=== PATIENT | female | born 1945 ===

== ENCOUNTER 2017-07-12 09:09 | Inpatient (IN) | payer SELFPAY ==
[2017-06-30 09:16] VITALS: BMI 40.2
[2017-07-12] MEDS ORDERED: Rocuronium 10 mg/ml (5 ml) ONE ×2 (09:35→12:04)
[2017-07-12] MEDS ORDERED: Lidocaine 4% (Laryng-O-Jet) Kit MM ONE ×2 (09:35→09:43)
[2017-07-12] MEDS ORDERED: Succinylcholine 200 mg/10 ml Inj IV ONE (09:35)
[2017-07-12] MEDS ORDERED: Propofol 10 mg/ml Inj (20 ML) ONE (09:35)
[2017-07-12] MEDS ORDERED: Midazolam 2 MG/2 ML VIAL ONE (09:35)
[2017-07-12] MEDS ORDERED: ceFAZolin IV 1 gm in Dextrose 2 GM/100 ML BAG IVPB ONE (10:07)
[2017-07-12] MEDS ORDERED: Bupivacaine 0.5% Inj(30mL) ONE (10:07)
--- NOTE | 2017-07-12 10:08 | CP.PCM.HP ---
History of Present Illness - History of Present Illness History of Present Illness: General surgery H & P for Dr. Indiana Quintana, PGY-1 Pt S & E at bedside. 72F w/PMH sig for recurrent ventral hernia s/p laparoscopic hernia repair (2016 ) admitted s/p open ventral hernia repair. Pt seen/evaluated in clinic with recommendations for elective ventral hernia repair and subsequent admission afterwards. Pt reports symptoms of pain upon standing due to hernia. Denies other complaints. PMH: HTN, DM, recurrent ventral hernia, morbid obesity PSH: Laparoscopic ventral hernia repair (2016) All: NKDA Present on Admission - Present on Admission Any Indicators Present on Admission: No History of DVT/PE: No History of Uncontrolled Diabetes: No Urinary Catheter: No Decubitus Ulcer Present: No Review of Systems - Review of Systems All systems: reviewed and no additional remarkable complaints except - Constitutional Constitutional: absent: Chills, Fever - EENT Eyes: absent: Change in Vision - Cardiovascular Cardiovascular: absent: Chest Pain - Respiratory Respiratory: absent: Cough - Gastrointestinal Gastrointestinal: Abdominal Pain (upon standing). absent: Change in Bowel Habits, Nausea, Vomiting - Genitourinary Genitourinary: absent: Change in Urinary Stream - Neurological Neurological: absent: Weakness - Psychiatric Psychiatric: absent: Change in Appetite Past Patient History - Infectious Disease Hx of Infectious Diseases: None - Tetanus Immunizations Tetanus Immunization: Unknown - Past Medical History & Family History Past Medical History?: Yes - Past Social History Smoking Status: Former Smoker - CARDIAC Hx Cardiac Disorders: Yes Hx Hypercholesterolemia: Yes Hx Hypertension: Yes - PULMONARY Hx Respiratory Disorders: No - NEUROLOGICAL Hx Neurological Disorder: No - HEENT Hx HEENT Problems: No - RENAL Hx Chronic Kidney Disease: No - ENDOCRINE/METABOLIC Hx Endocrine Disorders: Yes Hx Diabetes Mellitus Type 2: Yes Hx Hyperthyroidism: Yes Hx Hypothyroidism: Yes - HEMATOLOGICAL/ONCOLOGICAL Hx Blood Disorders: No Hx AIDS: No Hx Human Immunodeficiency Virus (HIV): No - INTEGUMENTARY Hx Dermatological Problems: No - MUSCULOSKELETAL/RHEUMATOLOGICAL Hx Musculoskeletal Disorders: No Hx Arthritis: Yes Hx Falls: No - GASTROINTESTINAL Hx Gastrointestinal Disorders: No - GENITOURINARY/GYNECOLOGICAL Hx Genitourinary Disorders: No - PSYCHIATRIC Hx Psychophysiologic Disorder: Yes Hx Depression: Yes Hx Substance Use: No - SURGICAL HISTORY Hx Surgeries: Yes (colon surgery 12/25/2014) Hx Herniorrhaphy: Yes (INCISONAL HERNIA) Other/Comment: Exploratory laparotomy with sigmoid colon resection on 12/25/14 - ANESTHESIA Hx Anesthesia: Yes Hx Anesthesia Reactions: No Hx Malignant Hyperthermia: No Has any member of the family had a problem w/ anesthesia?: No Meds Allergies/Adverse Reactions: Allergies Allergy/AdvReac Type Severity Reaction Status Date / Time No Known Allergies Allergy Verified 07/12/17 11:45 Physical Exam - Constitutional Appears: Non-toxic, No Acute Distress - Head Exam Head Exam: ATRAUMATIC, NORMAL INSPECTION, NORMOCEPHALIC - Eye Exam Eye Exam: EOMI, Normal appearance - ENT Exam ENT Exam: Mucous Membranes Moist, Normal Exam - Neck Exam Neck exam: Positive for: Full Rom, Normal Inspection - Respiratory Exam Respiratory Exam: Clear to Auscultation Bilateral, NORMAL BREATHING PATTERN - Cardiovascular Exam Cardiovascular Exam: REGULAR RHYTHM, +S1, +S2 - GI/Abdominal Exam GI & Abdominal Exam: Hernia (ventral, lower abdomen), Soft. absent: Distended ( obese), Firm, Guarding, Rebound, Rigid, Tenderness - Extremities Exam Extremities exam: Positive for: normal inspection - Neurological Exam Neurological exam: Alert, CN II-XII Intact, Oriented x3 - Psychiatric Exam Psychiatric exam: Normal Affect, Normal Mood - Skin Skin Exam: Dry, Intact, Normal Color, Warm Results - Vital Signs Recent Vital Signs: Last Vital Signs Temp 97.6 F 07/01/17 07:35 Pulse 76 07/01/17 07:35 Resp 18 07/01/17 07:35 BP 118/74 07/01/17 07:35 Pulse Ox - Labs Labs: Laboratory Results - last 24 hr 07/12/17 09:49 POC Glucose (mg/dL) 149 H Assessment & Plan - Assessment and Plan (Free Text) Assessment: 72F w/PMH sig for DM, HTN, recurrent ventral hernia admitted s/p open ventral hernia repair Plan: Admit to med-surg Pain control IVF Anti-emetic SCDs/TEDs Encourage IS use PT/ambulate VS Q8H Insulin sliding scale Accuchecks resume home meds Diabetic/HHD DW attending Lilian, PGY-1 - Date & Time Date: 07/12/17 Time: 10:50 Decision To Admit - Pt Status Changed To: Hospital Disposition Of: Inpatient - Admit Certification Admit to Inpatient:: After my assessment, the patient will require hospitalization for at least two midnights. This is because of the severity of symptoms shown, intensity of services needed, and/or the medical risk in this patient being treated as an outpatient. - . Bed Request Type: Med/Surg Admitting Physician: Herman Horvath
[2017-07-12] MEDS ORDERED: Lactated Ringer's 1,000 ML IV ONE ×4 (10:15→14:35)
[2017-07-12] MEDS: HYDROmorphone 0.5 mg/0.5 ml ISec IVP PRN ×5 (12:55→17:08)
--- NOTE | 2017-07-12 15:24 | PCM.SURG1 ---
Surgeon's Initial Post Op Note - Surgeon's Notes Surgeon: Herman Horvath MD [employer] Specialist: Jamal Camara PGY-3; Sobeida Quintana PGY-1 Pre-Operative Diagnosis: Recurrent ventral hernia Operative Findings: see op report Post-Operative Diagnosis: ventral hernia Operation Performed: open ventral hernia repair with mesh, enterolysis Specimen/Specimens Removed: None Estimated Blood Loss: EBL {In ML}: 10 Blood Products Given: N/A Drains Used: Stew Post-Op Condition: Good Date of Surgery/Procedure: 07/12/17 Time of Surgery/Procedure: 12:05
[2017-07-12] MEDS: Insulin Lispro (humaLOG) 100 Units/ml Inj SC SCH ×2 (17:14→21:37)
[2017-07-12] MEDS ORDERED: DiphenhydrAMINE 50 mg/ml Inj IVP PRN (22:54)
[2017-07-13] MEDS: HYDROmorphone 0.5 mg/0.5 ml ISec IVP PRN (05:09)
[2017-07-13] MEDS: Levothyroxine 125 MCG TAB PO SCH (06:29)
--- NOTE | 2017-07-13 07:14 | CP.PCM.PN ---
Subjective - Date & Time of Evaluation Date of Evaluation: 07/13/17 Time of Evaluation: 07:11 - Subjective Subjective: General Surgery: Dr Horvath Pt S&E. POD#1 s/p ventral hernia repair. Pt states pain well controlled. Tolerating CLD. denies any flatus yet. Using incentive spirometer. Has not yet been OOB to ambulate. Denies N/V, F/C drain 80cc serosanguinous Objective - Vital Signs/Intake and Output Vital Signs (last 24 hours): Temp Pulse Resp BP Pulse Ox 98.6 F 100 H 20 112/74 95 07/12/17 23:44 07/12/17 23:44 07/12/17 23:44 07/12/17 23:44 07/12/17 23:44 Intake and Output: 07/13/17 07/13/17 06:59 18:59 Intake Total 200 Balance 200 - Medications Medications: Current Medications Aspirin (Aspirin Chewable) 81 mg PO DAILY [facility] Last Admin: 07/12/17 17:14 Dose: 81 mg Diphenhydramine HCl (Benadryl) 25 mg IVP HS PRN PRN Reason: Insomnia Last Admin: 07/12/17 23:16 Dose: 25 mg Hydromorphone HCl (Dilaudid) 0.5 mg IVP Q3 PRN PRN Reason: Pain, moderate (4-7) Last Admin: 07/13/17 05:09 Dose: 0.5 mg Insulin Human Lispro (Humalog) 0 units SC ACHS [facility] PRN Reason: Protocol Last Admin: 07/12/17 21:37 Dose: Not Given Levothyroxine Sodium (Synthroid) 125 mcg PO DAILY@0630 [facility] Last Admin: 07/13/17 06:29 Dose: 125 mcg Losartan Potassium (Cozaar) 25 mg PO DAILY [facility] Last Admin: 07/12/17 17:08 Dose: 25 mg Ondansetron HCl (Zofran Inj) 4 mg IVP Q4 PRN PRN Reason: Nausea/Vomiting Last Admin: 07/12/17 15:19 Dose: 4 mg - Constitutional Appears: Non-toxic, No Acute Distress - Head Exam Head Exam: NORMAL INSPECTION - Eye Exam Eye Exam: Normal appearance - ENT Exam ENT Exam: Mucous Membranes Moist - Respiratory Exam Respiratory Exam: absent: Accessory Muscle Use, Respiratory Distress - Cardiovascular Exam Cardiovascular Exam: REGULAR RHYTHM. absent: Tachycardia - GI/Abdominal Exam GI & Abdominal Exam: Soft, Tenderness (post-op and appropriate). absent: Distended, Firm, Guarding, Rigid Additional comments: midline dressing with minimal saturation - Neurological Exam Neurological Exam: Alert, Awake, Oriented x3 - Psychiatric Exam Psychiatric exam: Normal Affect, Normal Mood - Skin Skin Exam: Normal Color Assessment and Plan - Assessment and Plan (Free Text) Assessment: 72F POD#1 s/p ventral hernia repair Plan: cont CLD, monitor for flatus OOB and ambulate cont pain control PRN continue incentive spirometer possible d/c today vs tomorrow pending pt progress will d/w Dr Alexandru Camara, PGY3
[2017-07-13] MEDS ORDERED: HYDROmorphone 0.5 mg/0.5 ml ISec IVP PRN (07:16)
[2017-07-13] MEDS: Insulin Lispro (humaLOG) 100 Units/ml Inj SC SCH ×4 (09:23→22:06)
[2017-07-13] MEDS: Oxycodone/Acetaminophen 5/325 mg Tab PO PRN ×2 (15:05→20:04)
--- NOTE | 2017-07-13 22:35 | OP ---
PROCEDURE DATE: 07/12/2017 SURGEON: Herman Horvath M.D. ASSISTANTS: Dr. Camara and Dr. Quintana. ANESTHESIA: General. PREOPERATIVE DIAGNOSIS: Recurrent incisional hernia. POSTOPERATIVE DIAGNOSIS: Recurrent incisional hernia. PROCEDURE: Incisional hernia repair with mesh and enterolysis. DESCRIPTION OF OPERATION: With the patient in the supine position under adequate general anesthesia, the abdomen was prepped and draped in the usual sterile manner. The patient is status post a previous Pfannenstiel incision, which had herniated and she is also status post a laparoscopic incisional hernia repair. A longitudinal midline incision was made in the lower abdomen from the pubis to the umbilicus and the peritoneum was opened in the midline. The previously placed laparoscopic mesh was palpable, fixed to both sides of the midline; however, it appeared to be prolapsed into herniation into the abdominal anterior pannus and extending when the patient is standing over the pubic tubercle. The small bowel was completely freed from any adhesions to the mesh and displaced into the upper abdomen. Omental adhesions were noted primarily to the left side of the abdominal wall and the mesh and these were lysed as well and a portion of the mesh, which was flaccid was excised along with a portion of the adherent omentum. The mesh which was well incorporated into the peritoneal surface of the abdominal wall was not removed. In addition, transfascial sutures in the lower portion of the wound were also noted to be loose and they were removed. The defect was primarily in the area just above the pubic tubercle and there was suspicion of a bladder diverticulum entering this hernia as well on the CAT scan. The patient had a Aguilar catheter placed prior to surgery and careful dissection was made with the atrophic uterus being identified and the Aguilar catheter palpated. A peritoneal flap was raised anterior to the uterus to assure that no bladder was incorporated within the abdominal cavity. When all adhesions had been lysed, there was noted to be fascial thinning just above the pubic tubercle and the midline was partially closed from the inferior border of the incision approximately a third [address] way up using running suture of double-stranded #1 PDS to ensure that the mesh could be properly placed all the way down to the pubic tubercle. So, once the midline had been partially closed, a 15 x 20 cm skirted Parietex mesh was positioned with the coated surface facing the bowel and the skirt against the anterior abdominal wall. The skirted portion of the mesh was then widely fixed to the anterior abdominal wall using the appropriate stapler and the mesh was noted to lay fairly taut against the abdominal wall with no area of sagging. Once the mesh had been completely implanted, the remainder of the midline was sutured closed with minimal tension using running suture of double-stranded #1 PDS. In addition, a horizontal area of weakness along the lower edge of the Pfannenstiel incision was reinforced with an additional transverse layer of 0 Vicryl. A drain was placed in the subcutaneous layer and brought out through a stab incision and the incision was closed with interrupted subcutaneous tissues of 3-0 Vicryl and skin ruslan. A dry sterile dressing was applied. The patient tolerated the procedure well and transferred to the recovery room in stable condition. Estimated blood loss for the procedure was 50 mL. Herman Horvath MD
[2017-07-14] MEDS: Oxycodone/Acetaminophen 5/325 mg Tab PO PRN ×2 (02:41→08:26)
[2017-07-14] MEDS: Levothyroxine 125 MCG TAB PO SCH (05:58)
--- NOTE | 2017-07-14 07:34 | CP.PCM.PN ---
Subjective - Date & Time of Evaluation Date of Evaluation: 07/14/17 Time of Evaluation: 07:32 - Subjective Subjective: General Surgery: Dr Horvath Pt S&E. POD#2 s/p ventral hernia. Pt states pain is improved. Still with throat discomfort. Denies any further nausea. Has not yet passed flatus. OOB and ambulating. Objective - Vital Signs/Intake and Output Vital Signs (last 24 hours): Temp Pulse Resp BP Pulse Ox 99.3 F 101 H 18 101/66 96 07/13/17 23:25 07/13/17 23:25 07/13/17 23:25 07/13/17 23:25 07/13/17 23:25 Intake and Output: 07/14/17 07/14/17 06:59 18:59 Intake Total 100 Output Total 200 Balance -100 - Medications Medications: Current Medications Aspirin (Aspirin Chewable) 81 mg PO DAILY [facility] Last Admin: 07/13/17 08:26 Dose: 81 mg Diphenhydramine HCl (Benadryl) 25 mg IVP HS PRN PRN Reason: Insomnia Last Admin: 07/12/17 23:16 Dose: 25 mg Hydromorphone HCl (Dilaudid) 0.5 mg IVP Q3 PRN PRN Reason: Pain, moderate (4-7) Last Admin: 07/13/17 11:27 Dose: 0.5 mg Insulin Human Lispro (Humalog) 0 units SC [facility] PRN Reason: Protocol Last Admin: 07/13/17 22:06 Dose: Not Given Levothyroxine Sodium (Synthroid) 125 mcg PO DAILY@0630 [facility] Last Admin: 07/14/17 05:58 Dose: 125 mcg Losartan Potassium (Cozaar) 25 mg PO DAILY [facility] Last Admin: 07/13/17 08:26 Dose: 25 mg Ondansetron HCl (Zofran Inj) 4 mg IVP Q4 PRN PRN Reason: Nausea/Vomiting Last Admin: 07/12/17 15:19 Dose: 4 mg Oxycodone/Acetaminophen (Percocet 5/325 Mg Tab) 1 tab PO Q4 PRN PRN Reason: Pain, Mild (1-3) Stop: 07/16/17 07:16 Last Admin: 07/14/17 02:41 Dose: 1 tab - Constitutional Appears: Non-toxic, No Acute Distress - Head Exam Head Exam: NORMAL INSPECTION - ENT Exam ENT Exam: Mucous Membranes Moist - Respiratory Exam Respiratory Exam: absent: Accessory Muscle Use, Respiratory Distress - Cardiovascular Exam Cardiovascular Exam: REGULAR RHYTHM. absent: Tachycardia - GI/Abdominal Exam GI & Abdominal Exam: Soft, Tenderness (post-op and appropriate). absent: Distended, Firm, Guarding Additional comments: midline dressing w/ minimal saturation - Neurological Exam Neurological Exam: Alert, Awake, Oriented x3 - Psychiatric Exam Psychiatric exam: Normal Affect, Normal Mood - Skin Skin Exam: Normal Color, Warm Assessment and Plan - Assessment and Plan (Free Text) Assessment: 72F POD#2 s/p ventral hernia repair Plan: cont IS will get PT eval monitor for flatus will d/w Dr Alexandru Camara, PGY3
[2017-07-14] MEDS: Insulin Lispro (humaLOG) 100 Units/ml Inj SC SCH ×4 (08:23→21:34)
[2017-07-14] MEDS: Simethicone 80 mg Chewtab PO PRN ×2 (14:53→16:29)
[2017-07-15] MEDS: Levothyroxine 125 MCG TAB PO SCH (06:29)
--- NOTE | 2017-07-15 07:19 | CP.PCM.PN ---
Subjective - Date & Time of Evaluation Date of Evaluation: 07/15/17 Time of Evaluation: 07:18 - Subjective Subjective: General Surgery Progress Note for Dr. Horvath Patient was seen and examined this AM at bedside. No acute events overnight aside from an isolated fever of 101.1. Patient complaining of abdominal pain on her right side. Tolerating CLD. Denies nausea vomiting fevers chills chest pain. Denies BM or flatus. Objective - Vital Signs/Intake and Output Vital Signs (last 24 hours): Temp Pulse Resp BP Pulse Ox 99.3 F 108 H 18 116/72 95 07/15/17 00:27 07/14/17 23:49 07/14/17 23:49 07/14/17 23:49 07/14/17 23:49 Intake and Output: 07/15/17 07/15/17 06:59 18:59 Output Total 10 Balance -10 - Medications Medications: Current Medications Acetaminophen (Tylenol 325mg Tab) 650 mg PO Q6 PRN PRN Reason: Temperature Last Admin: 07/14/17 23:27 Dose: 650 mg Aspirin (Aspirin Chewable) 81 mg PO DAILY [facility] Last Admin: 07/14/17 08:23 Dose: 81 mg Diphenhydramine HCl (Benadryl) 25 mg IVP HS PRN PRN Reason: Insomnia Last Admin: 07/12/17 23:16 Dose: 25 mg Insulin Human Lispro (Humalog) 0 units SC ACHS [facility] PRN Reason: Protocol Last Admin: 07/14/17 21:34 Dose: Not Given Levothyroxine Sodium (Synthroid) 125 mcg PO DAILY@0630 [facility] Last Admin: 07/15/17 06:29 Dose: 125 mcg Losartan Potassium (Cozaar) 25 mg PO DAILY [facility] Last Admin: 07/14/17 08:22 Dose: 25 mg Ondansetron HCl (Zofran Inj) 4 mg IVP Q4 PRN PRN Reason: Nausea/Vomiting Last Admin: 07/12/17 15:19 Dose: 4 mg Oxycodone/Acetaminophen (Percocet 5/325 Mg Tab) 1 tab PO Q4 PRN PRN Reason: Pain, Mild (1-3) Stop: 07/16/17 07:16 Last Admin: 07/14/17 08:26 Dose: 1 tab Simethicone (Mylicon Chew Tab) 80 mg PO TID PRN PRN Reason: Flatulence Last Admin: 07/14/17 16:29 Dose: 80 mg - Labs Labs: - Constitutional Appears: Non-toxic, No Acute Distress - Head Exam Head Exam: NORMAL INSPECTION - ENT Exam ENT Exam: Mucous Membranes Moist - Respiratory Exam Respiratory Exam: absent: Accessory Muscle Use, Respiratory Distress - Cardiovascular Exam Cardiovascular Exam: REGULAR RHYTHM. absent: Tachycardia - GI/Abdominal Exam GI & Abdominal Exam: Soft, Tenderness (post-op and appropriate). absent: Distended, Firm, Guarding Additional comments: midline dressing w/ minimal saturation - Neurological Exam Neurological Exam: Alert, Awake, Oriented x3 - Psychiatric Exam Psychiatric exam: Normal Affect, Normal Mood - Skin Skin Exam: Normal Color, Warm Assessment and Plan - Assessment and Plan (Free Text) Assessment: 72F POD#3 s/p ventral hernia repair Plan: cont IS OOB to chair monitor for flatus Monitor drain output FLD Will discuss with Dr. Alexandru Welch PGY2
[2017-07-15] MEDS: Oxycodone/Acetaminophen 5/325 mg Tab PO PRN ×2 (09:42→20:49)
[2017-07-15] MEDS: Insulin Lispro (humaLOG) 100 Units/ml Inj SC SCH ×4 (09:43→22:05)
[2017-07-16] MEDS: Levothyroxine 125 MCG TAB PO SCH (06:18)
[2017-07-16 08:18] VITALS: BP 116/71; PULSE 91; RESP 20; TEMP 98.7; O2SAT 94
[2017-07-16] MEDS: Insulin Lispro (humaLOG) 100 Units/ml Inj SC SCH ×2 (08:34→12:54)
--- NOTE | 2017-07-16 09:22 | CP.PCM.DIS ---
Provider - Provider Date of Admission: 07/12/17 12:44 Attending physician: Herman Horvath MD Time Spent in preparation of Discharge (in minutes): 15 Diagnosis - Discharge Diagnosis (1) Incisional hernia of anterior abdominal wall without obstruction or gangrene Status: Resolved Priority: High Comment: Recurrent, s/p laparoscopic repair one year ago. (2) Diabetes mellitus Status: Chronic Priority: Medium (3) Hypertension Status: Chronic Priority: Low Hospital Course - Lab Results Lab Results: Most Recent Lab Values POC Glucose (mg/dL) 160 mg/dL (65-110) H 07/16/17 06:09 - Hospital Course Hospital Course: Patient admitted for open repair of recurrent incisional hernia. Tolerated repair well. Gradual resumption of bowel function, diet advanced as tolerated. pain controlled with oral medication, drain removed. - Date & Time of H&P Date of H&P: 07/12/17 Time of H&P: 09:00 Discharge Exam - Head Exam Head Exam: NORMAL INSPECTION - Eye Exam Eye Exam: EOMI, Normal appearance, PERRL Pupil Exam: NORMAL ACCOMODATION - ENT Exam ENT Exam: Mucous Membranes Moist, Normal Exam - Neck Exam Neck exam: Full Rom - Respiratory Exam Respiratory Exam: NORMAL BREATHING PATTERN, UNREMARKABLE - Cardiovascular Exam Cardiovascular Exam: REGULAR RHYTHM - GI/Abdominal Exam GI & Abdominal Exam: Normal Bowel Sounds. absent: Distended Additional comments: Incision clean, dry with ruslan intact. Mild incisional tenderness. - Extremities Exam Extremities exam: full ROM, normal inspection Discharge Plan - Discharge Medications Prescriptions: oxyCODONE/Acetaminophen [Percocet 5/325 mg Tab] 1 ea PO Q4 PRN 3 Days #12 tab PRN Reason: Pain, Moderate (4-7) oxyCODONE/Acetaminophen [Percocet 5/325 mg Tab] 1 tab PO Q4 PRN 3 Days #12 tab PRN Reason: Pain, Moderate (4-7) - Follow Up Plan Condition: GOOD Disposition: HOME/ ROUTINE Additional Instructions: f/u Surgical Clinic one week Clinical Quality Measures - Date & Time of Discharge Summary Date of Discharge Summary: 07/16/17 Time of Discharge Summary: 09:34
[2017-07-16] MEDS ORDERED: Oxycodone/Acetaminophen 5/325 mg Tab PO PRN (09:28)
== END 2017-07-16 13:53 | disposition home or self-care (01) | DRG 160 ==
LOC: H.OPSURG 09:09 → H.MEDSURG1 12:44
PROVIDERS: ADMIT Specialist; ATTEND Specialist
PROC: 0WUF0JZ Supplement Abdominal Wall with Synthetic Substitute, Open Approach (ICD-10-PCS; principal; 2017-07-12 11:30)
DX: K43.2 Incisional hernia without obstruction or gangrene (principal); E11.9 Type 2 diabetes mellitus without complications; E66.01 Morbid (severe) obesity due to excess calories; I10 Essential (primary) hypertension; E78.00 Pure hypercholesterolemia, unspecified; E03.9 Hypothyroidism, unspecified; Z87.891 Personal history of nicotine dependence

== ENCOUNTER 2017-07-21 13:44 | Inpatient (IN) | payer SELFPAY ==
[2017-07-21 13:44] VITALS: BMI 40.2
[2017-07-21] MEDS ORDERED: Sodium Chloride 0.9% 1,000 ML IV STA (14:57)
[2017-07-21] MEDS ORDERED: Morphine 4 MG/ML VIAL IV STA (14:57)
--- NOTE | 2017-07-21 15:26 | ED PDOC ---
HPI: General Adult Time Seen by Provider: 07/21/17 14:33 Chief Complaint (Nursing): Fever Chief Complaint (Provider): Fever History Per: Patient History/Exam Limitations: no limitations Onset/Duration Of Symptoms: Days (3) Have you had recent travel within the past 21 days to any of the following countries: [place], [place], [place] or [place]?: No Current Symptoms Are (Timing): Still Present Additional Complaint(s): 72yo female, presents to ED for evaluation of a persistent fever for the past 3 days with Tmax of 100.7 degrees. On July 12, the patient had an open ventral hernia repair; she informed Dr. Horvath about her fever and was informed to come to the ER for evaluation. She also reports diffuse abdominal pain, and drainage from the incision site. Patient denies taking any antibiotics. Past Medical History Reviewed: Historical Data, Nursing Documentation, Vital Signs Vital Signs: Last Vital Signs Temp 97.7 F 07/21/17 13:48 Pulse 87 07/21/17 13:48 Resp 18 07/21/17 13:48 BP 146/62 07/21/17 13:48 Pulse Ox 99 07/21/17 15:29 - Medical History PMH: Arthritis, Depression, Diabetes, HTN, Hypercholesterolemia, Hyperthyroidism , Hypothyroidism Denies: HIV, Chronic Kidney Disease - Surgical History Surgical History: Hernia Repair - Family History Family History: States: No Known Family Hx - Home Medications Home Medications: Ambulatory Orders Medication Instructions Recorded Losartan [Cozaar] 25 mg PO DAILY 12/24/14 Aspirin [Adult Low Dose Aspirin EC] 81 mg PO DAILY 07/21/17 Ibuprofen [Motrin Tab] 400 mg PO Q6H PRN 07/21/17 Levothyroxine [Synthroid] 100 mcg PO DAILY 07/21/17 metFORMIN [glucOPHAGE] 500 mg PO BID 07/21/17 oxyCODONE/Acetaminophen [Percocet 1 tab PO Q4 PRN 07/21/17 5/325 mg Tab] - Allergies Allergies/Adverse Reactions: Allergies Allergy/AdvReac Type Severity Reaction Status Date / Time No Known Allergies Allergy Verified 07/21/17 13:47 Review of Systems ROS Statement: Except As Marked, All Systems Reviewed And Found Negative Constitutional: Positive for: Fever Gastrointestinal: Positive for: Abdominal Pain (diffuse), Other (discharge from hernia repair site) Physical Exam - Reviewed Nursing Documentation Reviewed: Yes Vital Signs Reviewed: Yes - Physical Exam Appears: Positive for: Uncomfortable (moderate painful distress) Head Exam: Positive for: ATRAUMATIC, NORMAL INSPECTION, NORMOCEPHALIC Skin: Positive for: Normal Color, Warm, Dry Eye Exam: Positive for: Normal appearance Neck: Positive for: Supple Cardiovascular/Chest: Positive for: Regular Rate, Rhythm Respiratory: Positive for: Normal Breath Sounds Gastrointestinal/Abdominal: Positive for: Soft, Tenderness (diffuse), Other ( vertical incision with ruslan in place midline, inferior to the umbilicus. Lower portion of the incision with yellow discharge.) Back: Positive for: Normal Inspection Extremity: Positive for: Normal ROM. Negative for: Deformity, Swelling Neurologic/Psych: Positive for: Alert, Oriented - Laboratory Results Result Diagrams: 07/21/17 15:15 07/21/17 15:15 - ECG O2 Sat by Pulse Oximetry: 99 (RA) Pulse Ox Interpretation: Normal - Physician Consult Information Time Consulting Physican Contacted: 18:20 Physician Contacted: Herman Horvath Outcome Of Conversation: Findings discussed, notify business services vice president, admit to FP. Medical Decision Making Medical Decision Making: Impression: Post-op fever Plan: -- Labs -- CT AP w/ IV Contrast -- IV Fluids -- Morphine 2mg IV Accession No. : [id number] Patient Name / ID : MAYANK GUSTAFSON / [id number] Exam Date : 07/21/2017 16:24:36 ( Approved ) Study Comment : Sex / Age : F / 72Y Creator : Jared Skaggs MD Dictator : Jared Skaggs MD Solid Propellant Processor : Marine Gear Keeper : Jared Skaggs MD Approver2 : Report Date : 07/21/2017 18:05:20 My Comment : This report is currently processing and HAS NOT BEEN OFFICIALLY SIGNED BY THE PHYSICIAN - ESTIMATED TIME OF APPROVAL IS 07/21/2017 18:12. PROCEDURE: CT Abdomen and Pelvis with contrast HISTORY: Fever, abd pain, s/p hernia surgery COMPARISON: Abdomen pelvis CT with contrast 05/03/2017 TECHNIQUE: Following the intravenous administration of iodinated contrast material, a CT examination of the abdomen and pelvis performed from the domes of the diaphragms to the symphysis pubis with reformatted datasets provided not only axial but also sagittal and coronal planes. Oral contrast was not administered as per referring physician request. Contrast dose: Omnipaque 300, 95 cc Radiation dose: Total exam DLP = 1287.84 mGy-cm. This CT exam was performed using one or more of the following dose reduction techniques: Automated exposure control, adjustment of the mA and/or kV according to patient size, and/or use of iterative reconstruction technique. FINDINGS: LOWER THORAX: Cardiomegaly is again evident. Limited bilateral basilar dependent atelectasis is noted however there is no pleural or pericardial effusion identified or significant infiltrate. Definable again noted right base posteriorly. LIVER: Hepatic steatosis again appreciated. Borderline nodular surface of the liver may indicate cirrhosis. No hepatic mass or definite intrahepatic biliary dilatation identified. GALLBLADDER AND BILE DUCTS: The gallbladder is distended but otherwise appears unremarkable. No radiodense cholelithiasis. PANCREAS: Stable unremarkable appearing pancreas. No dilatation of the pancreatic duct. SPLEEN: Unremarkable. ADRENALS: Unremarkable. No mass. KIDNEYS AND URETERS: No definite obstructive uropathy bilaterally. Left parapelvic cysts again evident. No renal parenchymal mass grossly evident. VASCULATURE: Atherosclerotic but non aneurysmal abdominal aorta again evident. BOWEL: Jonnathan mariano is undergone prior bowel surgery in the past (2016) with mild-to- moderate fecal loading seen in the right hemicolon. The bowel is not appear obstructed including small bowel loops. There is marked free intrarenal gas identified however with a fluid collection identified at the anterior inferior abdomen intraperitoneal space measuring 14.1 x 5.2 x 14.1 cm (transverse by anteroposterior by superoinferior dimensions). Peripheral enhances related as well as trace internal gas in a pattern suggestive of an abscess. Emphysematous changes are also seen affecting the left side of the abdominal wall relatively diffusely including both dependent and lateral portions, potentially related to the abscess. The patient reportedly recently underwent abdominal hernia repair. Limited postoperative changes seen related to the anterior abdominal wall inferior to the incision site. The amount of free intraperitoneal gas. Shotty context with surgery performed reportedly at least 9 days previously 2017. This gas may be a function of the abscess. Surgical consultation is advised. APPENDIX: Not clearly identified. Further clinical correlation advised. PERITONEUM: Please see bowel section above. LYMPH NODES: Unremarkable. No enlarged lymph nodes. BLADDER: Unremarkable. REPRODUCTIVE: Unremarkable. BONES: No acute fracture. OTHER FINDINGS: None. IMPRESSION: A likely postoperative abscess identified in the inferior nondependent intraperitoneal space in the lower abdomen measuring 14.1 cm greatest dimension with prominent intraperitoneal gas likely related. Emphysematous changes seen involving the left cathy abdominal wall as described above, also likely related. Surgical consultation advised. Hepatic steatosis and questionable nodular surface the liver. Consider possible cirrhotic pattern. Postoperative changes are noted along the inferior anterior abdominal wall. Scribe Attestation: Documented by Rosa Price, acting as a scribe for Albina Calvillo MD Provider Scribe Attestation: All medical record entries made by the Scribe were at my direction and personally dictated by me. I have reviewed the chart and agree that the record accurately reflects my personal performance of the history, physical exam, medical decision making, and the department course for this patient. I have also personally directed, reviewed, and agree with the discharge instructions and disposition. Disposition - Clinical Impression Clinical Impression: Intraperitoneal abscess - Patient ED Disposition Is Patient to be Admitted: Yes - Disposition Disposition Time: 18:24 Condition: GUARDED Forms: [employer] ([place]) - Pt Status Changed To: Hospital Disposition Of: Inpatient - Admit Certification Admit to Inpatient:: After my assessment, the patient will require hospitalization for at least two midnights. This is because of the severity of symptoms shown, intensity of services needed, and/or the medical risk in this patient being treated as an outpatient. - POA Present On Arrival: Surgical Site Infection
[2017-07-21] MEDS ORDERED: Morphine 4 MG/ML VIAL ONE (15:31)
[2017-07-21 15:52] LABS: VENOUS BLOOD GAS BASE EXCESS 0.3 mmol/L (0.0-2.0); VENOUS BLOOD GAS PCO2 48 mmHg (40-60); VENOUS BLOOD GAS PO2 35 mm/Hg (30-55); VENOUS BLOOD PH 7.35 (7.32-7.43)
[2017-07-21 16:05] LABS: BASO # 0.1 K/uL (0.0-0.2); BASO % 0.5 % (0.0-2.0); EOS # 0.3 K/uL (0.0-0.7); EOS % 1.7 % (0.0-4.0); HEMOGLOBIN 13.6 g/dL (12.0-16.0); LYMPH # 3.2 K/uL (1.0-4.3); LYMPH % 19.1 % (20.0-40.0); MEAN CELL VOLUME 89.3 fl (81.0-99.0); MEAN CORPUSCULAR HEMOGLOBIN 29.3 pg (27.0-31.0); MEAN CORPUSCULAR HGB CONC 32.9 g/dL (33.0-37.0); MONO # 1.3 K/uL (0.0-0.8); MONO % 8.1 % (0.0-10.0); NEUT # 11.7 K/uL (1.8-7.0); NEUT % 70.6 % (50.0-75.0); NRBC % 0.1 % (0.0-0.0); RBC 4.62 Mil/uL (3.80-5.20); RED CELL DISTRIBUTION WIDTH 14.6 % (11.5-14.5); WHITE BLOOD COUNT 16.6 K/uL (4.8-10.8)
[2017-07-21] MEDS ORDERED: Sodium Chloride 0.9% 50 ML IV ONE (16:23)
[2017-07-21] MEDS ORDERED: Iohexol 300 100 ML IJ ONE (16:23)
[2017-07-21 16:27] LABS: INR 1.1 (0.9-1.2); PARTIAL THROMBOPLASTIN TIME 29.7 Seconds (25.6-37.1)
[2017-07-21 16:49] LABS: ALB/GLOB RATIO 0.8 (1.0-2.1); ALBUMIN 3.7 g/dL (3.5-5.0); ALT/SGPT 86 U/L (9-52); AST/SGOT 102 U/L (14-36); BLOOD UREA NITROGEN 18 mg/dl (7-17); CALCIUM 8.9 mg/dL (8.4-10.2); GFR AFRICAN-AMERICAN > 60; GFR NON-AFRICAN AMERICAN > 60
[2017-07-21] MEDS ORDERED: Potassium Chloride 20 mEq ER Tab PO STA (16:51)
[2017-07-21 17:03] LABS: SQUAMOUS EPITHIAL 6 /hpf (0-5); URINE BACTERIA OCC (<OCC); URINE BILIRUBIN NEGATIVE (NEGATIVE); URINE BLOOD NEGATIVE (NEGATIVE); URINE CLARITY SLIGHTY-CLOUDY (Clear); URINE COLOR YELLOW (YELLOW); URINE GLUCOSE (UA) NEG (Normal); URINE LEUKOCYTE ESTERASE NEG Leu/uL (Negative); URINE NITRATE NEGATIVE (NEGATIVE); URINE PROTEIN NEGATIVE (NEGATIVE); URINE UROBILINOGEN 0.2-1.0 mg/dL (0.2-1.0)
[2017-07-21] MEDS ORDERED: Piperacillin/Tazobact 3.375 GM in Sodium Chloride 0.9% 100 ML IVPB STA (18:03)
--- NOTE | 2017-07-21 18:08 | CT ---
PROCEDURE: CT Abdomen and Pelvis with contrast HISTORY: Fever, abd pain, s/p hernia surgery COMPARISON: Abdomen pelvis CT with contrast 05/03/2017 TECHNIQUE: Following the intravenous administration of iodinated contrast material, a CT examination of the abdomen and pelvis performed from the domes of the diaphragms to the symphysis pubis with reformatted datasets provided not only axial but also sagittal and coronal planes. Oral contrast was not administered as per referring physician request. Contrast dose: Omnipaque 300, 95 cc Radiation dose: Total exam DLP = 1287.84 mGy-cm. This CT exam was performed using one or more of the following dose reduction techniques: Automated exposure control, adjustment of the mA and/or kV according to patient size, and/or use of iterative reconstruction technique. FINDINGS: LOWER THORAX: Cardiomegaly is again evident. Limited bilateral basilar dependent atelectasis is noted however there is no pleural or pericardial effusion identified or significant infiltrate. Definable again noted right base posteriorly. LIVER: Hepatic steatosis again appreciated. Borderline nodular surface of the liver may indicate cirrhosis. No hepatic mass or definite intrahepatic biliary dilatation identified. GALLBLADDER AND BILE DUCTS: The gallbladder is distended but otherwise appears unremarkable. No radiodense cholelithiasis. PANCREAS: Stable unremarkable appearing pancreas. No dilatation of the pancreatic duct. SPLEEN: Unremarkable. ADRENALS: Unremarkable. No mass. KIDNEYS AND URETERS: No definite obstructive uropathy bilaterally. Left parapelvic cysts again evident. No renal parenchymal mass grossly evident. VASCULATURE: Atherosclerotic but non aneurysmal abdominal aorta again evident. BOWEL: Jonnathan mariano is undergone prior bowel surgery in the past (2016) with [id number] fecal loading seen in the right hemicolon. The bowel is not appear obstructed including small bowel loops. There is marked free intrarenal gas identified however with a fluid collection identified at the anterior inferior abdomen intraperitoneal space measuring 14.1 x 5.2 x 14.1 cm (transverse by anteroposterior by superoinferior dimensions). Peripheral enhances related as well as trace internal gas in a pattern suggestive of an abscess. Emphysematous changes are also seen affecting the left side of the abdominal wall relatively diffusely including both dependent and lateral portions, potentially related to the abscess. The patient reportedly recently underwent abdominal hernia repair. Limited postoperative changes seen related to the anterior abdominal wall inferior to the incision site. The amount of free intraperitoneal gas. Shotty context with surgery performed reportedly at least 9 days previously 07/12/2017. This gas may be a function of the abscess. Surgical consultation is advised. APPENDIX: Not clearly identified. Further clinical correlation advised. PERITONEUM: Please see bowel section above. LYMPH NODES: Unremarkable. No enlarged lymph nodes. BLADDER: Unremarkable. REPRODUCTIVE: Unremarkable. BONES: No acute fracture. OTHER FINDINGS: None. IMPRESSION: A likely postoperative abscess identified in the inferior nondependent intraperitoneal space in the lower abdomen measuring 14.1 cm greatest dimension with prominent intraperitoneal gas likely related. Emphysematous changes seen involving the left cathy abdominal wall as described above, also likely related. Surgical consultation advised. Hepatic steatosis and questionable nodular surface the liver. Consider possible cirrhotic pattern. Postoperative changes are noted along the inferior anterior abdominal wall. Findings discussed with Dr. Calvillo 07/21/2017 5:50 p.m. with written down and read back verification.
[2017-07-21] MEDS ORDERED: Potassium Chloride 20 mEq ER Tab PO ONE (18:35)
[2017-07-21] MEDS ORDERED: Vancomycin 1 g Inj ONE (18:35)
[2017-07-21] MEDS ORDERED: Sodium Chloride 0.9% 1,000 ML IV SCH ×2 (19:45→20:08)
[2017-07-21] MEDS ORDERED: Glucagon Recombinant 1 mg Inj IM PRN (19:59)
[2017-07-21] MEDS ORDERED: Dextrose 50% SYRINGE Inj (50 ml) IVP PRN (19:59)
--- NOTE | 2017-07-21 19:59 | CP.PCM.HP ---
History of Present Illness - History of Present Illness History of Present Illness: PMD: NHC Hx taken from patient, family and previous records Full code. Healthcare proxy: Son(Mohinder Leger, ) 72 y/o F with PMHx of NIDDM, HTN, NAFLD, presented to ED c/o abd pain and fever for the past 3-4 days. Patient had abd sx for hernia repair on 07/12/17. DC from hosp 07/16/16. Was doing well until 3-4 days ago when symptoms started. Max temp around 101.5, abd pain diffuse but more to RUQ, nausea occasionally, denies vomiting or diarrhea. Admits constipation since Sx but finally today she had a loose BM this morning NBNM. Patient also reports intermittent chills and sweating episodes. Denies dysuria, urinary incontinence or retention, CP, palpitations, dizziness, headache, cough or SOB. States pain improved after IV Morphine and denies nausea, chills, vision changes, dizziness at this time. ED course: VS: All WNL CBC, CMP, VBG, Ucx, BCx, EKG, CXR, CT abd and pelvis, UA Significant results: WBC 16.6, Lacte 3.7, ALT and AST elevation, K=3.[address] shows intrabdominal fluid collection and free air, poss abscess.(Please see full report) 1 L IV NS Bolus Zosyn 3.375g and Vanco 1g IV once Morphine 2mg IV once Potassium 20 meq once General Sx consult Present on Admission - Present on Admission Any Indicators Present on Admission: No Review of Systems - Review of Systems All systems: reviewed and no additional remarkable complaints except - Constitutional Constitutional: Anorexia, Chills, Fever - EENT Nose/Mouth/Throat: Dry Mouth - Gastrointestinal Gastrointestinal: Abdominal Pain, Constipation, Nausea - Integumentary Integumentary: Wounds (abd sx) Past Patient History - Infectious Disease Hx of Infectious Diseases: None - Tetanus Immunizations Tetanus Immunization: Unknown - Past Medical History & Family History Past Medical History?: Yes - Past Social History Smoking Status: Former Smoker - CARDIAC Hx Hypercholesterolemia: Yes Hx Hypertension: Yes - PULMONARY Hx Respiratory Disorders: No - NEUROLOGICAL Hx Neurological Disorder: No - HEENT Hx HEENT Problems: No - RENAL Hx Chronic Kidney Disease: No - ENDOCRINE/METABOLIC Hx Hypothyroidism: Yes - HEMATOLOGICAL/ONCOLOGICAL Hx Human Immunodeficiency Virus (HIV): No - INTEGUMENTARY Hx Dermatological Problems: No - MUSCULOSKELETAL/RHEUMATOLOGICAL Hx Arthritis: Yes - GASTROINTESTINAL Hx Gastrointestinal Disorders: Yes Hx Bowel Surgery: Yes Hx Fatty Liver Disease: Yes - GENITOURINARY/GYNECOLOGICAL Hx Genitourinary Disorders: No - PSYCHIATRIC Hx Depression: Yes - SURGICAL HISTORY Hx Surgeries: Yes (colon surgery 12/25/2014) Hx Herniorrhaphy: Yes (INCISONAL HERNIA) Other/Comment: Exploratory laparotomy with sigmoid colon resection on 12/25/14 - ANESTHESIA Hx Anesthesia: Yes Hx Anesthesia Reactions: No Hx Malignant Hyperthermia: No Meds Allergies/Adverse Reactions: Allergies Allergy/AdvReac Type Severity Reaction Status Date / Time No Known Allergies Allergy Verified 07/21/17 13:47 Physical Exam - Constitutional Appears: Non-toxic, In Acute Distress (mild) - Head Exam Head Exam: ATRAUMATIC, NORMAL INSPECTION - Eye Exam Eye Exam: EOMI Pupil Exam: PERRL - ENT Exam ENT Exam: Mucous Membranes Dry (mild) - Neck Exam Neck exam: Positive for: Full Rom - Respiratory Exam Respiratory Exam: Clear to Auscultation Bilateral, NORMAL BREATHING PATTERN. absent: Rales, Rhonchi, Wheezes - Cardiovascular Exam Cardiovascular Exam: REGULAR RHYTHM, +S1, +S2. absent: Systolic Murmur - GI/Abdominal Exam GI & Abdominal Exam: Distended, Guarding (mild), Normal Bowel Sounds, Tenderness (diffuse lower abd). absent: Rebound - Extremities Exam Extremities exam: Positive for: normal inspection. Negative for: calf tenderness, joint swelling - Back Exam Back exam: absent: CVA tenderness (L), CVA tenderness (R) - Neurological Exam Neurological exam: Alert, CN II-XII Intact, Oriented x3 - Psychiatric Exam Psychiatric exam: Normal Affect, Normal Mood - Skin Skin Exam: Erythema ( Mild. Sx wound edges), Warm Results - Vital Signs Recent Vital Signs: Last Vital Signs Temp 99.1 F 07/21/17 19:19 Pulse 87 07/21/17 13:48 Resp 18 07/21/17 13:48 BP 146/62 07/21/17 13:48 Pulse Ox 99 07/21/17 18:25 - Labs Result Diagrams: 07/21/17 15:15 07/21/17 15:15 Labs: Laboratory Results - last 24 hr 07/21/17 07/21/17 07/21/17 15:15 15:15 15:15 WBC 16.6 H D RBC 4.62 Hgb 13.6 Hct 41.3 MCV 89.3 MCH 29.3 MCHC 32.9 L RDW 14.6 H Plt Count 467 H D MPV 9.0 Neut % (Auto) 70.6 Lymph % (Auto) 19.1 L Ralls % (Auto) 8.1 Eos % (Auto) 1.7 Baso % (Auto) 0.5 Neut # 11.7 H Lymph # 3.2 Ralls # 1.3 H Eos # 0.3 Baso # 0.1 PT 12.0 INR 1.1 APTT 29.7 pO2 VBG pH VBG pCO2 VBG HCO3 VBG Total CO2 VBG O2 Sat (Calc) VBG Base Excess VBG Potassium Glucose Lactate FiO2 Crit Value Called To Crit Value Called By Crit Value Read Back Blood Gas Notified Time Sodium 139 Potassium 3.5 L Chloride 98 Carbon Dioxide 28 Anion Gap 17 BUN 18 H Creatinine 0.9 Est GFR ( Amer) > 60 Est GFR (Non-Af Amer) > 60 Random Glucose 116 H Calcium 8.9 Total Bilirubin 0.7 AST 102 H D ALT 86 H D Alkaline Phosphatase 246 H D Total Protein 8.1 Albumin 3.7 Globulin 4.4 H Albumin/Globulin Ratio 0.8 L Venous Blood Potassium Urine Color Urine Clarity Urine pH Ur Specific [place] Urine Protein Urine Glucose (UA) Urine Ketones Urine Blood Urine Nitrate Urine Bilirubin Urine Urobilinogen Ur Leukocyte Esterase Urine RBC (Auto) Urine Microscopic WBC Ur Squamous Epith Cells Urine Bacteria 07/21/17 07/21/17 15:15 15:45 WBC RBC Hgb Hct MCV MCH MCHC RDW Plt Count MPV Neut % (Auto) Lymph % (Auto) Ralls % (Auto) Eos % (Auto) Baso % (Auto) Neut # Lymph # Ralls # Eos # Baso # PT INR APTT pO2 35 VBG pH 7.35 VBG pCO2 48 VBG HCO3 24.2 VBG Total CO2 28.0 VBG O2 Sat (Calc) 70.7 H VBG Base Excess 0.3 VBG Potassium 3.6 Glucose 112 H Lactate 3.7 H FiO2 21.0 Crit Value Called To Andrew ponce Crit Value Called By 23 Crit Value Read Back Y Blood Gas Notified Time 1550 Sodium 135.0 Potassium Chloride 98.0 Carbon Dioxide Anion Gap BUN Creatinine Est GFR ( Amer) Est GFR (Non-Af Amer) Random Glucose Calcium Total Bilirubin AST ALT Alkaline Phosphatase Total Protein Albumin Globulin Albumin/Globulin Ratio Venous Blood Potassium 3.6 Urine Color Yellow Urine Clarity Slighty-cloudy Urine pH 6.0 Ur Specific [place] 1.016 Urine Protein Negative Urine Glucose (UA) Neg Urine Ketones Negative Urine Blood Negative Urine Nitrate Negative Urine Bilirubin Negative Urine Urobilinogen 0.2-1.0 Ur Leukocyte Esterase Neg Urine RBC (Auto) 3 Urine Microscopic WBC 1 Ur Squamous Epith Cells 6 H Urine Bacteria Occ H Assessment & Plan - Assessment and Plan (Free Text) Assessment: 72 y/o F with PMhx of NIDDM, HTN and NAFLD presents for eval of intrabdominal fluid collection s/p abd hernia repair Intrabdominal Abscess vs Seroma -No criteria for Sepsis or SIRS on admission -s/p abd hernia repair on 07/12/17 -CT abd pelvis: Intrabdominal fluid collection and free air(Suspected abscess). Please see full report. -Fever, chills and abd pain for 3-4 days -WBC 16,6, Initial lactate at ED 3.7 -VS WNL, No AMS. -Sx consulted with F/U recs -S/p Zosyn and Vanco IV once at ED -C/W Zosyn 3.375 g IV q6h -Repeat Lactate WNL -F/U Procalcitonin, CBC and CMP AM -Pain control -IR consult for drainage -NPO for now -IV NS at 100 mls/hr(S/P 1L bolus at ED) NIDDM -Chronic, Controlled -Last HgbA1c 7.5(05/19/17) -C/W Metformin 500 mg BID starting AM -Low dose SSI/ACHS -Hypoglicemia protocol HTN -Chronic, controlled, C/w home meds NAFLD -Chronic -ALT/AST elevation, Hx of Hepatic steatosis on previous imaging studies -NAFLD fib score: -1.84(F0-F2)No fibrosis vs mild/mod fibrosis -Obs for now -Revaluate after CMP AM and consider GI consult as needed Prophylactic measures -Heparin 5000 units SQ q8h/SCDs -Florastor BID PO.
[2017-07-21 20:26] LABS: VENOUS BLOOD GAS BASE EXCESS 2.8 mmol/L (0.0-2.0); VENOUS BLOOD GAS PCO2 40 mmHg (40-60); VENOUS BLOOD GAS PO2 15 mm/Hg (30-55); VENOUS BLOOD PH 7.44 (7.32-7.43)
[2017-07-21] MEDS: Sodium Chloride 0.9% 1,000 ML IV SCH (20:45)
[2017-07-21] MEDS ORDERED: Piperacillin/Tazobact 3.375 GM in Sodium Chloride 0.9% 100 ML IVPB SCH (21:00)
--- NOTE | 2017-07-21 21:27 | CP.PCM.CON ---
History of Present Illness - History of Present Illness History of Present Illness: General Surgery Consult For Dr. Horvath This is a 72F who was discharged 07/16/16 after having a reccurent ventral hernia repair. She reports that since discharge she is experiening RLQ pain. SHe is moving her bowels and passing gas. She reports fever of 100.7 at home and a feeling of fullness in her abdomen. PMH: HTN, DM, recurrent ventral hernia, morbid obesity PSH: Laparoscopic ventral hernia repair (2016) All: NKDA Review of Systems - Review of Systems All systems: reviewed and no additional remarkable complaints except - Constitutional Constitutional: Chills, Fever - Gastrointestinal Gastrointestinal: Abdominal Pain. absent: Loose Stools, Melena, Nausea, Vomiting Past Patient History - Infectious Disease Hx of Infectious Diseases: None - Tetanus Immunizations Tetanus Immunization: Unknown - Past Medical History & Family History Past Medical History?: Yes - Past Social History Smoking Status: Former Smoker - CARDIAC Hx Hypercholesterolemia: Yes Hx Hypertension: Yes - PULMONARY Hx Respiratory Disorders: No - NEUROLOGICAL Hx Neurological Disorder: No - HEENT Hx HEENT Problems: No - RENAL Hx Chronic Kidney Disease: No - ENDOCRINE/METABOLIC Hx Hyperthyroidism: Yes Hx Hypothyroidism: Yes - HEMATOLOGICAL/ONCOLOGICAL Hx Human Immunodeficiency Virus (HIV): No - INTEGUMENTARY Hx Dermatological Problems: No - MUSCULOSKELETAL/RHEUMATOLOGICAL Hx Arthritis: Yes - GASTROINTESTINAL Hx Gastrointestinal Disorders: No - GENITOURINARY/GYNECOLOGICAL Hx Genitourinary Disorders: No - PSYCHIATRIC Hx Depression: Yes - SURGICAL HISTORY Hx Surgeries: Yes (colon surgery 12/25/2014) Hx Herniorrhaphy: Yes (INCISONAL HERNIA) Other/Comment: Exploratory laparotomy with sigmoid colon resection on 12/25/14 - ANESTHESIA Hx Anesthesia: Yes Hx Anesthesia Reactions: No Hx Malignant Hyperthermia: No Meds Allergies/Adverse Reactions: Allergies Allergy/AdvReac Type Severity Reaction Status Date / Time No Known Allergies Allergy Verified 07/21/17 13:47 - Medications Medications: Current Medications Acetaminophen (Tylenol 325mg Tab) 650 mg PO Q6 PRN PRN Reason: Fever >100.4 F Aspirin (Ecotrin) 81 mg PO DAILY [facility] Dextrose (Dextrose 50% Inj) 0 ml IVP STAT PRN; Protocol PRN Reason: Hypoglycemia Protocol Docusate Sodium (Colace) 100 mg PO BID PRN PRN Reason: Constipation Glucagon (Glucagen Diagnostic Kit) 0 mg IM STAT PRN; Protocol PRN Reason: Hypoglycemia Protocol Heparin Sodium (Porcine) (Heparin) 5,000 units SC Q8 [facility] PRN Reason: Protocol Sodium Chloride (Sodium Chloride 0.9%) 1,000 mls @ 100 mls/hr IV .Q10H [facility] Stop: 07/22/17 00:56 Last Admin: 07/21/17 15:34 Dose: 100 mls/hr Sodium Chloride (Sodium Chloride 0.9%) 1,000 mls @ 100 mls/hr IV .Q10H [facility] Last Admin: 07/21/17 20:45 Dose: 100 mls/hr Piperacillin Sod/Tazobactam (Sod 3.375 gm/ Sodium Chloride) 100 mls @ 100 mls/ hr IVPB Q6H [facility] PRN Reason: Protocol Ibuprofen (Motrin Tab) 600 mg PO Q6 PRN PRN Reason: Pain, moderate (4-7) Insulin Human Regular (Humulin R) 0 units SC ACHS [facility] PRN Reason: Protocol Levothyroxine Sodium (Synthroid) 100 mcg PO DAILY [facility] Losartan Potassium (Cozaar) 25 mg PO DAILY [facility] Metformin HCl (Glucophage) 500 mg PO BID [facility] Ondansetron HCl (Zofran Inj) 4 mg IVP Q6 PRN PRN Reason: Nausea/Vomiting Oxycodone/Acetaminophen (Percocet 5/325 Mg Tab) 1 tab PO Q4 PRN PRN Reason: Pain, severe (8-10) Stop: 07/24/17 19:32 Physical Exam - Constitutional Appears: Non-toxic, No Acute Distress - Head Exam Head Exam: ATRAUMATIC, NORMOCEPHALIC - Eye Exam Eye Exam: Normal appearance - ENT Exam ENT Exam: Mucous Membranes Moist - Respiratory Exam Respiratory Exam: NORMAL BREATHING PATTERN - Cardiovascular Exam Cardiovascular Exam: +S1, +S2 - GI/Abdominal Exam GI & Abdominal Exam: Distended, Soft. absent: Firm, Guarding, Rigid Additional comments: [place] in pl;baljinder wall aproximated inscision mildly erytematous non draining. - Neurological Exam Neurological exam: Alert - Psychiatric Exam Psychiatric exam: Normal Affect, Normal Mood - Skin Skin Exam: Dry, Intact Results - Vital Signs Recent Vital Signs: Last Vital Signs Temp 99.1 F 07/21/17 19:19 Pulse 98 H 07/21/17 20:20 Resp 18 07/21/17 20:20 BP 137/77 07/21/17 20:20 Pulse Ox 96 07/21/17 20:20 - Labs Result Diagrams: 07/21/17 15:15 07/21/17 15:15 Labs: Laboratory Results - last 24 hr 07/21/17 07/21/17 07/21/17 15:15 15:15 15:15 WBC 16.6 H D RBC 4.62 Hgb 13.6 Hct 41.3 MCV 89.3 MCH 29.3 MCHC 32.9 L RDW 14.6 H Plt Count 467 H D MPV 9.0 Neut % (Auto) 70.6 Lymph % (Auto) 19.1 L [place] % (Auto) 8.1 Eos % (Auto) 1.7 Baso % (Auto) 0.5 Neut # 11.7 H Lymph # 3.2 [place] # 1.3 H Eos # 0.3 Baso # 0.1 PT 12.0 INR 1.1 APTT 29.7 pO2 VBG pH VBG pCO2 VBG HCO3 VBG Total CO2 VBG O2 Sat (Calc) VBG Base Excess VBG Potassium Glucose Lactate FiO2 Crit Value Called To Crit Value Called By Crit Value Read Back Blood Gas Notified Time Sodium 139 Potassium 3.5 L Chloride 98 Carbon Dioxide 28 Anion Gap 17 BUN 18 H Creatinine 0.9 Est GFR ( Amer) > 60 Est GFR (Non-Af Amer) > 60 Random Glucose 116 H Calcium 8.9 Total Bilirubin 0.7 AST 102 H D ALT 86 H D Alkaline Phosphatase 246 H D Total Protein 8.1 Albumin 3.7 Globulin 4.4 H Albumin/Globulin Ratio 0.8 L Venous Blood Potassium Urine Color Urine Clarity Urine pH Ur Specific [place] Urine Protein Urine Glucose (UA) Urine Ketones Urine Blood Urine Nitrate Urine Bilirubin Urine Urobilinogen Ur Leukocyte Esterase Urine RBC (Auto) Urine Microscopic WBC Ur Squamous Epith Cells Urine Bacteria 07/21/17 07/21/17 07/21/17 15:15 15:45 20:23 WBC RBC Hgb Hct MCV MCH MCHC RDW Plt Count MPV Neut % (Auto) Lymph % (Auto) [place] % (Auto) Eos % (Auto) Baso % (Auto) Neut # Lymph # [place] # Eos # Baso # PT INR APTT pO2 35 15 L VBG pH 7.35 7.44 H VBG pCO2 48 40 VBG HCO3 24.2 25.0 VBG Total CO2 28.0 28.4 H VBG O2 Sat (Calc) 70.7 H 27.1 L VBG Base Excess 0.3 2.8 H VBG Potassium 3.6 4.1 Glucose 112 H 127 H Lactate 3.7 H 1.7 FiO2 21.0 21.0 Crit Value Called To Andrew ponce Crit Value Called By 23 Crit Value Read Back Y Blood Gas Notified Time 1550 Sodium 135.0 135.0 Potassium Chloride 98.0 101.0 Carbon Dioxide Anion Gap BUN Creatinine Est GFR ( Amer) Est GFR (Non-Af Amer) Random Glucose Calcium Total Bilirubin AST ALT Alkaline Phosphatase Total Protein Albumin Globulin Albumin/Globulin Ratio Venous Blood Potassium 3.6 4.1 Urine Color Yellow Urine Clarity Slighty-cloudy Urine pH 6.0 Ur Specific [place] 1.016 Urine Protein Negative Urine Glucose (UA) Neg Urine Ketones Negative Urine Blood Negative Urine Nitrate Negative Urine Bilirubin Negative Urine Urobilinogen 0.2-1.0 Ur Leukocyte Esterase Neg Urine RBC (Auto) 3 Urine Microscopic WBC 1 Ur Squamous Epith Cells 6 H Urine Bacteria Occ H - Imaging and Cardiology CT scan - abdomen Status: Image reviewed by me, Report reviewed by me Assessment & Plan - Assessment and Plan (Free Text) Assessment: This is a 72F POD 9 s/p ventral hernia repair with mesh with a kaelyn mesh fluid collection, likely seroma vs abscess IR drainage tomorrow Monitor abdominal exam Continue medical care per primary team D/W Dr. Alexandru Welch PGY2
[2017-07-21] MEDS: Insulin Regular 100 units/ml SC SCH (22:00)
[2017-07-22] MEDS: Oxycodone/Acetaminophen 5/325 mg Tab PO PRN ×2 (00:45→21:15)
[2017-07-22] MEDS: Piperacillin/Tazobact 3.375 GM in Sodium Chloride 0.9% 100 ML IVPB SCH ×4 (02:34→21:17)
[2017-07-22 06:27] LABS: BASO # 0.1 K/uL (0.0-0.2); BASO % 0.8 % (0.0-2.0); EOS # 0.5 K/uL (0.0-0.7); EOS % 3.9 % (0.0-4.0); HEMOGLOBIN 11.8 g/dL (12.0-16.0); LYMPH # 2.5 K/uL (1.0-4.3); LYMPH % 19.6 % (20.0-40.0); MEAN CELL VOLUME 90.5 fl (81.0-99.0); MEAN CORPUSCULAR HEMOGLOBIN 29.9 pg (27.0-31.0); NEUT # 8.4 K/uL (1.8-7.0); NEUT % 67.7 % (50.0-75.0); NRBC % 0.1 % (0.0-0.0); RBC 3.95 Mil/uL (3.80-5.20); RED CELL DISTRIBUTION WIDTH 14.5 % (11.5-14.5); WHITE BLOOD COUNT 12.5 K/uL (4.8-10.8)
[2017-07-22] MEDS: Insulin Regular 100 units/ml SC SCH ×4 (06:47→22:47)
[2017-07-22 06:59] LABS: ALB/GLOB RATIO 0.7 (1.0-2.1); ALBUMIN 2.8 g/dL (3.5-5.0); ALT/SGPT 72 U/L (9-52); AST/SGOT 79 U/L (14-36); BLOOD UREA NITROGEN 15 mg/dl (7-17); CALCIUM 7.9 mg/dL (8.4-10.2); GFR AFRICAN-AMERICAN > 60; GFR NON-AFRICAN AMERICAN 54
--- NOTE | 2017-07-22 07:20 | CP.PCM.PN ---
Subjective - Date & Time of Evaluation Date of Evaluation: 07/22/17 Time of Evaluation: 06:45 - Subjective Subjective: General surgery progress note for Dr. Indiana Quintana, PGY-1 Pt S & E at bedside. Pt stable overnight, continues with ab pain. Objective - Vital Signs/Intake and Output Vital Signs (last 24 hours): Temp Pulse Resp BP Pulse Ox 98.4 F 74 17 99/62 L 98 07/22/17 04:55 07/22/17 04:55 07/22/17 04:55 07/22/17 04:55 07/22/17 04:55 - Medications Medications: Current Medications Acetaminophen (Tylenol 325mg Tab) 650 mg PO Q6 PRN PRN Reason: Fever >100.4 F Aspirin (Ecotrin) 81 mg PO DAILY [facility] Dextrose (Dextrose 50% Inj) 0 ml IVP STAT PRN; Protocol PRN Reason: Hypoglycemia Protocol Docusate Sodium (Colace) 100 mg PO BID PRN PRN Reason: Constipation Glucagon (Glucagen Diagnostic Kit) 0 mg IM STAT PRN; Protocol PRN Reason: Hypoglycemia Protocol Heparin Sodium (Porcine) (Heparin) 5,000 units SC Q8 [facility] PRN Reason: Protocol Last Admin: 07/22/17 00:41 Dose: 5,000 units Sodium Chloride (Sodium Chloride 0.9%) 1,000 mls @ 100 mls/hr IV .Q10H [facility] Last Admin: 07/21/17 20:45 Dose: 100 mls/hr Piperacillin Sod/Tazobactam (Sod 3.375 gm/ Sodium Chloride) 100 mls @ 100 mls/ hr IVPB Q6H [facility] PRN Reason: Protocol Last Admin: 07/22/17 02:34 Dose: 100 mls/hr Ibuprofen (Motrin Tab) 600 mg PO Q6 PRN PRN Reason: Pain, moderate (4-7) Insulin Human Regular (Humulin R) 0 units SC ACHS [facility] PRN Reason: Protocol Last Admin: 07/22/17 06:47 Dose: Not Given Levothyroxine Sodium (Synthroid) 100 mcg PO DAILY [facility] Losartan Potassium (Cozaar) 25 mg PO DAILY [facility] Metformin HCl (Glucophage) 500 mg PO BID [facility] Ondansetron HCl (Zofran Inj) 4 mg IVP Q6 PRN PRN Reason: Nausea/Vomiting Oxycodone/Acetaminophen (Percocet 5/325 Mg Tab) 1 tab PO Q4 PRN PRN Reason: Pain, severe (8-10) Stop: 07/24/17 19:32 Last Admin: 07/22/17 00:45 Dose: 1 tab Saccharomyces Boulardii (Florastor) 250 mg PO BID [facility] - Labs Labs: 07/22/17 04:32 07/22/17 04:32 PT 12.0 Seconds (9.8-13.1) 07/21/17 15:15 INR 1.1 (0.9-1.2) 07/21/17 15:15 APTT 29.7 Seconds (25.6-37.1) 07/21/17 15:15 - Constitutional Appears: Non-toxic, No Acute Distress - Head Exam Head Exam: ATRAUMATIC, NORMAL INSPECTION, NORMOCEPHALIC - Eye Exam Eye Exam: EOMI, Normal appearance - ENT Exam ENT Exam: Mucous Membranes Moist, Normal Exam - Neck Exam Neck Exam: Full ROM, Normal Inspection - Respiratory Exam Respiratory Exam: NORMAL BREATHING PATTERN - Cardiovascular Exam Cardiovascular Exam: REGULAR RHYTHM - GI/Abdominal Exam GI & Abdominal Exam: Soft. absent: Distended (obese), Firm, Guarding, Rigid Additional comments: Midline surgical site with every other staple removed, no drainage, erythema, no noted fluctuance - Extremities Exam Extremities Exam: Normal Inspection - Neurological Exam Neurological Exam: Alert, Awake, Oriented x3 - Psychiatric Exam Psychiatric exam: Normal Affect, Normal Mood - Skin Skin Exam: Dry, Intact, Normal Color, Warm Assessment and Plan - Assessment and Plan (Free Text) Assessment: 72F POD#10 s/p open ventral hernia repair w/a kaelyn-mesh fluid collection Plan: FU IR drainage today Serial ab exams Further mgmt as per primary team Will ANA attending Lilian, PGY-1
[2017-07-22] MEDS: Levothyroxine 100 MCG TAB PO SCH (08:38)
[2017-07-22] MEDS: Sodium Chloride 0.9% 1,000 ML IV SCH ×3 (08:41→23:00)
--- NOTE | 2017-07-22 10:26 | CP.PCM.PN ---
Subjective - Date & Time of Evaluation Date of Evaluation: 07/22/17 Time of Evaluation: 08:00 - Subjective Subjective: Family Medicine 72 year old female PMHx NIDDM, HTN, NAFLD seen and evaluated at bedside this AM. Denies any acute events overnight. Patient reports continued diffuse lower abdominal pain, RLQ > LLQ. Patient states the pain in her RLQ feels like "gelatin that moves around her stomach" depending on the position of her body. Last BM was yesterday. Admits to mild nausea currently, denies any vomiting. Patient denies any fever currently. Patient aware she is to have a procedure today; NPO confirmed. No problems with urination. Denies headache, dizziness, vision changes, chest pain, palpitations, SOB, diarrhea. Objective - Vital Signs/Intake and Output Vital Signs (last 24 hours): Temp Pulse Resp BP Pulse Ox 98.1 F 76 20 104/68 93 L 07/22/17 08:29 07/22/17 08:29 07/22/17 08:29 07/22/17 08:29 07/22/17 08:29 - Medications Medications: Current Medications Acetaminophen (Tylenol 325mg Tab) 650 mg PO Q6 PRN PRN Reason: Fever >100.4 F Aspirin (Ecotrin) 81 mg PO DAILY [facility] Dextrose (Dextrose 50% Inj) 0 ml IVP STAT PRN; Protocol PRN Reason: Hypoglycemia Protocol Docusate Sodium (Colace) 100 mg PO BID PRN PRN Reason: Constipation Glucagon (Glucagen Diagnostic Kit) 0 mg IM STAT PRN; Protocol PRN Reason: Hypoglycemia Protocol Heparin Sodium (Porcine) (Heparin) 5,000 units SC Q8 [facility] PRN Reason: Protocol Last Admin: 07/22/17 08:38 Dose: Not Given Sodium Chloride (Sodium Chloride 0.9%) 1,000 mls @ 100 mls/hr IV .Q10H [facility] Last Admin: 07/22/17 08:41 Dose: 100 mls/hr Piperacillin Sod/Tazobactam (Sod 3.375 gm/ Sodium Chloride) 100 mls @ 100 mls/ hr IVPB Q6H [facility] PRN Reason: Protocol Last Admin: 07/22/17 02:34 Dose: 100 mls/hr Ibuprofen (Motrin Tab) 600 mg PO Q6 PRN PRN Reason: Pain, moderate (4-7) Insulin Human Regular (Humulin R) 0 units SC ACHS [facility] PRN Reason: Protocol Last Admin: 07/22/17 06:47 Dose: Not Given Levothyroxine Sodium (Synthroid) 100 mcg PO DAILY [facility] Last Admin: 07/22/17 08:38 Dose: Not Given Losartan Potassium (Cozaar) 25 mg PO DAILY [facility] Last Admin: 07/22/17 08:39 Dose: Not Given Metformin HCl (Glucophage) 500 mg PO BID [facility] Last Admin: 07/22/17 08:39 Dose: Not Given Ondansetron HCl (Zofran Inj) 4 mg IVP Q6 PRN PRN Reason: Nausea/Vomiting Oxycodone/Acetaminophen (Percocet 5/325 Mg Tab) 1 tab PO Q4 PRN PRN Reason: Pain, severe (8-10) Stop: 07/24/17 19:32 Last Admin: 07/22/17 00:45 Dose: 1 tab Saccharomyces Boulardii (Florastor) 250 mg PO BID [facility] - Labs Labs: 07/22/17 04:32 07/22/17 04:32 PT 12.0 Seconds (9.8-13.1) 07/21/17 15:15 INR 1.1 (0.9-1.2) 07/21/17 15:15 APTT 29.7 Seconds (25.6-37.1) 07/21/17 15:15 - Constitutional Appears: Well, No Acute Distress - Head Exam Head Exam: ATRAUMATIC, NORMAL INSPECTION, NORMOCEPHALIC - Eye Exam Eye Exam: EOMI, Normal appearance Pupil Exam: NORMAL ACCOMODATION, PERRL - ENT Exam ENT Exam: Mucous Membranes Dry - Neck Exam Neck Exam: Full ROM, Normal Inspection. absent: Tenderness - Respiratory Exam Respiratory Exam: Clear to Ausculation Bilateral, NORMAL BREATHING PATTERN. absent: Rales, Rhonchi, Wheezes - Cardiovascular Exam Cardiovascular Exam: REGULAR RHYTHM, +S1, +S2. absent: Gallop, Rubs, Murmur - GI/Abdominal Exam GI & Abdominal Exam: Distended, Guarding, Tenderness (lower abdomen, RLQ > LLQ) , Normal Bowel Sounds Additional comments: Surgical incision noted to left abdomen with ruslan intact and no wound dehiscence noted. No drainage noted. - Extremities Exam Extremities Exam: Normal Inspection. absent: Calf Tenderness, Joint Swelling - Neurological Exam Neurological Exam: Alert, Awake, Oriented x3 - Psychiatric Exam Psychiatric exam: Normal Affect, Normal Mood - Skin Skin Exam: Dry, Intact, Normal Color, Warm Assessment and Plan (1) Intra-abdominal abscess Status: Acute (2) Nonalcoholic fatty liver disease Status: Acute (3) Diabetes mellitus Status: Chronic (4) Hypertension Status: Chronic - Assessment and Plan (Free Text) Assessment: 72 year old female PMHx NIDDM, HTN, NAFLD admitted for intraabdominal abscess vs. seroma 10 days s/p recurrent ventral hernia repair (1) Intrabdominal Abscess vs Seroma -POD#10 hernia repair (07/12/17) -CT abd pelvis (07/21/17): Likely postoperative abscess in inferior nondependent intraperitoneal space in the lower abdomen measuring 14.1 cm greatest dimension with prominent intraperitoneal gas likely related. Emphysematous changes seen involving the left cathy-abdominal wall. -Afebrile currently -WBC 12.5 (trending downwards, yesterday 07/21/17 @ 16.6) -Repeat Lactate wnl 1.7 (yesterday 07/21/17 elevated @ 3.7) -F/U procalcitonin -Continue IVF NS 100 mls/hr -Continue IV abx: Vancomycin 1g q12h, Zosyn 3.375g q6h -ID consulted, f/u recs -Pain control: Ibuprofen 600mg PO q6h, Percocet 1 tab PO q4h -Zofran PRN -Surgery consulted, plan for IR drainage tomorrow; NPO for intervention today (2) NIDDM -Chronic, Controlled -Last HgbA1c 7.5(05/19/17) -C/W Metformin 500 mg BID s/p IR procedure -Low dose SSI/ACHS -Hypoglicemia protocol -Accuchecks ACHS (3) HTN -Chronic, controlled -Continue home med: Losartan 25mg PO QD (4) Hypothyroidism -stable, controlled -Continue home med: Synthroid 100mcg PO QD (5) NAFLD -Chronic -CT abd pelvis (07/21/17): Hepatic steatosis and questionble nodular surface; consider possible cirrhotic pattern -NAFLD fib score: -1.84(F0-F2)No fibrosis vs mild/mod fibrosis -ALT/AST elevation -Will continue to monitor (6) Prophylactic measures -Heparin 5000 units SQ q8h, held for IR procedure -SCDs -Florastor BID PO
--- NOTE | 2017-07-22 11:16 | RAD ---
HISTORY: Admission COMPARISON: CT scan of the abdomen pelvis performed earlier the same day. Chest radiograph dated 06/30/2017. FINDINGS: LUNGS: No active pulmonary disease. PLEURA: No significant pleural effusion identified, no pneumothorax apparent. CARDIOVASCULAR: Atherosclerotic aortic calcifications. Cardiomediastinal silhouette within normal limits. OSSEOUS STRUCTURES: No significant abnormalities. VISUALIZED UPPER ABDOMEN: Large volume intraperitoneal free air. OTHER FINDINGS: None. IMPRESSION: No active disease. Large volume intraperitoneal free air, seen earlier the same day on CT scan of the abdomen and pelvis.
--- NOTE | 2017-07-22 12:25 | CP.PCM.CON ---
History of Present Illness - History of Present Illness History of Present Illness: Infectious Disease Consultation Note- asked to see this patient for abdominal abscess post-surgery HPI- Patient is a 72 year old female with pmh of DM II, HTN, who recently had laporoscopic abdominal surgery for ventral hernia 9 days ago with mesh in place and was d/c home on 07/16/2017 and is now admitted with fever and abdominal pain and was found to have fluid collection around the mesh and is s/p IR drainage of the abscess today with drain in place. radha denies any discharge from around her ruslan but states she had fever and abdominal pain at home and that is why she returned to hospital. she denies any dysurea, denies any cough or sob. Review of Systems - Review of Systems Review of Systems: ROS- subjective fever at home, denies any SIMMS, denies any cough or sob, denies any chest pain, denies any nausea, c/o lower abdominal pain on admission, denie any diarrhea or dysurea Past Patient History - Infectious Disease Hx of Infectious Diseases: None - Tetanus Immunizations Tetanus Immunization: Unknown - Past Medical History & Family History Past Medical History?: Yes - Past Social History Smoking Status: Former Smoker Drugs: Denies Home Situation {Lives}: With Family - CARDIAC Hx Hypercholesterolemia: Yes Hx Hypertension: Yes - PULMONARY Hx Respiratory Disorders: No - NEUROLOGICAL Hx Neurological Disorder: No - HEENT Hx HEENT Problems: No - RENAL Hx Chronic Kidney Disease: No - ENDOCRINE/METABOLIC Hx Hypothyroidism: Yes - HEMATOLOGICAL/ONCOLOGICAL Hx Blood Disorders: No - INTEGUMENTARY Hx Dermatological Problems: No - MUSCULOSKELETAL/RHEUMATOLOGICAL Hx Arthritis: Yes - GASTROINTESTINAL Hx Gastrointestinal Disorders: Yes Hx Bowel Surgery: Yes Hx Fatty Liver Disease: Yes - GENITOURINARY/GYNECOLOGICAL Hx Genitourinary Disorders: No - PSYCHIATRIC Hx Depression: Yes - SURGICAL HISTORY Hx Surgeries: Yes (colon surgery 12/25/2014) Hx Herniorrhaphy: Yes (INCISONAL HERNIA) Other/Comment: Exploratory laparotomy with sigmoid colon resection on 12/25/14 - ANESTHESIA Hx Anesthesia: Yes Hx Anesthesia Reactions: No Hx Malignant Hyperthermia: No Meds Allergies/Adverse Reactions: Allergies Allergy/AdvReac Type Severity Reaction Status Date / Time No Known Allergies Allergy Verified 07/21/17 13:47 - Medications Medications: Current Medications Acetaminophen (Tylenol 325mg Tab) 650 mg PO Q6 PRN PRN Reason: Fever >100.4 F Aspirin (Ecotrin) 81 mg PO DAILY [facility] Dextrose (Dextrose 50% Inj) 0 ml IVP STAT PRN; Protocol PRN Reason: Hypoglycemia Protocol Docusate Sodium (Colace) 100 mg PO BID PRN PRN Reason: Constipation Glucagon (Glucagen Diagnostic Kit) 0 mg IM STAT PRN; Protocol PRN Reason: Hypoglycemia Protocol Heparin Sodium (Porcine) (Heparin) 5,000 units SC Q8 RADHA PRN Reason: Protocol Last Admin: 07/22/17 08:38 Dose: Not Given Sodium Chloride (Sodium Chloride 0.9%) 1,000 mls @ 100 mls/hr IV .Q10H [facility] Last Admin: 07/22/17 08:41 Dose: 100 mls/hr Piperacillin Sod/Tazobactam (Sod 3.375 gm/ Sodium Chloride) 100 mls @ 100 mls/ hr IVPB Q6H [facility] PRN Reason: Protocol Last Admin: 07/22/17 02:34 Dose: 100 mls/hr Vancomycin HCl 1 gm/ Sodium (Chloride) 250 mls @ 166.667 mls/hr IVPB Q12 [facility] PRN Reason: Protocol Ibuprofen (Motrin Tab) 600 mg PO Q6 PRN PRN Reason: Pain, moderate (4-7) Insulin Human Regular (Humulin R) 0 units SC ACHS [facility] PRN Reason: Protocol Last Admin: 07/22/17 06:47 Dose: Not Given Levothyroxine Sodium (Synthroid) 100 mcg PO DAILY [facility] Last Admin: 07/22/17 08:38 Dose: Not Given Losartan Potassium (Cozaar) 25 mg PO DAILY [facility] Last Admin: 07/22/17 08:39 Dose: Not Given Metformin HCl (Glucophage) 500 mg PO BID [facility] Last Admin: 07/22/17 08:39 Dose: Not Given Ondansetron HCl (Zofran Inj) 4 mg IVP Q6 PRN PRN Reason: Nausea/Vomiting Oxycodone/Acetaminophen (Percocet 5/325 Mg Tab) 1 tab PO Q4 PRN PRN Reason: Pain, severe (8-10) Stop: 07/24/17 19:32 Last Admin: 07/22/17 00:45 Dose: 1 tab Saccharomyces Boulardii (Florastor) 250 mg PO BID [facility] Physical Exam - Constitutional Appears: No Acute Distress - Head Exam Head Exam: ATRAUMATIC - Eye Exam Eye Exam: EOMI, PERRL - ENT Exam ENT Exam: Normal Oropharynx - Neck Exam Neck exam: Positive for: Full Rom - Respiratory Exam Respiratory Exam: Clear to Auscultation Bilateral, NORMAL BREATHING PATTERN - Cardiovascular Exam Cardiovascular Exam: RRR, +S1, +S2 - GI/Abdominal Exam GI & Abdominal Exam: Soft Additional comments: mid abdominal vertical surgical site with ruslan in place, no discharge seen but there is erythema around the ruslan. right pigtail catheter in place draining sanguinous fluid positive bowel sounds minimal tenderness only around surgical site no rebound, no guarding - Extremities Exam Extremities exam: Positive for: normal inspection - Neurological Exam Neurological exam: Alert, Oriented x3 Results - Vital Signs Recent Vital Signs: Last Vital Signs Temp 98.1 F 07/22/17 08:29 Pulse 76 07/22/17 08:29 Resp 20 07/22/17 08:29 BP 104/68 07/22/17 08:29 Pulse Ox 93 L 07/22/17 08:29 - Labs Result Diagrams: 07/22/17 04:32 07/22/17 04:32 Labs: Laboratory Results - last 24 hr 07/21/17 07/21/17 07/21/17 15:15 15:15 15:15 WBC 16.6 H D RBC 4.62 Hgb 13.6 Hct 41.3 MCV 89.3 MCH 29.3 MCHC 32.9 L RDW 14.6 H Plt Count 467 H D MPV 9.0 Neut % (Auto) 70.6 Lymph % (Auto) 19.1 L [place] % (Auto) 8.1 Eos % (Auto) 1.7 Baso % (Auto) 0.5 Neut # 11.7 H Lymph # 3.2 [place] # 1.3 H Eos # 0.3 Baso # 0.1 PT 12.0 INR 1.1 APTT 29.7 pO2 VBG pH VBG pCO2 VBG HCO3 VBG Total CO2 VBG O2 Sat (Calc) VBG Base Excess VBG Potassium Glucose Lactate FiO2 Crit Value Called To Crit Value Called By Crit Value Read Back Blood Gas Notified Time Sodium 139 Potassium 3.5 L Chloride 98 Carbon Dioxide 28 Anion Gap 17 BUN 18 H Creatinine 0.9 Est GFR ( Amer) > 60 Est GFR (Non-Af Amer) > 60 POC Glucose (mg/dL) Random Glucose 116 H Calcium 8.9 Total Bilirubin 0.7 AST 102 H D ALT 86 H D Alkaline Phosphatase 246 H D Total Protein 8.1 Albumin 3.7 Globulin 4.4 H Albumin/Globulin Ratio 0.8 L Venous Blood Potassium Urine Color Urine Clarity Urine pH Ur Specific [place] Urine Protein Urine Glucose (UA) Urine Ketones Urine Blood Urine Nitrate Urine Bilirubin Urine Urobilinogen Ur Leukocyte Esterase Urine RBC (Auto) Urine Microscopic WBC Ur Squamous Epith Cells Urine Bacteria 07/21/17 07/21/17 07/21/17 15:15 15:45 20:23 WBC RBC Hgb Hct MCV MCH MCHC RDW Plt Count MPV Neut % (Auto) Lymph % (Auto) [place] % (Auto) Eos % (Auto) Baso % (Auto) Neut # Lymph # [place] # Eos # Baso # PT INR APTT pO2 35 15 L VBG pH 7.35 7.44 H VBG pCO2 48 40 VBG HCO3 24.2 25.0 VBG Total CO2 28.0 28.4 H VBG O2 Sat (Calc) 70.7 H 27.1 L VBG Base Excess 0.3 2.8 H VBG Potassium 3.6 4.1 Glucose 112 H 127 H Lactate 3.7 H 1.7 FiO2 21.0 21.0 Crit Value Called To Andrew ponce Crit Value Called By 23 Crit Value Read Back Y Blood Gas Notified Time 1550 Sodium 135.0 135.0 Potassium Chloride 98.0 101.0 Carbon Dioxide Anion Gap BUN Creatinine Est GFR ( Amer) Est GFR (Non-Af Amer) POC Glucose (mg/dL) Random Glucose Calcium Total Bilirubin AST ALT Alkaline Phosphatase Total Protein Albumin Globulin Albumin/Globulin Ratio Venous Blood Potassium 3.6 4.1 Urine Color Yellow Urine Clarity Slighty-cloudy Urine pH 6.0 Ur Specific [place] 1.016 Urine Protein Negative Urine Glucose (UA) Neg Urine Ketones Negative Urine Blood Negative Urine Nitrate Negative Urine Bilirubin Negative Urine Urobilinogen 0.2-1.0 Ur Leukocyte Esterase Neg Urine RBC (Auto) 3 Urine Microscopic WBC 1 Ur Squamous Epith Cells 6 H Urine Bacteria Occ H 07/21/17 07/22/17 07/22/17 21:58 04:32 04:32 WBC 12.5 H RBC 3.95 Hgb 11.8 L Hct 35.8 MCV 90.5 MCH 29.9 MCHC 33.0 RDW 14.5 Plt Count 380 MPV 9.0 Neut % (Auto) 67.7 Lymph % (Auto) 19.6 L [place] % (Auto) 8.0 Eos % (Auto) 3.9 Baso % (Auto) 0.8 Neut # 8.4 H Lymph # 2.5 [place] # 1.0 H Eos # 0.5 Baso # 0.1 PT INR APTT pO2 VBG pH VBG pCO2 VBG HCO3 VBG Total CO2 VBG O2 Sat (Calc) VBG Base Excess VBG Potassium Glucose Lactate FiO2 Crit Value Called To Crit Value Called By Crit Value Read Back Blood Gas Notified Time Sodium 141 Potassium 4.3 Chloride 106 Carbon Dioxide 29 Anion Gap 10 BUN 15 Creatinine 1.0 Est GFR ( Amer) > 60 Est GFR (Non-Af Amer) 54 POC Glucose (mg/dL) 112 H Random Glucose 121 H Calcium 7.9 L Total Bilirubin 0.5 AST 79 H D ALT 72 H Alkaline Phosphatase 162 H D Total Protein 6.5 Albumin 2.8 L D Globulin 3.7 Albumin/Globulin Ratio 0.7 L Venous Blood Potassium Urine Color Urine Clarity Urine pH Ur Specific [place] Urine Protein Urine Glucose (UA) Urine Ketones Urine Blood Urine Nitrate Urine Bilirubin Urine Urobilinogen Ur Leukocyte Esterase Urine RBC (Auto) Urine Microscopic WBC Ur Squamous Epith Cells Urine Bacteria 07/22/17 07/22/17 05:42 11:14 WBC RBC Hgb Hct MCV MCH MCHC RDW Plt Count MPV Neut % (Auto) Lymph % (Auto) [place] % (Auto) Eos % (Auto) Baso % (Auto) Neut # Lymph # [place] # Eos # Baso # PT INR APTT pO2 VBG pH VBG pCO2 VBG HCO3 VBG Total CO2 VBG O2 Sat (Calc) VBG Base Excess VBG Potassium Glucose Lactate FiO2 Crit Value Called To Crit Value Called By Crit Value Read Back Blood Gas Notified Time Sodium Potassium Chloride Carbon Dioxide Anion Gap BUN Creatinine Est GFR ( Amer) Est GFR (Non-Af Amer) POC Glucose (mg/dL) 102 143 H Random Glucose Calcium Total Bilirubin AST ALT Alkaline Phosphatase Total Protein Albumin Globulin Albumin/Globulin Ratio Venous Blood Potassium Urine Color Urine Clarity Urine pH Ur Specific [place] Urine Protein Urine Glucose (UA) Urine Ketones Urine Blood Urine Nitrate Urine Bilirubin Urine Urobilinogen Ur Leukocyte Esterase Urine RBC (Auto) Urine Microscopic WBC Ur Squamous Epith Cells Urine Bacteria Laboratory Results - last 72 hr 07/21/17 07/21/17 07/21/17 15:15 15:15 15:15 WBC 16.6 H D RBC 4.62 Hgb 13.6 Hct 41.3 MCV 89.3 MCH 29.3 MCHC 32.9 L RDW 14.6 H Plt Count 467 H D MPV 9.0 Neut % (Auto) 70.6 Lymph % (Auto) 19.1 L [place] % (Auto) 8.1 Eos % (Auto) 1.7 Baso % (Auto) 0.5 Neut # 11.7 H Lymph # 3.2 [place] # 1.3 H Eos # 0.3 Baso # 0.1 PT 12.0 INR 1.1 APTT 29.7 pO2 VBG pH VBG pCO2 VBG HCO3 VBG Total CO2 VBG O2 Sat (Calc) VBG Base Excess VBG Potassium Glucose Lactate FiO2 Crit Value Called To Crit Value Called By Crit Value Read Back Blood Gas Notified Time Sodium 139 Potassium 3.5 L Chloride 98 Carbon Dioxide 28 Anion Gap 17 BUN 18 H Creatinine 0.9 Est GFR ( Amer) > 60 Est GFR (Non-Af Amer) > 60 POC Glucose (mg/dL) Random Glucose 116 H Calcium 8.9 Total Bilirubin 0.7 AST 102 H D ALT 86 H D Alkaline Phosphatase 246 H D Total Protein 8.1 Albumin 3.7 Globulin 4.4 H Albumin/Globulin Ratio 0.8 L Venous Blood Potassium Urine Color Urine Clarity Urine pH Ur Specific [place] Urine Protein Urine Glucose (UA) Urine Ketones Urine Blood Urine Nitrate Urine Bilirubin Urine Urobilinogen Ur Leukocyte Esterase Urine RBC (Auto) Urine Microscopic WBC Ur Squamous Epith Cells Urine Bacteria 07/21/17 07/21/17 07/21/17 15:15 15:45 20:23 WBC RBC Hgb Hct MCV MCH MCHC RDW Plt Count MPV Neut % (Auto) Lymph % (Auto) [place] % (Auto) Eos % (Auto) Baso % (Auto) Neut # Lymph # [place] # Eos # Baso # PT INR APTT pO2 35 15 L VBG pH 7.35 7.44 H VBG pCO2 48 40 VBG HCO3 24.2 25.0 VBG Total CO2 28.0 28.4 H VBG O2 Sat (Calc) 70.7 H 27.1 L VBG Base Excess 0.3 2.8 H VBG Potassium 3.6 4.1 Glucose 112 H 127 H Lactate 3.7 H 1.7 FiO2 21.0 21.0 Crit Value Called To Andrew ponce Crit Value Called By 23 Crit Value Read Back Y Blood Gas Notified Time 1550 Sodium 135.0 135.0 Potassium Chloride 98.0 101.0 Carbon Dioxide Anion Gap BUN Creatinine Est GFR ( Amer) Est GFR (Non-Af Amer) POC Glucose (mg/dL) Random Glucose Calcium Total Bilirubin AST ALT Alkaline Phosphatase Total Protein Albumin Globulin Albumin/Globulin Ratio Venous Blood Potassium 3.6 4.1 Urine Color Yellow Urine Clarity Slighty-cloudy Urine pH 6.0 Ur Specific [place] 1.016 Urine Protein Negative Urine Glucose (UA) Neg Urine Ketones Negative Urine Blood Negative Urine Nitrate Negative Urine Bilirubin Negative Urine Urobilinogen 0.2-1.0 Ur Leukocyte Esterase Neg Urine RBC (Auto) 3 Urine Microscopic WBC 1 Ur Squamous Epith Cells 6 H Urine Bacteria Occ H 07/21/17 07/22/17 07/22/17 21:58 04:32 04:32 WBC 12.5 H RBC 3.95 Hgb 11.8 L Hct 35.8 MCV 90.5 MCH 29.9 MCHC 33.0 RDW 14.5 Plt Count 380 MPV 9.0 Neut % (Auto) 67.7 Lymph % (Auto) 19.6 L [place] % (Auto) 8.0 Eos % (Auto) 3.9 Baso % (Auto) 0.8 Neut # 8.4 H Lymph # 2.5 [place] # 1.0 H Eos # 0.5 Baso # 0.1 PT INR APTT pO2 VBG pH VBG pCO2 VBG HCO3 VBG Total CO2 VBG O2 Sat (Calc) VBG Base Excess VBG Potassium Glucose Lactate FiO2 Crit Value Called To Crit Value Called By Crit Value Read Back Blood Gas Notified Time Sodium 141 Potassium 4.3 Chloride 106 Carbon Dioxide 29 Anion Gap 10 BUN 15 Creatinine 1.0 Est GFR ( Amer) > 60 Est GFR (Non-Af Amer) 54 POC Glucose (mg/dL) 112 H Random Glucose 121 H Calcium 7.9 L Total Bilirubin 0.5 AST 79 H D ALT 72 H Alkaline Phosphatase 162 H D Total Protein 6.5 Albumin 2.8 L D Globulin 3.7 Albumin/Globulin Ratio 0.7 L Venous Blood Potassium Urine Color Urine Clarity Urine pH Ur Specific [place] Urine Protein Urine Glucose (UA) Urine Ketones Urine Blood Urine Nitrate Urine Bilirubin Urine Urobilinogen Ur Leukocyte Esterase Urine RBC (Auto) Urine Microscopic WBC Ur Squamous Epith Cells Urine Bacteria 07/22/17 07/22/17 07/22/17 05:42 11:14 13:50 WBC RBC Hgb Hct MCV MCH MCHC RDW Plt Count MPV Neut % (Auto) Lymph % (Auto) [place] % (Auto) Eos % (Auto) Baso % (Auto) Neut # Lymph # [place] # Eos # Baso # PT INR APTT pO2 VBG pH VBG pCO2 VBG HCO3 VBG Total CO2 VBG O2 Sat (Calc) VBG Base Excess VBG Potassium Glucose Lactate FiO2 Crit Value Called To Crit Value Called By Crit Value Read Back Blood Gas Notified Time Sodium Potassium Chloride Carbon Dioxide Anion Gap BUN Creatinine Est GFR ( Amer) Est GFR (Non-Af Amer) POC Glucose (mg/dL) 102 143 H 121 H Random Glucose Calcium Total Bilirubin AST ALT Alkaline Phosphatase Total Protein Albumin Globulin Albumin/Globulin Ratio Venous Blood Potassium Urine Color Urine Clarity Urine pH Ur Specific [place] Urine Protein Urine Glucose (UA) Urine Ketones Urine Blood Urine Nitrate Urine Bilirubin Urine Urobilinogen Ur Leukocyte Esterase Urine RBC (Auto) Urine Microscopic WBC Ur Squamous Epith Cells Urine Bacteria 07/22/17 15:49 WBC RBC Hgb Hct MCV MCH MCHC RDW Plt Count MPV Neut % (Auto) Lymph % (Auto) [place] % (Auto) Eos % (Auto) Baso % (Auto) Neut # Lymph # [place] # Eos # Baso # PT INR APTT pO2 VBG pH VBG pCO2 VBG HCO3 VBG Total CO2 VBG O2 Sat (Calc) VBG Base Excess VBG Potassium Glucose Lactate FiO2 Crit Value Called To Crit Value Called By Crit Value Read Back Blood Gas Notified Time Sodium Potassium Chloride Carbon Dioxide Anion Gap BUN Creatinine Est GFR ( Amer) Est GFR (Non-Af Amer) POC Glucose (mg/dL) 110 Random Glucose Calcium Total Bilirubin AST ALT Alkaline Phosphatase Total Protein Albumin Globulin Albumin/Globulin Ratio Venous Blood Potassium Urine Color Urine Clarity Urine pH Ur Specific [place] Urine Protein Urine Glucose (UA) Urine Ketones Urine Blood Urine Nitrate Urine Bilirubin Urine Urobilinogen Ur Leukocyte Esterase Urine RBC (Auto) Urine Microscopic WBC Ur Squamous Epith Cells Urine Bacteria Microbiology 07/21/17 15:40 Abdomen Gram Stain - Final 07/21/17 15:40 Abdomen Wound Culture - Preliminary Gram Negative Vinay Microbiology 02/05/15 14:00 Abdomen Wound Culture - Final 02/05/15 14:00 Abdomen Gram Stain - Final Staphylococcus Epidermidis 01/20/15 22:30 Abdomen Wound Culture - Final 01/20/15 22:30 Abdomen Gram Stain - Final Staphylococcus Sp Coag Neg Accession No. : [id number] Patient Name / ID : MAYANK GUSTAFSON / [id number] Exam Date : 07/21/2017 16:24:36 ( Approved ) Study Comment : Sex / Age : F / [id number] Creator : Jared Skaggs MD Dictator : Jared Skaggs MD Insulation Cupola Operator : Radiotelegraphist : Jared Skaggs MD Approver2 : Report Date : 07/21/2017 18:05:20 My Comment : PROCEDURE: CT Abdomen and Pelvis with contrast HISTORY: Fever, abd pain, s/p hernia surgery COMPARISON: Abdomen pelvis CT with contrast 05/03/2017 TECHNIQUE: Following the intravenous administration of iodinated contrast material, a CT examination of the abdomen and pelvis performed from the domes of the diaphragms to the symphysis pubis with reformatted datasets provided not only axial but also sagittal and coronal planes. Oral contrast was not administered as per referring physician request. Contrast dose: Omnipaque 300, 95 cc Radiation dose: Total exam DLP = 1287.84 mGy-cm. This CT exam was performed using one or more of the following dose reduction techniques: Automated exposure control, adjustment of the mA and/or kV according to patient size, and/or use of iterative reconstruction technique. FINDINGS: LOWER THORAX: Cardiomegaly is again evident. Limited bilateral basilar dependent atelectasis is noted however there is no pleural or pericardial effusion identified or significant infiltrate. Definable again noted right base posteriorly. LIVER: Hepatic steatosis again appreciated. Borderline nodular surface of the liver may indicate cirrhosis. No hepatic mass or definite intrahepatic biliary dilatation identified. GALLBLADDER AND BILE DUCTS: The gallbladder is distended but otherwise appears unremarkable. No radiodense cholelithiasis. PANCREAS: Stable unremarkable appearing pancreas. No dilatation of the pancreatic duct. SPLEEN: Unremarkable. ADRENALS: Unremarkable. No mass. KIDNEYS AND URETERS: No definite obstructive uropathy bilaterally. Left parapelvic cysts again evident. No renal parenchymal mass grossly evident. VASCULATURE: Atherosclerotic but non aneurysmal abdominal aorta again evident. BOWEL: Jonnathan mariano is undergone prior bowel surgery in the past (2016) with mild-to- moderate fecal loading seen in the right hemicolon. The bowel is not appear obstructed including small bowel loops. There is marked free intrarenal gas identified however with a fluid collection identified at the anterior inferior abdomen intraperitoneal space measuring 14.1 x 5.2 x 14.1 cm (transverse by anteroposterior by superoinferior dimensions). Peripheral enhances related as well as trace internal gas in a pattern suggestive of an abscess. Emphysematous changes are also seen affecting the left side of the abdominal wall relatively diffusely including both dependent and lateral portions, potentially related to the abscess. The patient reportedly recently underwent abdominal hernia repair. Limited postoperative changes seen related to the anterior abdominal wall inferior to the incision site. The amount of free intraperitoneal gas. Shotty context with surgery performed reportedly at least 9 days previously 2017. This gas may be a function of the abscess. Surgical consultation is advised. APPENDIX: Not clearly identified. Further clinical correlation advised. PERITONEUM: Please see bowel section above. LYMPH NODES: Unremarkable. No enlarged lymph nodes. BLADDER: Unremarkable. REPRODUCTIVE: Unremarkable. BONES: No acute fracture. OTHER FINDINGS: None. IMPRESSION: A likely postoperative abscess identified in the inferior nondependent intraperitoneal space in the lower abdomen measuring 14.1 cm greatest dimension with prominent intraperitoneal gas likely related. Emphysematous changes seen involving the left cathy abdominal wall as described above, also likely related. Surgical consultation advised. Hepatic steatosis and questionable nodular surface the liver. Consider possible cirrhotic pattern. Postoperative changes are noted along the inferior anterior abdominal wall. Findings discussed with Dr. Calvillo 07/21/2017 5:50 p.m. with written down and read back verification. Assessment & Plan (1) Intraperitoneal abscess Status: Acute (2) Post op infection Status: Acute (3) Diabetes mellitus Status: Chronic Priority: Medium (4) Leukocytosis Status: Acute - Assessment and Plan (Free Text) Assessment: A/P- 72 year old female with DM Ii, HTN, s/p ventral hernia repair admitted with intraperitoneal abscess . s/p IR drainage of the abscess and drain in place today. afebrile now. leukocytosis trending down wound cx- prelim GNR plan- check 2 blood cx as well. await ID and sensitivity of the wound cx. for now agree with IV zosyn and vanco pending further results and ID of the GNR in wound cx. keep vanco trough <15. monitor wbc and temps. drain management as per surgical team. Thank you for allowing me to take part in the care of this patient. will f/u while inpatient.
[2017-07-22] MEDS: Saccharomyces Boulardi 250 mg Cap PO SCH ×2 (12:35→16:57)
[2017-07-22] MEDS ORDERED: Midazolam 2 MG/2 ML VIAL ONE (12:51)
[2017-07-22] MEDS ORDERED: Lidocaine 1% Inj (20ml) ONE (13:02)
--- NOTE | 2017-07-22 13:14 | PCM.SURG1 ---
Surgeon's Initial Post Op Note - Surgeon's Notes Surgeon: Trever Lee MD Ham Passer: NONE Type of Anesthesia: IV Sedation Pre-Operative Diagnosis: Abdominal abscess Operative Findings: US showed mid abdominal collection deep to the surgical ruslan. Post-Operative Diagnosis: Abdominal abscess Operation Performed: US guided placement of a 10 fr pigtail drainage catheter within the abscess Specimen/Specimens Removed: 20 cc of slight bloody drainage. Estimated Blood Loss: EBL {In ML}: 2 Blood Products Given: N/A Drains Used: Manuel Avelar Post-Op Condition: Fair Date of Surgery/Procedure: 07/22/17 Time of Surgery/Procedure: 13:10
--- NOTE | 2017-07-22 18:07 | CARD ---
APPROVED REPORT EKG Measurement Heart [id number] CT [id number] <Conclusion> Normal sinus rhythm Normal ECG
[2017-07-23] MEDS: Piperacillin/Tazobact 3.375 GM in Sodium Chloride 0.9% 100 ML IVPB SCH ×4 (02:44→21:52)
[2017-07-23] MEDS: Insulin Regular 100 units/ml SC SCH ×4 (06:34→21:33)
--- NOTE | 2017-07-23 07:33 | CP.PCM.PN ---
Subjective - Date & Time of Evaluation Date of Evaluation: 07/23/17 Time of Evaluation: 06:20 - Subjective Subjective: General surgery progress note for Dr. Indiana Quintana, PGY-1 Pt S & E at bedside. Pt stable overnight, states ab pain is much improved. Reports some nausea, fevers/chills, but is tolerating diet. Had Ab drain placed by IR yesterday. Objective - Vital Signs/Intake and Output Vital Signs (last 24 hours): Temp Pulse Resp BP Pulse Ox 98.7 F 76 18 106/68 96 07/23/17 05:36 07/23/17 05:36 07/23/17 05:36 07/23/17 05:36 07/23/17 05:36 Intake and Output: 07/23/17 07/23/17 06:59 18:59 Intake Total 2830 Output Total 790 Balance 2040 - Medications Medications: Current Medications Acetaminophen (Tylenol 325mg Tab) 650 mg PO Q6 PRN PRN Reason: Fever >100.4 F Aspirin (Ecotrin) 81 mg PO DAILY [facility] Dextrose (Dextrose 50% Inj) 0 ml IVP STAT PRN; Protocol PRN Reason: Hypoglycemia Protocol Docusate Sodium (Colace) 100 mg PO BID PRN PRN Reason: Constipation Glucagon (Glucagen Diagnostic Kit) 0 mg IM STAT PRN; Protocol PRN Reason: Hypoglycemia Protocol Heparin Sodium (Porcine) (Heparin) 5,000 units SC Q8 [facility] PRN Reason: Protocol Last Admin: 07/23/17 00:03 Dose: Not Given Sodium Chloride (Sodium Chloride 0.9%) 1,000 mls @ 100 mls/hr IV .Q10H [facility] Last Admin: 07/22/17 23:00 Dose: 100 mls/hr Piperacillin Sod/Tazobactam (Sod 3.375 gm/ Sodium Chloride) 100 mls @ 100 mls/ hr IVPB Q6H [facility] PRN Reason: Protocol Last Admin: 07/23/17 02:44 Dose: 100 mls/hr Vancomycin HCl 1 gm/ Sodium (Chloride) 250 mls @ 166.667 mls/hr IVPB Q12@0500, 1700 [facility] PRN Reason: Protocol Last Admin: 07/23/17 04:07 Dose: 166.667 mls/hr Ibuprofen (Motrin Tab) 600 mg PO Q6 PRN PRN Reason: Pain, moderate (4-7) Insulin Human Regular (Humulin R) 0 units SC ACHS [facility] PRN Reason: Protocol Last Admin: 07/23/17 06:34 Dose: Not Given Levothyroxine Sodium (Synthroid) 100 mcg PO DAILY [facility] Last Admin: 07/22/17 08:38 Dose: Not Given Losartan Potassium (Cozaar) 25 mg PO DAILY [facility] Last Admin: 07/22/17 08:39 Dose: Not Given Metformin HCl (Glucophage) 500 mg PO BID [facility] Last Admin: 07/22/17 16:58 Dose: 500 mg Ondansetron HCl (Zofran Inj) 4 mg IVP Q6 PRN PRN Reason: Nausea/Vomiting Oxycodone/Acetaminophen (Percocet 5/325 Mg Tab) 1 tab PO Q4 PRN PRN Reason: Pain, severe (8-10) Stop: 07/24/17 19:32 Last Admin: 07/22/17 21:15 Dose: 1 tab Saccharomyces Boulardii (Florastor) 250 mg PO BID [facility] Last Admin: 07/22/17 16:57 Dose: 250 mg - Labs Labs: 07/22/17 04:32 07/22/17 04:32 PT 12.0 Seconds (9.8-13.1) 07/21/17 15:15 INR 1.1 (0.9-1.2) 07/21/17 15:15 APTT 29.7 Seconds (25.6-37.1) 07/21/17 15:15 - Constitutional Appears: Non-toxic, No Acute Distress - Head Exam Head Exam: ATRAUMATIC, NORMAL INSPECTION, NORMOCEPHALIC - Eye Exam Eye Exam: EOMI, Normal appearance - ENT Exam ENT Exam: Mucous Membranes Moist, Normal Exam - Neck Exam Neck Exam: Full ROM, Normal Inspection - Respiratory Exam Respiratory Exam: NORMAL BREATHING PATTERN - Cardiovascular Exam Cardiovascular Exam: REGULAR RHYTHM, +S1, +S2 - GI/Abdominal Exam GI & Abdominal Exam: Soft, Tenderness. absent: Distended (morbidly obese), Firm , Guarding, Rigid Additional comments: RLQ with IR drain in place with scant serous output Midline incision site with ruslan in place, well approximated, no drainage or erythema - Extremities Exam Extremities Exam: Normal Inspection - Neurological Exam Neurological Exam: Alert, Awake, CN II-XII Intact, Oriented x3 - Psychiatric Exam Psychiatric exam: Normal Affect, Normal Mood - Skin Skin Exam: Dry, Intact, Normal Color, Warm Assessment and Plan - Assessment and Plan (Free Text) Assessment: 72F POD#11 s/p open ventral hernia repair w/a kaelyn-mesh fluid collection s/p IR drain placement POD#1 Plan: FU wound cx pain mgmt Abx Further mgmt as per primary team ANA attending Lilian, PGY-1
[2017-07-23 07:41] LABS: HEMOGLOBIN 11.9 g/dL (12.0-16.0); MEAN CORPUSCULAR HEMOGLOBIN 29.8 pg (27.0-31.0); MEAN CORPUSCULAR HGB CONC 33.5 g/dL (33.0-37.0); RBC 3.99 Mil/uL (3.80-5.20); RED CELL DISTRIBUTION WIDTH 14.4 % (11.5-14.5); WHITE BLOOD COUNT 12.6 K/uL (4.8-10.8)
--- NOTE | 2017-07-23 08:40 | CP.PCM.PN ---
Subjective - Date & Time of Evaluation Date of Evaluation: 07/23/17 Time of Evaluation: 07:45 - Subjective Subjective: 72F s/p IR drainage for post-op intra-abdominal fluid collection. Patient tolerating diet, voiding, abd pain improved, and denies fever/chills/SOB /chest pain. Last BM Tuesday but passing flatus. Objective - Vital Signs/Intake and Output Vital Signs (last 24 hours): Temp Pulse Resp BP Pulse Ox 36.7 C 74 20 106/68 96 07/23/17 08:00 07/23/17 08:00 07/23/17 08:00 07/23/17 08:00 07/23/17 08:00 Intake and Output: 07/23/17 07/23/17 06:59 18:59 Intake Total 2830 Output Total 790 Balance 2040 - Medications Medications: Current Medications Acetaminophen (Tylenol 325mg Tab) 650 mg PO Q6 PRN PRN Reason: Fever >100.4 F Aspirin (Ecotrin) 81 mg PO DAILY [facility] Dextrose (Dextrose 50% Inj) 0 ml IVP STAT PRN; Protocol PRN Reason: Hypoglycemia Protocol Docusate Sodium (Colace) 100 mg PO BID PRN PRN Reason: Constipation Glucagon (Glucagen Diagnostic Kit) 0 mg IM STAT PRN; Protocol PRN Reason: Hypoglycemia Protocol Heparin Sodium (Porcine) (Heparin) 5,000 units SC Q8 [facility] PRN Reason: Protocol Last Admin: 07/23/17 00:03 Dose: Not Given Sodium Chloride (Sodium Chloride 0.9%) 1,000 mls @ 100 mls/hr IV .Q10H [facility] Last Admin: 07/22/17 23:00 Dose: 100 mls/hr Piperacillin Sod/Tazobactam (Sod 3.375 gm/ Sodium Chloride) 100 mls @ 100 mls/ hr IVPB Q6H [facility] PRN Reason: Protocol Last Admin: 07/23/17 02:44 Dose: 100 mls/hr Vancomycin HCl 1 gm/ Sodium (Chloride) 250 mls @ 166.667 mls/hr IVPB Q12@0500, 1700 [facility] PRN Reason: Protocol Last Admin: 07/23/17 04:07 Dose: 166.667 mls/hr Ibuprofen (Motrin Tab) 600 mg PO Q6 PRN PRN Reason: Pain, moderate (4-7) Insulin Human Regular (Humulin R) 0 units SC ACHS [facility] PRN Reason: Protocol Last Admin: 07/23/17 06:34 Dose: Not Given Levothyroxine Sodium (Synthroid) 100 mcg PO DAILY [facility] Last Admin: 07/22/17 08:38 Dose: Not Given Losartan Potassium (Cozaar) 25 mg PO DAILY [facility] Last Admin: 07/22/17 08:39 Dose: Not Given Metformin HCl (Glucophage) 500 mg PO BID [facility] Last Admin: 07/22/17 16:58 Dose: 500 mg Ondansetron HCl (Zofran Inj) 4 mg IVP Q6 PRN PRN Reason: Nausea/Vomiting Oxycodone/Acetaminophen (Percocet 5/325 Mg Tab) 1 tab PO Q4 PRN PRN Reason: Pain, severe (8-10) Stop: 07/24/17 19:32 Last Admin: 07/22/17 21:15 Dose: 1 tab Saccharomyces Boulardii (Florastor) 250 mg PO BID [facility] Last Admin: 07/22/17 16:57 Dose: 250 mg - Labs Labs: 07/23/17 06:11 07/22/17 04:32 PT 12.0 Seconds (9.8-13.1) 07/21/17 15:15 INR 1.1 (0.9-1.2) 07/21/17 15:15 APTT 29.7 Seconds (25.6-37.1) 07/21/17 15:15 - Constitutional Appears: Well, Non-toxic, No Acute Distress - Head Exam Head Exam: ATRAUMATIC, NORMAL INSPECTION - Eye Exam Eye Exam: EOMI, Normal appearance - ENT Exam ENT Exam: Mucous Membranes Moist, Normal Exam - Neck Exam Neck Exam: Full ROM. absent: Lymphadenopathy - Respiratory Exam Respiratory Exam: Clear to Ausculation Bilateral, NORMAL BREATHING PATTERN. absent: Rales, Rhonchi, Wheezes - Cardiovascular Exam Cardiovascular Exam: REGULAR RHYTHM, +S1, +S2 - GI/Abdominal Exam GI & Abdominal Exam: Soft, Normal Bowel Sounds (surgical site well-approximated , ruslan in place, mild erythema/warmth, drain(s) patent with scant serosanguinous. Documented 120ml total.). absent: Tenderness - Extremities Exam Extremities Exam: Full ROM, Normal Capillary Refill. absent: Pedal Edema - Neurological Exam Neurological Exam: Alert, Awake, Oriented x3 - Psychiatric Exam Psychiatric exam: Normal Affect, Normal Mood - Skin Skin Exam: Normal Color, Warm Assessment and Plan - Assessment and Plan (Free Text) Assessment: 72F POD #11 s/p repeat hernia repair and found to have intra-abdominal collection drained by IR for likely seroma with drain left in place. Wound culture is growing pseudomonas and fluid is negative for organisms. Pt is AVSS, tolerating diet, and ambulating. No need for Telemetry will transfer to Med/Surg , floor notified. - Wound/drainage management as per Surgical Team (Please provide follow up instructions for discharge) - Bowel Regimen in place - ID Consult Dr Whatley appreciated (f/u all cultures) - Wound Cx: Pseudomonas sensitive to Zosyn, Vancomycin discontinued - Collection Fluid: Negative for organisms - BCx x2: no growth thus far - UCx: Lactobacillus- awaiting ID recommendations as normal renetta, however ?? atypical dense growth - NIDDM, HTN, NAFLD: c/w on current medication regimen - LFT elevation: likely NAFLD and bystander effect - d/w Dr Elliott
[2017-07-23 08:43] LABS: ALB/GLOB RATIO 0.7 (1.0-2.1); ALBUMIN 2.8 g/dL (3.5-5.0); ALT/SGPT 68 U/L (9-52); AST/SGOT 61 U/L (14-36); BLOOD UREA NITROGEN 17 mg/dl (7-17); CALCIUM 7.8 mg/dL (8.4-10.2); GFR AFRICAN-AMERICAN > 60; GFR NON-AFRICAN AMERICAN 54
[2017-07-23] MEDS: Saccharomyces Boulardi 250 mg Cap PO SCH ×2 (08:46→16:20)
[2017-07-23] MEDS: Levothyroxine 100 MCG TAB PO SCH (08:47)
--- NOTE | 2017-07-23 12:55 | CP.PCM.PN ---
Subjective - Date & Time of Evaluation Date of Evaluation: 07/23/17 Time of Evaluation: 12:55 - Subjective Subjective: ID Note- Pt. seen and examined today. Pt. denies any fever or chills. she is eating her lunch. no new events overnight. Objective - Vital Signs/Intake and Output Vital Signs (last 24 hours): Temp Pulse Resp BP Pulse Ox 98.2 F 68 20 116/72 97 07/23/17 12:24 07/23/17 12:24 07/23/17 12:24 07/23/17 12:24 07/23/17 12:24 Intake and Output: 07/23/17 07/23/17 06:59 18:59 Intake Total 2830 Output Total 790 Balance 0 - Medications Medications: Current Medications Acetaminophen (Tylenol 325mg Tab) 650 mg PO Q6 PRN PRN Reason: Fever >100.4 F Aspirin (Ecotrin) 81 mg PO DAILY [facility] Dextrose (Dextrose 50% Inj) 0 ml IVP STAT PRN; Protocol PRN Reason: Hypoglycemia Protocol Docusate Sodium (Colace) 100 mg PO BID [facility] Glucagon (Glucagen Diagnostic Kit) 0 mg IM STAT PRN; Protocol PRN Reason: Hypoglycemia Protocol Heparin Sodium (Porcine) (Heparin) 5,000 units SC Q8 [facility] PRN Reason: Protocol Last Admin: 07/23/17 08:53 Dose: Not Given Piperacillin Sod/Tazobactam (Sod 3.375 gm/ Sodium Chloride) 100 mls @ 100 mls/ hr IVPB Q6H [facility] PRN Reason: Protocol Last Admin: 07/23/17 10:10 Dose: 100 mls/hr Ibuprofen (Motrin Tab) 600 mg PO Q6 PRN PRN Reason: Pain, moderate (4-7) Insulin Human Regular (Humulin R) 0 units SC ACHS [facility] PRN Reason: Protocol Last Admin: 07/23/17 12:32 Dose: Not Given Levothyroxine Sodium (Synthroid) 100 mcg PO DAILY [facility] Last Admin: 07/23/17 08:47 Dose: 100 mcg Losartan Potassium (Cozaar) 25 mg PO DAILY [facility] Last Admin: 07/23/17 08:46 Dose: 25 mg Metformin HCl (Glucophage) 500 mg PO BID [facility] Last Admin: 07/23/17 08:46 Dose: 500 mg Ondansetron HCl (Zofran Inj) 4 mg IVP Q6 PRN PRN Reason: Nausea/Vomiting Oxycodone/Acetaminophen (Percocet 5/325 Mg Tab) 1 tab PO Q4 PRN PRN Reason: Pain, severe (8-10) Stop: 07/24/17 19:32 Last Admin: 07/22/17 21:15 Dose: 1 tab Saccharomyces Boulardii (Florastor) 250 mg PO BID [facility] Last Admin: 07/23/17 08:46 Dose: 250 mg - Labs Labs: - Additional Findings Additional findings: - Constitutional Appears: No Acute Distress - Head Exam Head Exam: ATRAUMATIC - Eye Exam Eye Exam: EOMI, PERRL - ENT Exam ENT Exam: Normal Oropharynx - Neck Exam Neck exam: Positive for: Full Rom - Respiratory Exam Respiratory Exam: Clear to Auscultation Bilateral, NORMAL BREATHING PATTERN - Cardiovascular Exam Cardiovascular Exam: RRR, +S1, +S2 - GI/Abdominal Exam GI & Abdominal Exam: Soft Additional comments: mid abdominal vertical surgical site with ruslan in place, no discharge seen but there is erythema around the ruslan,howver, less than yesterday right pigtail catheter in place draining sanguinous fluid positive bowel sounds minimal tenderness only around surgical site no rebound, no guarding - Extremities Exam Extremities exam: left hadn IVL site edematous and tender ( infiltarted IVL) - Neurological Exam Neurological exam: Alert, Oriented x 3 Laboratory Results - last 72 hr 07/21/17 07/21/17 07/21/17 15:15 15:15 15:15 WBC 16.6 H D RBC 4.62 Hgb 13.6 Hct 41.3 MCV 89.3 MCH 29.3 MCHC 32.9 L RDW 14.6 H Plt Count 467 H D MPV 9.0 Neut % (Auto) 70.6 Lymph % (Auto) 19.1 L [place] % (Auto) 8.1 Eos % (Auto) 1.7 Baso % (Auto) 0.5 Neut # 11.7 H Lymph # 3.2 [place] # 1.3 H Eos # 0.3 Baso # 0.1 PT 12.0 INR 1.1 APTT 29.7 pO2 VBG pH VBG pCO2 VBG HCO3 VBG Total CO2 VBG O2 Sat (Calc) VBG Base Excess VBG Potassium Glucose Lactate FiO2 Crit Value Called To Crit Value Called By Crit Value Read Back Blood Gas Notified Time Sodium 139 Potassium 3.5 L Chloride 98 Carbon Dioxide 28 Anion Gap 17 BUN 18 H Creatinine 0.9 Est GFR ( Amer) > 60 Est GFR (Non-Af Amer) > 60 POC Glucose (mg/dL) Random Glucose 116 H Calcium 8.9 Total Bilirubin 0.7 AST 102 H D ALT 86 H D Alkaline Phosphatase 246 H D Total Protein 8.1 Albumin 3.7 Globulin 4.4 H Albumin/Globulin Ratio 0.8 L Procalcitonin Venous Blood Potassium Urine Color Urine Clarity Urine pH Ur Specific [place] Urine Protein Urine Glucose (UA) Urine Ketones Urine Blood Urine Nitrate Urine Bilirubin Urine Urobilinogen Ur Leukocyte Esterase Urine RBC (Auto) Urine Microscopic WBC Ur Squamous Epith Cells Urine Bacteria 07/21/17 07/21/17 07/21/17 15:15 15:45 20:23 WBC RBC Hgb Hct MCV MCH MCHC RDW Plt Count MPV Neut % (Auto) Lymph % (Auto) [place] % (Auto) Eos % (Auto) Baso % (Auto) Neut # Lymph # [place] # Eos # Baso # PT INR APTT pO2 35 15 L VBG pH 7.35 7.44 H VBG pCO2 48 40 VBG HCO3 24.2 25.0 VBG Total CO2 28.0 28.4 H VBG O2 Sat (Calc) 70.7 H 27.1 L VBG Base Excess 0.3 2.8 H VBG Potassium 3.6 4.1 Glucose 112 H 127 H Lactate 3.7 H 1.7 FiO2 21.0 21.0 Crit Value Called To Andrew ponce Crit Value Called By 23 Crit Value Read Back Y Blood Gas Notified Time 1550 Sodium 135.0 135.0 Potassium Chloride 98.0 101.0 Carbon Dioxide Anion Gap BUN Creatinine Est GFR ( Amer) Est GFR (Non-Af Amer) POC Glucose (mg/dL) Random Glucose Calcium Total Bilirubin AST ALT Alkaline Phosphatase Total Protein Albumin Globulin Albumin/Globulin Ratio Procalcitonin Venous Blood Potassium 3.6 4.1 Urine Color Yellow Urine Clarity Slighty-cloudy Urine pH 6.0 Ur Specific [place] 1.016 Urine Protein Negative Urine Glucose (UA) Neg Urine Ketones Negative Urine Blood Negative Urine Nitrate Negative Urine Bilirubin Negative Urine Urobilinogen 0.2-1.0 Ur Leukocyte Esterase Neg Urine RBC (Auto) 3 Urine Microscopic WBC 1 Ur Squamous Epith Cells 6 H Urine Bacteria Occ H 07/21/17 07/22/17 07/22/17 21:58 04:32 04:32 WBC 12.5 H RBC 3.95 Hgb 11.8 L Hct 35.8 MCV 90.5 MCH 29.9 MCHC 33.0 RDW 14.5 Plt Count 380 MPV 9.0 Neut % (Auto) 67.7 Lymph % (Auto) 19.6 L [place] % (Auto) 8.0 Eos % (Auto) 3.9 Baso % (Auto) 0.8 Neut # 8.4 H Lymph # 2.5 [place] # 1.0 H Eos # 0.5 Baso # 0.1 PT INR APTT pO2 VBG pH VBG pCO2 VBG HCO3 VBG Total CO2 VBG O2 Sat (Calc) VBG Base Excess VBG Potassium Glucose Lactate FiO2 Crit Value Called To Crit Value Called By Crit Value Read Back Blood Gas Notified Time Sodium 141 Potassium 4.3 Chloride 106 Carbon Dioxide 29 Anion Gap 10 BUN 15 Creatinine 1.0 Est GFR ( Amer) > 60 Est GFR (Non-Af Amer) 54 POC Glucose (mg/dL) 112 H Random Glucose 121 H Calcium 7.9 L Total Bilirubin 0.5 AST 79 H D ALT 72 H Alkaline Phosphatase 162 H D Total Protein 6.5 Albumin 2.8 L D Globulin 3.7 Albumin/Globulin Ratio 0.7 L Procalcitonin Venous Blood Potassium Urine Color Urine Clarity Urine pH Ur Specific [place] Urine Protein Urine Glucose (UA) Urine Ketones Urine Blood Urine Nitrate Urine Bilirubin Urine Urobilinogen Ur Leukocyte Esterase Urine RBC (Auto) Urine Microscopic WBC Ur Squamous Epith Cells Urine Bacteria 07/22/17 07/22/17 07/22/17 04:32 05:42 11:14 WBC RBC Hgb Hct MCV MCH MCHC RDW Plt Count MPV Neut % (Auto) Lymph % (Auto) [place] % (Auto) Eos % (Auto) Baso % (Auto) Neut # Lymph # [place] # Eos # Baso # PT INR APTT pO2 VBG pH VBG pCO2 VBG HCO3 VBG Total CO2 VBG O2 Sat (Calc) VBG Base Excess VBG Potassium Glucose Lactate FiO2 Crit Value Called To Crit Value Called By Crit Value Read Back Blood Gas Notified Time Sodium Potassium Chloride Carbon Dioxide Anion Gap BUN Creatinine Est GFR ( Amer) Est GFR (Non-Af Amer) POC Glucose (mg/dL) 102 143 H Random Glucose Calcium Total Bilirubin AST ALT Alkaline Phosphatase Total Protein Albumin Globulin Albumin/Globulin Ratio Procalcitonin 0.16 L Venous Blood Potassium Urine Color Urine Clarity Urine pH Ur Specific [place] Urine Protein Urine Glucose (UA) Urine Ketones Urine Blood Urine Nitrate Urine Bilirubin Urine Urobilinogen Ur Leukocyte Esterase Urine RBC (Auto) Urine Microscopic WBC Ur Squamous Epith Cells Urine Bacteria 07/22/17 07/22/17 07/22/17 13:50 15:49 21:02 WBC RBC Hgb Hct MCV MCH MCHC RDW Plt Count MPV Neut % (Auto) Lymph % (Auto) [place] % (Auto) Eos % (Auto) Baso % (Auto) Neut # Lymph # [place] # Eos # Baso # PT INR APTT pO2 VBG pH VBG pCO2 VBG HCO3 VBG Total CO2 VBG O2 Sat (Calc) VBG Base Excess VBG Potassium Glucose Lactate FiO2 Crit Value Called To Crit Value Called By Crit Value Read Back Blood Gas Notified Time Sodium Potassium Chloride Carbon Dioxide Anion Gap BUN Creatinine Est GFR ( Amer) Est GFR (Non-Af Amer) POC Glucose (mg/dL) 121 H 110 115 H Random Glucose Calcium Total Bilirubin AST ALT Alkaline Phosphatase Total Protein Albumin Globulin Albumin/Globulin Ratio Procalcitonin Venous Blood Potassium Urine Color Urine Clarity Urine pH Ur Specific [place] Urine Protein Urine Glucose (UA) Urine Ketones Urine Blood Urine Nitrate Urine Bilirubin Urine Urobilinogen Ur Leukocyte Esterase Urine RBC (Auto) Urine Microscopic WBC Ur Squamous Epith Cells Urine Bacteria 07/23/17 07/23/17 07/23/17 05:08 06:11 06:11 WBC 12.6 H RBC 3.99 Hgb 11.9 L Hct 35.5 MCV 89.0 MCH 29.8 MCHC 33.5 RDW 14.4 Plt Count 384 MPV Neut % (Auto) Lymph % (Auto) [place] % (Auto) Eos % (Auto) Baso % (Auto) Neut # Lymph # [place] # Eos # Baso # PT INR APTT pO2 VBG pH VBG pCO2 VBG HCO3 VBG Total CO2 VBG O2 Sat (Calc) VBG Base Excess VBG Potassium Glucose Lactate FiO2 Crit Value Called To Crit Value Called By Crit Value Read Back Blood Gas Notified Time Sodium 140 Potassium 4.2 Chloride 104 Carbon Dioxide 26 Anion Gap 14 BUN 17 Creatinine 1.0 Est GFR ( Amer) > 60 Est GFR (Non-Af Amer) 54 POC Glucose (mg/dL) 112 H Random Glucose 127 H Calcium 7.8 L Total Bilirubin 0.6 AST 61 H D ALT 68 H Alkaline Phosphatase 163 H Total Protein 6.7 Albumin 2.8 L Globulin 3.8 Albumin/Globulin Ratio 0.7 L Procalcitonin Venous Blood Potassium Urine Color Urine Clarity Urine pH Ur Specific [place] Urine Protein Urine Glucose (UA) Urine Ketones Urine Blood Urine Nitrate Urine Bilirubin Urine Urobilinogen Ur Leukocyte Esterase Urine RBC (Auto) Urine Microscopic WBC Ur Squamous Epith Cells Urine Bacteria 07/23/17 11:18 WBC RBC Hgb Hct MCV MCH MCHC RDW Plt Count MPV Neut % (Auto) Lymph % (Auto) [place] % (Auto) Eos % (Auto) Baso % (Auto) Neut # Lymph # [place] # Eos # Baso # PT INR APTT pO2 VBG pH VBG pCO2 VBG HCO3 VBG Total CO2 VBG O2 Sat (Calc) VBG Base Excess VBG Potassium Glucose Lactate FiO2 Crit Value Called To Crit Value Called By Crit Value Read Back Blood Gas Notified Time Sodium Potassium Chloride Carbon Dioxide Anion Gap BUN Creatinine Est GFR ( Amer) Est GFR (Non-Af Amer) POC Glucose (mg/dL) 112 H Random Glucose Calcium Total Bilirubin AST ALT Alkaline Phosphatase Total Protein Albumin Globulin Albumin/Globulin Ratio Procalcitonin Venous Blood Potassium Urine Color Urine Clarity Urine pH Ur Specific [place] Urine Protein Urine Glucose (UA) Urine Ketones Urine Blood Urine Nitrate Urine Bilirubin Urine Urobilinogen Ur Leukocyte Esterase Urine RBC (Auto) Urine Microscopic WBC Ur Squamous Epith Cells Urine Bacteria Microbiology 07/21/17 15:40 Abdomen Gram Stain - Final 07/21/17 15:40 Abdomen Wound Culture - Final Pseudomonas Aeruginosa 07/21/17 15:15 Urine Urine Culture - Final Lactobacillus Species 07/22/17 15:52 Abdominal Fluid Gram Stain - Final 07/21/17 18:00 Blood-Venous Blood Culture - Preliminary NO GROWTH AFTER 24 HOURS 07/21/17 18:40 Blood-Venous Blood Culture - Preliminary NO GROWTH AFTER 24 HOURS Assessment and Plan (1) Intraperitoneal abscess Status: Acute (2) Post op infection Status: Acute (3) Diabetes mellitus Status: Chronic (4) Leukocytosis Status: Acute - Assessment and Plan (Free Text) Assessment: A/P- 72 year old female with DM Ii, HTN, s/p ventral hernia repair admitted with intraperitoneal abscess . s/p IR drainage of the abscess and drain in place today. afebrile now. leukocytosis trending down wound cx- pseudomonas sens to carbapenems and zosyn blood cx- neg x 2 plan- advised nurse to imeediately d/c the current IVL and place another IVl at different site . based on wound cx results , advise to d/c vancomycin. can continue with IV zosyn, day #3. drain management as per surgical team.
[2017-07-23] MEDS ORDERED: Vancomycin 500 mg Inj IVPB SCH (18:15)
[2017-07-24] MEDS: Piperacillin/Tazobact 3.375 GM in Sodium Chloride 0.9% 100 ML IVPB SCH ×4 (03:31→20:20)
[2017-07-24] MEDS: Insulin Regular 100 units/ml SC SCH ×4 (06:55→22:00)
[2017-07-24 07:36] LABS: BASO # 0.1 K/uL (0.0-0.2); BASO % 0.9 % (0.0-2.0); EOS # 0.7 K/uL (0.0-0.7); EOS % 5.2 % (0.0-4.0); HEMOGLOBIN 11.7 g/dL (12.0-16.0); LYMPH # 2.5 K/uL (1.0-4.3); LYMPH % 19.9 % (20.0-40.0); MEAN CELL VOLUME 88.9 fl (81.0-99.0); MEAN CORPUSCULAR HGB CONC 32.7 g/dL (33.0-37.0); MEAN PLATELET VOLUME 8.7 fl (7.2-11.7); MONO # 0.8 K/uL (0.0-0.8); MONO % 6.7 % (0.0-10.0); NEUT # 8.4 K/uL (1.8-7.0); NEUT % 67.3 % (50.0-75.0); RBC 4.02 Mil/uL (3.80-5.20); RED CELL DISTRIBUTION WIDTH 14.4 % (11.5-14.5); WHITE BLOOD COUNT 12.5 K/uL (4.8-10.8)
[2017-07-24] MEDS: Saccharomyces Boulardi 250 mg Cap PO SCH ×2 (08:28→16:13)
[2017-07-24] MEDS: Levothyroxine 100 MCG TAB PO SCH (08:29)
[2017-07-24 08:30] LABS: ALBUMIN 2.9 g/dL (3.5-5.0); BILIRUBIN,DIRECT 0.4 mg/ml (0.0-0.4)
[2017-07-24 08:33] LABS: ALB/GLOB RATIO 0.8 (1.0-2.1)
--- NOTE | 2017-07-24 08:40 | CP.PCM.PN ---
Subjective - Date & Time of Evaluation Date of Evaluation: 07/24/17 Time of Evaluation: 08:38 - Subjective Subjective: General Surgery: Dr Horvath Pt S&E. NAEO. Denies f/c, n/v. Tolerating diet and having bowel movements. Cx came back psuedomonas. Pt on Zosyn per ID. I discontinued vanco this morning as per ID consult. Objective - Vital Signs/Intake and Output Vital Signs (last 24 hours): Temp Pulse Resp BP Pulse Ox 98.7 F 75 20 106/71 96 07/24/17 07:54 07/24/17 08:28 07/24/17 07:54 07/24/17 08:28 07/24/17 07:54 - Medications Medications: Current Medications Acetaminophen (Tylenol 325mg Tab) 650 mg PO Q6 PRN PRN Reason: Fever >100.4 F Aspirin (Ecotrin) 81 mg PO DAILY [facility] Last Admin: 07/24/17 08:28 Dose: 81 mg Dextrose (Dextrose 50% Inj) 0 ml IVP STAT PRN; Protocol PRN Reason: Hypoglycemia Protocol Docusate Sodium (Colace) 100 mg PO BID [facility] Last Admin: 07/24/17 08:28 Dose: Not Given Glucagon (Glucagen Diagnostic Kit) 0 mg IM STAT PRN; Protocol PRN Reason: Hypoglycemia Protocol Heparin Sodium (Porcine) (Heparin) 5,000 units SC Q8 [facility] PRN Reason: Protocol Last Admin: 07/24/17 08:29 Dose: Not Given Piperacillin Sod/Tazobactam (Sod 3.375 gm/ Sodium Chloride) 100 mls @ 100 mls/ hr IVPB Q6H [facility] PRN Reason: Protocol Last Admin: 07/24/17 08:29 Dose: 100 mls/hr Ibuprofen (Motrin Tab) 600 mg PO Q6 PRN PRN Reason: Pain, moderate (4-7) Insulin Human Regular (Humulin R) 0 units SC ACHS [facility] PRN Reason: Protocol Last Admin: 07/24/17 06:55 Dose: Not Given Levothyroxine Sodium (Synthroid) 100 mcg PO DAILY [facility] Last Admin: 07/24/17 08:29 Dose: 100 mcg Losartan Potassium (Cozaar) 25 mg PO DAILY [facility] Last Admin: 07/24/17 08:28 Dose: 25 mg Metformin HCl (Glucophage) 500 mg PO BID [facility] Last Admin: 07/24/17 08:28 Dose: 500 mg Ondansetron HCl (Zofran Inj) 4 mg IVP Q6 PRN PRN Reason: Nausea/Vomiting Oxycodone/Acetaminophen (Percocet 5/325 Mg Tab) 1 tab PO Q4 PRN PRN Reason: Pain, severe (8-10) Stop: 07/24/17 19:32 Last Admin: 07/22/17 21:15 Dose: 1 tab Saccharomyces Boulardii (Florastor) 250 mg PO BID [facility] Last Admin: 07/24/17 08:28 Dose: 250 mg - Labs Labs: 07/24/17 06:00 07/23/17 06:11 PT 12.0 Seconds (9.8-13.1) 07/21/17 15:15 INR 1.1 (0.9-1.2) 07/21/17 15:15 APTT 29.7 Seconds (25.6-37.1) 07/21/17 15:15 - Constitutional Appears: Non-toxic, No Acute Distress - Eye Exam Eye Exam: Normal appearance - Respiratory Exam Respiratory Exam: absent: Accessory Muscle Use, Respiratory Distress - Cardiovascular Exam Cardiovascular Exam: REGULAR RHYTHM - GI/Abdominal Exam GI & Abdominal Exam: Soft. absent: Distended, Firm, Guarding, Tenderness Additional comments: midline incision c/d/i, minimal erythema, no drainage - Neurological Exam Neurological Exam: Alert, Awake - Psychiatric Exam Psychiatric exam: Normal Affect, Normal Mood - Skin Skin Exam: Normal Color, Warm Assessment and Plan - Assessment and Plan (Free Text) Assessment: 72F with abdominal wall fluid collection s/p ventral hernia repair Plan: d/c vanc cont zosyn cont regular diet OOB and ambulate pain control prn no further intervention needed just cont abx for now d/w Dr Alexandru Camara, PGY3
--- NOTE | 2017-07-24 08:53 | CP.PCM.PN ---
Addendum entered and electronically signed by Shavon Emery 07/24/17 14:00: Spoke with ID weight loss sales consultant and will continue with Zosyn for an additional 2 days, re-start Vancomycin. Original Note: Subjective - Date & Time of Evaluation Date of Evaluation: 07/24/17 Time of Evaluation: 07:30 - Subjective Subjective: 72F s/p IR drainage for post-op intra-abdominal fluid collection. Patient tolerating diet, voiding, abd pain improved, and denies fever/chills/SOB /chest pain. Passing flatus, and reports 5 BMs yesterday. Patient requesting ruslan be removed. Objective - Vital Signs/Intake and Output Vital Signs (last 24 hours): Temp Pulse Resp BP Pulse Ox 37.1 C 75 20 106/71 96 07/24/17 07:54 07/24/17 08:28 07/24/17 07:54 07/24/17 08:28 07/24/17 07:54 - Medications Medications: Current Medications Acetaminophen (Tylenol 325mg Tab) 650 mg PO Q6 PRN PRN Reason: Fever >100.4 F Aspirin (Ecotrin) 81 mg PO DAILY [facility] Last Admin: 07/24/17 08:28 Dose: 81 mg Dextrose (Dextrose 50% Inj) 0 ml IVP STAT PRN; Protocol PRN Reason: Hypoglycemia Protocol Docusate Sodium (Colace) 100 mg PO BID [facility] Last Admin: 07/24/17 08:28 Dose: Not Given Glucagon (Glucagen Diagnostic Kit) 0 mg IM STAT PRN; Protocol PRN Reason: Hypoglycemia Protocol Heparin Sodium (Porcine) (Heparin) 5,000 units SC Q8 RADHA PRN Reason: Protocol Last Admin: 07/24/17 08:29 Dose: Not Given Piperacillin Sod/Tazobactam (Sod 3.375 gm/ Sodium Chloride) 100 mls @ 100 mls/ hr IVPB Q6H RADHA PRN Reason: Protocol Last Admin: 07/24/17 08:29 Dose: 100 mls/hr Ibuprofen (Motrin Tab) 600 mg PO Q6 PRN PRN Reason: Pain, moderate (4-7) Insulin Human Regular (Humulin R) 0 units SC ACHS RADHA PRN Reason: Protocol Last Admin: 07/24/17 06:55 Dose: Not Given Levothyroxine Sodium (Synthroid) 100 mcg PO DAILY [facility] Last Admin: 07/24/17 08:29 Dose: 100 mcg Losartan Potassium (Cozaar) 25 mg PO DAILY [facility] Last Admin: 07/24/17 08:28 Dose: 25 mg Metformin HCl (Glucophage) 500 mg PO BID [facility] Last Admin: 07/24/17 08:28 Dose: 500 mg Ondansetron HCl (Zofran Inj) 4 mg IVP Q6 PRN PRN Reason: Nausea/Vomiting Oxycodone/Acetaminophen (Percocet 5/325 Mg Tab) 1 tab PO Q4 PRN PRN Reason: Pain, severe (8-10) Stop: 07/24/17 19:32 Last Admin: 07/22/17 21:15 Dose: 1 tab Saccharomyces Boulardii (Florastor) 250 mg PO BID [facility] Last Admin: 07/24/17 08:28 Dose: 250 mg - Labs Labs: 07/24/17 06:00 07/23/17 06:11 PT 12.0 Seconds (9.8-13.1) 07/21/17 15:15 INR 1.1 (0.9-1.2) 07/21/17 15:15 APTT 29.7 Seconds (25.6-37.1) 07/21/17 15:15 - Constitutional Appears: Well, Non-toxic, No Acute Distress - Head Exam Head Exam: ATRAUMATIC, NORMAL INSPECTION - Eye Exam Eye Exam: EOMI, Normal appearance, PERRL - ENT Exam ENT Exam: Mucous Membranes Moist, Normal Exam - Neck Exam Neck Exam: Full ROM, Normal Inspection - Respiratory Exam Respiratory Exam: Clear to Ausculation Bilateral, NORMAL BREATHING PATTERN. absent: Rales, Rhonchi, Wheezes - Cardiovascular Exam Cardiovascular Exam: REGULAR RHYTHM, +S1, +S2 - GI/Abdominal Exam GI & Abdominal Exam: Soft, Normal Bowel Sounds (TROY drain, draining decreasing serosanguinous fluid). absent: Tenderness - Extremities Exam Extremities Exam: Full ROM, Normal Capillary Refill - Neurological Exam Neurological Exam: Alert, Awake, Oriented x3 - Psychiatric Exam Psychiatric exam: Normal Affect, Normal Mood - Skin Skin Exam: Dry, Warm Assessment and Plan - Assessment and Plan (Free Text) Assessment: 72F POD #12 s/p repeat hernia repair and found to have intra-abdominal collection drained by IR now growing pseudomonas. Wound culture is growing pseudomonas. Pt is AVSS, tolerating diet, and ambulating. - Wound/drainage management as per Surgical Team (Please provide follow up instructions for discharge) - Bowel Regimen held - ID Consult Dr Whatley appreciated (f/u all cultures) - Wound Cx: Pseudomonas sensitive to Zosyn, awaiting ID rec for length of abx, Vancomycin discontinued - Collection Fluid: Pseudomonas sensitive to Zosyn, Vancomycin discontinued - BCx x1: s. aureus & coag-neg staph PNA FISH showing gram- POS, this makes no sense given pseudomonal growth, not treating - UCx: Lactobacillus- awaiting ID recommendations as normal renetta, however ?? atypical dense growth - NIDDM, HTN, NAFLD: c/w on current medication regimen - LFT elevation: likely NAFLD and bystander effect - d/w Dr Elliott
--- NOTE | 2017-07-24 13:47 | CP.PCM.PN ---
Subjective - Date & Time of Evaluation Date of Evaluation: 07/24/17 Time of Evaluation: 13:47 - Subjective Subjective: ID Note- Pt. seen and examined today . no new events overnight. denies any fever or chills. Objective - Vital Signs/Intake and Output Vital Signs (last 24 hours): Temp Pulse Resp BP Pulse Ox 98.7 F 75 20 106/71 96 07/24/17 07:54 07/24/17 08:28 07/24/17 07:54 07/24/17 08:28 07/24/17 07:54 - Medications Medications: Current Medications Acetaminophen (Tylenol 325mg Tab) 650 mg PO Q6 PRN PRN Reason: Fever >100.4 F Aspirin (Ecotrin) 81 mg PO DAILY [facility] Last Admin: 07/24/17 08:28 Dose: 81 mg Dextrose (Dextrose 50% Inj) 0 ml IVP STAT PRN; Protocol PRN Reason: Hypoglycemia Protocol Docusate Sodium (Colace) 100 mg PO BID [facility] Last Admin: 07/24/17 08:28 Dose: Not Given Glucagon (Glucagen Diagnostic Kit) 0 mg IM STAT PRN; Protocol PRN Reason: Hypoglycemia Protocol Heparin Sodium (Porcine) (Heparin) 5,000 units SC Q8 RADHA PRN Reason: Protocol Last Admin: 07/24/17 08:29 Dose: Not Given Piperacillin Sod/Tazobactam (Sod 3.375 gm/ Sodium Chloride) 100 mls @ 100 mls/ hr IVPB Q6H RADHA PRN Reason: Protocol Last Admin: 07/24/17 08:29 Dose: 100 mls/hr Ibuprofen (Motrin Tab) 600 mg PO Q6 PRN PRN Reason: Pain, moderate (4-7) Insulin Human Regular (Humulin R) 0 units SC ACHS RADHA PRN Reason: Protocol Last Admin: 07/24/17 12:38 Dose: 1 units Levothyroxine Sodium (Synthroid) 100 mcg PO DAILY [facility] Last Admin: 07/24/17 08:29 Dose: 100 mcg Losartan Potassium (Cozaar) 25 mg PO DAILY [facility] Last Admin: 07/24/17 08:28 Dose: 25 mg Metformin HCl (Glucophage) 500 mg PO BID [facility] Last Admin: 07/24/17 08:28 Dose: 500 mg Ondansetron HCl (Zofran Inj) 4 mg IVP Q6 PRN PRN Reason: Nausea/Vomiting Oxycodone/Acetaminophen (Percocet 5/325 Mg Tab) 1 tab PO Q4 PRN PRN Reason: Pain, severe (8-10) Stop: 07/24/17 19:32 Last Admin: 07/22/17 21:15 Dose: 1 tab Saccharomyces Boulardii (Florastor) 250 mg PO BID [facility] Last Admin: 07/24/17 08:28 Dose: 250 mg - Labs Labs: - Additional Findings Additional findings: - Constitutional Appears: No Acute Distress - Head Exam Head Exam: ATRAUMATIC - Eye Exam Eye Exam: EOMI, PERRL - ENT Exam ENT Exam: Normal Oropharynx - Neck Exam Neck exam: Positive for: Full Rom - Respiratory Exam Respiratory Exam: Clear to Auscultation Bilateral, NORMAL BREATHING PATTERN - Cardiovascular Exam Cardiovascular Exam: RRR, +S1, +S2 - GI/Abdominal Exam GI & Abdominal Exam: Soft Additional comments: mid abdominal vertical surgical site with ruslan in place, no discharge seen but there is erythema around the ruslan,howver, less than yesterday right pigtail catheter in place draining sanguinous fluid positive bowel sounds minimal tenderness only around surgical site no rebound, no guarding - Extremities Exam Extremities exam: left hadn IVL site edematous and tender ( infiltarted IVL) - Neurological Exam Neurological exam: Alert, Oriented x 3 Laboratory Results - last 72 hr 07/21/17 07/21/17 07/21/17 15:15 15:15 15:15 WBC 16.6 H D RBC 4.62 Hgb 13.6 Hct 41.3 MCV 89.3 MCH 29.3 MCHC 32.9 L RDW 14.6 H Plt Count 467 H D MPV 9.0 Neut % (Auto) 70.6 Lymph % (Auto) 19.1 L Jerome % (Auto) 8.1 Eos % (Auto) 1.7 Baso % (Auto) 0.5 Neut # 11.7 H Lymph # 3.2 Jerome # 1.3 H Eos # 0.3 Baso # 0.1 PT 12.0 INR 1.1 APTT 29.7 pO2 VBG pH VBG pCO2 VBG HCO3 VBG Total CO2 VBG O2 Sat (Calc) VBG Base Excess VBG Potassium Glucose Lactate FiO2 Crit Value Called To Crit Value Called By Crit Value Read Back Blood Gas Notified Time Sodium 139 Potassium 3.5 L Chloride 98 Carbon Dioxide 28 Anion Gap 17 BUN 18 H Creatinine 0.9 Est GFR ( Amer) > 60 Est GFR (Non-Af Amer) > 60 POC Glucose (mg/dL) Random Glucose 116 H Calcium 8.9 Total Bilirubin 0.7 Direct Bilirubin AST 102 H D ALT 86 H D Alkaline Phosphatase 246 H D Total Protein 8.1 Albumin 3.7 Globulin 4.4 H Albumin/Globulin Ratio 0.8 L Procalcitonin Venous Blood Potassium Urine Color Urine Clarity Urine pH Ur Specific [place] Urine Protein Urine Glucose (UA) Urine Ketones Urine Blood Urine Nitrate Urine Bilirubin Urine Urobilinogen Ur Leukocyte Esterase Urine RBC (Auto) Urine Microscopic WBC Ur Squamous Epith Cells Urine Bacteria 07/21/17 07/21/17 07/21/17 15:15 15:45 20:23 WBC RBC Hgb Hct MCV MCH MCHC RDW Plt Count MPV Neut % (Auto) Lymph % (Auto) Jerome % (Auto) Eos % (Auto) Baso % (Auto) Neut # Lymph # Jerome # Eos # Baso # PT INR APTT pO2 35 15 L VBG pH 7.35 7.44 H VBG pCO2 48 40 VBG HCO3 24.2 25.0 VBG Total CO2 28.0 28.4 H VBG O2 Sat (Calc) 70.7 H 27.1 L VBG Base Excess 0.3 2.8 H VBG Potassium 3.6 4.1 Glucose 112 H 127 H Lactate 3.7 H 1.7 FiO2 21.0 21.0 Crit Value Called To Andrew ponce Crit Value Called By 23 Crit Value Read Back Y Blood Gas Notified Time 1550 Sodium 135.0 135.0 Potassium Chloride 98.0 101.0 Carbon Dioxide Anion Gap BUN Creatinine Est GFR ( Amer) Est GFR (Non-Af Amer) POC Glucose (mg/dL) Random Glucose Calcium Total Bilirubin Direct Bilirubin AST ALT Alkaline Phosphatase Total Protein Albumin Globulin Albumin/Globulin Ratio Procalcitonin Venous Blood Potassium 3.6 4.1 Urine Color Yellow Urine Clarity Slighty-cloudy Urine pH 6.0 Ur Specific [place] 1.016 Urine Protein Negative Urine Glucose (UA) Neg Urine Ketones Negative Urine Blood Negative Urine Nitrate Negative Urine Bilirubin Negative Urine Urobilinogen 0.2-1.0 Ur Leukocyte Esterase Neg Urine RBC (Auto) 3 Urine Microscopic WBC 1 Ur Squamous Epith Cells 6 H Urine Bacteria Occ H 07/21/17 07/22/17 07/22/17 21:58 04:32 04:32 WBC 12.5 H RBC 3.95 Hgb 11.8 L Hct 35.8 MCV 90.5 MCH 29.9 MCHC 33.0 RDW 14.5 Plt Count 380 MPV 9.0 Neut % (Auto) 67.7 Lymph % (Auto) 19.6 L Jerome % (Auto) 8.0 Eos % (Auto) 3.9 Baso % (Auto) 0.8 Neut # 8.4 H Lymph # 2.5 Jerome # 1.0 H Eos # 0.5 Baso # 0.1 PT INR APTT pO2 VBG pH VBG pCO2 VBG HCO3 VBG Total CO2 VBG O2 Sat (Calc) VBG Base Excess VBG Potassium Glucose Lactate FiO2 Crit Value Called To Crit Value Called By Crit Value Read Back Blood Gas Notified Time Sodium 141 Potassium 4.3 Chloride 106 Carbon Dioxide 29 Anion Gap 10 BUN 15 Creatinine 1.0 Est GFR ( Amer) > 60 Est GFR (Non-Af Amer) 54 POC Glucose (mg/dL) 112 H Random Glucose 121 H Calcium 7.9 L Total Bilirubin 0.5 Direct Bilirubin AST 79 H D ALT 72 H Alkaline Phosphatase 162 H D Total Protein 6.5 Albumin 2.8 L D Globulin 3.7 Albumin/Globulin Ratio 0.7 L Procalcitonin Venous Blood Potassium Urine Color Urine Clarity Urine pH Ur Specific [place] Urine Protein Urine Glucose (UA) Urine Ketones Urine Blood Urine Nitrate Urine Bilirubin Urine Urobilinogen Ur Leukocyte Esterase Urine RBC (Auto) Urine Microscopic WBC Ur Squamous Epith Cells Urine Bacteria 07/22/17 07/22/17 07/22/17 04:32 05:42 11:14 WBC RBC Hgb Hct MCV MCH MCHC RDW Plt Count MPV Neut % (Auto) Lymph % (Auto) Jerome % (Auto) Eos % (Auto) Baso % (Auto) Neut # Lymph # Jerome # Eos # Baso # PT INR APTT pO2 VBG pH VBG pCO2 VBG HCO3 VBG Total CO2 VBG O2 Sat (Calc) VBG Base Excess VBG Potassium Glucose Lactate FiO2 Crit Value Called To Crit Value Called By Crit Value Read Back Blood Gas Notified Time Sodium Potassium Chloride Carbon Dioxide Anion Gap BUN Creatinine Est GFR ( Amer) Est GFR (Non-Af Amer) POC Glucose (mg/dL) 102 143 H Random Glucose Calcium Total Bilirubin Direct Bilirubin AST ALT Alkaline Phosphatase Total Protein Albumin Globulin Albumin/Globulin Ratio Procalcitonin 0.16 L Venous Blood Potassium Urine Color Urine Clarity Urine pH Ur Specific [place] Urine Protein Urine Glucose (UA) Urine Ketones Urine Blood Urine Nitrate Urine Bilirubin Urine Urobilinogen Ur Leukocyte Esterase Urine RBC (Auto) Urine Microscopic WBC Ur Squamous Epith Cells Urine Bacteria 07/22/17 07/22/17 07/22/17 13:50 15:49 21:02 WBC RBC Hgb Hct MCV MCH MCHC RDW Plt Count MPV Neut % (Auto) Lymph % (Auto) Jerome % (Auto) Eos % (Auto) Baso % (Auto) Neut # Lymph # Jerome # Eos # Baso # PT INR APTT pO2 VBG pH VBG pCO2 VBG HCO3 VBG Total CO2 VBG O2 Sat (Calc) VBG Base Excess VBG Potassium Glucose Lactate FiO2 Crit Value Called To Crit Value Called By Crit Value Read Back Blood Gas Notified Time Sodium Potassium Chloride Carbon Dioxide Anion Gap BUN Creatinine Est GFR ( Amer) Est GFR (Non-Af Amer) POC Glucose (mg/dL) 121 H 110 115 H Random Glucose Calcium Total Bilirubin Direct Bilirubin AST ALT Alkaline Phosphatase Total Protein Albumin Globulin Albumin/Globulin Ratio Procalcitonin Venous Blood Potassium Urine Color Urine Clarity Urine pH Ur Specific [place] Urine Protein Urine Glucose (UA) Urine Ketones Urine Blood Urine Nitrate Urine Bilirubin Urine Urobilinogen Ur Leukocyte Esterase Urine RBC (Auto) Urine Microscopic WBC Ur Squamous Epith Cells Urine Bacteria 07/23/17 07/23/17 07/23/17 05:08 06:11 06:11 WBC 12.6 H RBC 3.99 Hgb 11.9 L Hct 35.5 MCV 89.0 MCH 29.8 MCHC 33.5 RDW 14.4 Plt Count 384 MPV Neut % (Auto) Lymph % (Auto) Jerome % (Auto) Eos % (Auto) Baso % (Auto) Neut # Lymph # Jerome # Eos # Baso # PT INR APTT pO2 VBG pH VBG pCO2 VBG HCO3 VBG Total CO2 VBG O2 Sat (Calc) VBG Base Excess VBG Potassium Glucose Lactate FiO2 Crit Value Called To Crit Value Called By Crit Value Read Back Blood Gas Notified Time Sodium 140 Potassium 4.2 Chloride 104 Carbon Dioxide 26 Anion Gap 14 BUN 17 Creatinine 1.0 Est GFR ( Amer) > 60 Est GFR (Non-Af Amer) 54 POC Glucose (mg/dL) 112 H Random Glucose 127 H Calcium 7.8 L Total Bilirubin 0.6 Direct Bilirubin AST 61 H D ALT 68 H Alkaline Phosphatase 163 H Total Protein 6.7 Albumin 2.8 L Globulin 3.8 Albumin/Globulin Ratio 0.7 L Procalcitonin Venous Blood Potassium Urine Color Urine Clarity Urine pH Ur Specific [place] Urine Protein Urine Glucose (UA) Urine Ketones Urine Blood Urine Nitrate Urine Bilirubin Urine Urobilinogen Ur Leukocyte Esterase Urine RBC (Auto) Urine Microscopic WBC Ur Squamous Epith Cells Urine Bacteria 07/23/17 07/23/17 07/23/17 11:18 15:51 21:11 WBC RBC Hgb Hct MCV MCH MCHC RDW Plt Count MPV Neut % (Auto) Lymph % (Auto) Jerome % (Auto) Eos % (Auto) Baso % (Auto) Neut # Lymph # Jerome # Eos # Baso # PT INR APTT pO2 VBG pH VBG pCO2 VBG HCO3 VBG Total CO2 VBG O2 Sat (Calc) VBG Base Excess VBG Potassium Glucose Lactate FiO2 Crit Value Called To Crit Value Called By Crit Value Read Back Blood Gas Notified Time Sodium Potassium Chloride Carbon Dioxide Anion Gap BUN Creatinine Est GFR ( Amer) Est GFR (Non-Af Amer) POC Glucose (mg/dL) 112 H 142 H 102 Random Glucose Calcium Total Bilirubin Direct Bilirubin AST ALT Alkaline Phosphatase Total Protein Albumin Globulin Albumin/Globulin Ratio Procalcitonin Venous Blood Potassium Urine Color Urine Clarity Urine pH Ur Specific [place] Urine Protein Urine Glucose (UA) Urine Ketones Urine Blood Urine Nitrate Urine Bilirubin Urine Urobilinogen Ur Leukocyte Esterase Urine RBC (Auto) Urine Microscopic WBC Ur Squamous Epith Cells Urine Bacteria 07/24/17 07/24/17 07/24/17 05:58 06:00 06:00 WBC 12.5 H RBC 4.02 Hgb 11.7 L Hct 35.7 MCV 88.9 MCH 29.0 MCHC 32.7 L RDW 14.4 Plt Count 381 MPV 8.7 Neut % (Auto) 67.3 Lymph % (Auto) 19.9 L Jerome % (Auto) 6.7 Eos % (Auto) 5.2 H Baso % (Auto) 0.9 Neut # 8.4 H Lymph # 2.5 Jerome # 0.8 Eos # 0.7 Baso # 0.1 PT INR APTT pO2 VBG pH VBG pCO2 VBG HCO3 VBG Total CO2 VBG O2 Sat (Calc) VBG Base Excess VBG Potassium Glucose Lactate FiO2 Crit Value Called To Crit Value Called By Crit Value Read Back Blood Gas Notified Time Sodium Potassium Chloride Carbon Dioxide Anion Gap BUN Creatinine Est GFR ( Amer) Est GFR (Non-Af Amer) POC Glucose (mg/dL) 127 H Random Glucose Calcium Total Bilirubin 0.5 Direct Bilirubin 0.4 AST 50 H ALT 56 H Alkaline Phosphatase 143 H Total Protein 6.5 Albumin 2.9 L Globulin 3.6 Albumin/Globulin Ratio 0.8 L Procalcitonin Venous Blood Potassium Urine Color Urine Clarity Urine pH Ur Specific [place] Urine Protein Urine Glucose (UA) Urine Ketones Urine Blood Urine Nitrate Urine Bilirubin Urine Urobilinogen Ur Leukocyte Esterase Urine RBC (Auto) Urine Microscopic WBC Ur Squamous Epith Cells Urine Bacteria 07/24/17 10:57 WBC RBC Hgb Hct MCV MCH MCHC RDW Plt Count MPV Neut % (Auto) Lymph % (Auto) Jerome % (Auto) Eos % (Auto) Baso % (Auto) Neut # Lymph # Jerome # Eos # Baso # PT INR APTT pO2 VBG pH VBG pCO2 VBG HCO3 VBG Total CO2 VBG O2 Sat (Calc) VBG Base Excess VBG Potassium Glucose Lactate FiO2 Crit Value Called To Crit Value Called By Crit Value Read Back Blood Gas Notified Time Sodium Potassium Chloride Carbon Dioxide Anion Gap BUN Creatinine Est GFR ( Amer) Est GFR (Non-Af Amer) POC Glucose (mg/dL) 174 H Random Glucose Calcium Total Bilirubin Direct Bilirubin AST ALT Alkaline Phosphatase Total Protein Albumin Globulin Albumin/Globulin Ratio Procalcitonin Venous Blood Potassium Urine Color Urine Clarity Urine pH Ur Specific [place] Urine Protein Urine Glucose (UA) Urine Ketones Urine Blood Urine Nitrate Urine Bilirubin Urine Urobilinogen Ur Leukocyte Esterase Urine RBC (Auto) Urine Microscopic WBC Ur Squamous Epith Cells Urine Bacteria Microbiology 07/22/17 15:52 Abdominal Fluid Gram Stain - Final 07/22/17 15:52 Abdominal Fluid Body Fluid Culture - Final Pseudomonas Aeruginosa 07/21/17 18:00 Blood-Venous S.aureus & Coag-Neg Staph PNA FISH - Final 07/21/17 18:00 Blood-Venous Blood Culture - Preliminary Gram Positive Cocci 07/21/17 18:00 Blood-Venous Gram Stain - Final 07/22/17 18:55 Blood-Venous Blood Culture - Preliminary NO GROWTH AFTER 24 HOURS 07/21/17 18:40 Blood-Venous Blood Culture - Preliminary NO GROWTH AFTER 48 HOURS 07/21/17 15:40 Abdomen Gram Stain - Final 07/21/17 15:40 Abdomen Wound Culture - Final Pseudomonas Aeruginosa 07/21/17 15:15 Urine Urine Culture - Final Lactobacillus Species Assessment and Plan (1) Intraperitoneal abscess Status: Acute (2) Post op infection Status: Acute (3) Diabetes mellitus Status: Chronic (4) Leukocytosis Status: Acute - Assessment and Plan (Free Text) Assessment: A/P- 72 year old female with DM Ii, HTN, s/p ventral hernia repair admitted with intraperitoneal abscess . s/p IR drainage of the abscess and drain in place today. afebrile now. leukocytosis trending down abd wound cx- pseudomonas sens to carbapenems and zosyn abd fluid cx- pseudomonas blood cx- 1 of the 2 bottles coag neg staph( most likely contaminant) plan- continue with IV zosyn, day #4. length of abx depends on the length of time drain remains in place and how much drainage there is. for now adbise 3 more days to complete total of 7 days of IV abx for pseudomonal intra-abdominal infx . drain management as per surgical team. also advise to restart IV vancomycin for coag neg staph bacteremia ( eventhough most likey) contaminant would advise to be on IV vanco until we have repeat negative blood cx . monitor wbc. all above d/w (surgeon).
--- NOTE | 2017-07-25 00:46 | CP.PCM.PCO ---
Physician Communication Note - Physician Communication Note Physician Communication Note: will consider staple removal prior to D/C - when Seroma is resolved.
[2017-07-25] MEDS: Piperacillin/Tazobact 3.375 GM in Sodium Chloride 0.9% 100 ML IVPB SCH ×2 (03:24→10:42)
[2017-07-25 06:21] LABS: MEAN CELL VOLUME 88.9 fl (81.0-99.0); MEAN CORPUSCULAR HEMOGLOBIN 29.3 pg (27.0-31.0); RBC 4.08 Mil/uL (3.80-5.20); RED CELL DISTRIBUTION WIDTH 14.5 % (11.5-14.5); WHITE BLOOD COUNT 12.5 K/uL (4.8-10.8)
[2017-07-25] MEDS: Insulin Regular 100 units/ml SC SCH ×4 (06:30→21:21)
[2017-07-25 06:34] LABS: BLOOD UREA NITROGEN 11 mg/dl (7-17); CALCIUM 7.9 mg/dL (8.4-10.2); GFR AFRICAN-AMERICAN > 60; GFR NON-AFRICAN AMERICAN 54
--- NOTE | 2017-07-25 07:59 | CP.PCM.PN ---
Subjective - Date & Time of Evaluation Date of Evaluation: 07/25/17 Time of Evaluation: 07:10 - Subjective Subjective: General surgery progress note for Dr. Indiana Quintana, PGY-1 Pt S & E at bedside. Pt reports ab pain is better, tolerating diet, flatus. Denies SOB, CP. Objective - Vital Signs/Intake and Output Vital Signs (last 24 hours): Temp Pulse Resp BP Pulse Ox 98.1 F 71 18 94/56 L 95 07/25/17 00:27 07/25/17 00:27 07/25/17 00:27 07/25/17 00:27 07/25/17 00:27 - Medications Medications: Current Medications Acetaminophen (Tylenol 325mg Tab) 650 mg PO Q6 PRN PRN Reason: Fever >100.4 F Aspirin (Ecotrin) 81 mg PO DAILY [facility] Last Admin: 07/24/17 08:28 Dose: 81 mg Dextrose (Dextrose 50% Inj) 0 ml IVP STAT PRN; Protocol PRN Reason: Hypoglycemia Protocol Docusate Sodium (Colace) 100 mg PO BID [facility] Last Admin: 07/24/17 08:28 Dose: Not Given Glucagon (Glucagen Diagnostic Kit) 0 mg IM STAT PRN; Protocol PRN Reason: Hypoglycemia Protocol Heparin Sodium (Porcine) (Heparin) 5,000 units SC Q8 RADHA PRN Reason: Protocol Last Admin: 07/25/17 01:15 Dose: Not Given Piperacillin Sod/Tazobactam (Sod 3.375 gm/ Sodium Chloride) 100 mls @ 100 mls/ hr IVPB Q6H RADHA PRN Reason: Protocol Last Admin: 07/25/17 03:24 Dose: 100 mls/hr Vancomycin HCl 1 gm/ Sodium (Chloride) 250 mls @ 166.667 mls/hr IVPB Q12 RADHA PRN Reason: Protocol Last Admin: 07/24/17 20:21 Dose: 166.667 mls/hr Ibuprofen (Motrin Tab) 600 mg PO Q6 PRN PRN Reason: Pain, moderate (4-7) Insulin Human Regular (Humulin R) 0 units SC ACHS RADHA PRN Reason: Protocol Last Admin: 07/25/17 06:30 Dose: Not Given Levothyroxine Sodium (Synthroid) 100 mcg PO DAILY [facility] Last Admin: 07/24/17 08:29 Dose: 100 mcg Losartan Potassium (Cozaar) 25 mg PO DAILY [facility] Last Admin: 07/24/17 08:28 Dose: 25 mg Metformin HCl (Glucophage) 500 mg PO BID [facility] Last Admin: 07/24/17 16:13 Dose: 500 mg Ondansetron HCl (Zofran Inj) 4 mg IVP Q6 PRN PRN Reason: Nausea/Vomiting Saccharomyces Boulardii (Florastor) 250 mg PO BID [facility] Last Admin: 07/24/17 16:13 Dose: 250 mg - Labs Labs: 07/25/17 05:30 07/25/17 05:30 PT 12.0 Seconds (9.8-13.1) 07/21/17 15:15 INR 1.1 (0.9-1.2) 07/21/17 15:15 APTT 29.7 Seconds (25.6-37.1) 07/21/17 15:15 - Constitutional Appears: Non-toxic, No Acute Distress - Head Exam Head Exam: ATRAUMATIC, NORMAL INSPECTION, NORMOCEPHALIC - Eye Exam Eye Exam: EOMI, Normal appearance - ENT Exam ENT Exam: Mucous Membranes Moist, Normal Exam - Neck Exam Neck Exam: Full ROM, Normal Inspection - Respiratory Exam Respiratory Exam: NORMAL BREATHING PATTERN - Cardiovascular Exam Cardiovascular Exam: REGULAR RHYTHM - GI/Abdominal Exam GI & Abdominal Exam: Soft. absent: Distended, Firm, Guarding, Rigid, Tenderness Additional comments: ruslan in place, slight erythema at ruslan incision sites, no drainage noted - Extremities Exam Extremities Exam: Normal Inspection - Neurological Exam Neurological Exam: Alert, Awake, CN II-XII Intact, Oriented x3 - Psychiatric Exam Psychiatric exam: Normal Affect, Normal Mood - Skin Skin Exam: Dry, Intact, Normal Color, Warm Assessment and Plan - Assessment and Plan (Free Text) Assessment: 72F with abdominal wall fluid collection s/p ventral hernia repair - taken for IR drainage on 07/22 Plan: cont zosyn x 7 days - will be completed on 07/27 cont regular diet OOB and ambulate pain control prn [place] removed as per Dr. Horvath Abdominal binder requested by pt- asked nursing to give to pt no further surgical intervention needed just cont abx for now DW attending [facility], PGY-1
[2017-07-25] MEDS: Levothyroxine 100 MCG TAB PO SCH (08:16)
[2017-07-25] MEDS: Saccharomyces Boulardi 250 mg Cap PO SCH ×2 (08:21→16:51)
--- NOTE | 2017-07-25 09:25 | CP.PCM.PN ---
Subjective - Date & Time of Evaluation Date of Evaluation: 07/25/17 Time of Evaluation: 08:00 - Subjective Subjective: Family Medicine 72 year old female seen and evaluated 3 days s/p IR drainage intra-abdominal fluid collection. Patient denies any abdominal pain today however admits to a burning sensation around incision, started overnight. Patient inquiring when ruslan from previous surgery can be removed. Tolerating diet. Able to void freely, had 2 BM yesterday, passing flatus. Denies nausea, vomiting, fever, chills, palpitations, chest pain, dizziness, SOB, bilateral calf pain. Objective - Vital Signs/Intake and Output Vital Signs (last 24 hours): Temp Pulse Resp BP Pulse Ox 98.4 F 74 18 115/76 94 L 07/25/17 08:20 07/25/17 08:21 07/25/17 08:20 07/25/17 08:21 07/25/17 08:20 - Medications Medications: Current Medications Acetaminophen (Tylenol 325mg Tab) 650 mg PO Q6 PRN PRN Reason: Fever >100.4 F Aspirin (Ecotrin) 81 mg PO DAILY [facility] Last Admin: 07/25/17 08:16 Dose: 81 mg Dextrose (Dextrose 50% Inj) 0 ml IVP STAT PRN; Protocol PRN Reason: Hypoglycemia Protocol Docusate Sodium (Colace) 100 mg PO BID [facility] Last Admin: 07/24/17 08:28 Dose: Not Given Glucagon (Glucagen Diagnostic Kit) 0 mg IM STAT PRN; Protocol PRN Reason: Hypoglycemia Protocol Heparin Sodium (Porcine) (Heparin) 5,000 units SC Q8 [facility] PRN Reason: Protocol Last Admin: 07/25/17 08:21 Dose: Not Given Piperacillin Sod/Tazobactam (Sod 3.375 gm/ Sodium Chloride) 100 mls @ 100 mls/ hr IVPB Q6H [facility] PRN Reason: Protocol Last Admin: 07/25/17 03:24 Dose: 100 mls/hr Vancomycin HCl 1 gm/ Sodium (Chloride) 250 mls @ 166.667 mls/hr IVPB Q12 [facility] PRN Reason: Protocol Last Admin: 07/25/17 08:22 Dose: 166.667 mls/hr Ibuprofen (Motrin Tab) 600 mg PO Q6 PRN PRN Reason: Pain, moderate (4-7) Insulin Human Regular (Humulin R) 0 units SC ACHS [facility] PRN Reason: Protocol Last Admin: 07/25/17 06:30 Dose: Not Given Levothyroxine Sodium (Synthroid) 100 mcg PO DAILY [facility] Last Admin: 07/25/17 08:16 Dose: 100 mcg Losartan Potassium (Cozaar) 25 mg PO DAILY [facility] Last Admin: 07/25/17 08:21 Dose: 25 mg Metformin HCl (Glucophage) 500 mg PO BID [facility] Last Admin: 07/25/17 08:16 Dose: 500 mg Ondansetron HCl (Zofran Inj) 4 mg IVP Q6 PRN PRN Reason: Nausea/Vomiting Saccharomyces Boulardii (Florastor) 250 mg PO BID [facility] Last Admin: 07/25/17 08:21 Dose: 250 mg - Labs Labs: 07/25/17 05:30 07/25/17 05:30 PT 12.0 Seconds (9.8-13.1) 07/21/17 15:15 INR 1.1 (0.9-1.2) 07/21/17 15:15 APTT 29.7 Seconds (25.6-37.1) 07/21/17 15:15 - Constitutional Appears: Well, Non-toxic, No Acute Distress - Head Exam Head Exam: ATRAUMATIC, NORMAL INSPECTION, NORMOCEPHALIC - Eye Exam Eye Exam: EOMI, Normal appearance Pupil Exam: NORMAL ACCOMODATION, PERRL - ENT Exam ENT Exam: Mucous Membranes Moist, Normal Exam - Neck Exam Neck Exam: Full ROM, Normal Inspection. absent: Tenderness - Respiratory Exam Respiratory Exam: Clear to Ausculation Bilateral, NORMAL BREATHING PATTERN. absent: Rales, Rhonchi, Wheezes, Respiratory Distress - Cardiovascular Exam Cardiovascular Exam: REGULAR RHYTHM, +S1, +S2 - GI/Abdominal Exam GI & Abdominal Exam: Soft, Normal Bowel Sounds. absent: Tenderness Additional comments: TROY drain, draining decreasing serosanguinous fluid - Extremities Exam Extremities Exam: Full ROM, Normal Inspection. absent: Pedal Edema, Tenderness - Neurological Exam Neurological Exam: Alert, Awake, Oriented x3 - Psychiatric Exam Psychiatric exam: Normal Affect, Normal Mood - Skin Additional comments: Surgical incision noted to left abdomen with ruslan intact and no wound dehiscence noted. No drainage noted. Assessment and Plan (1) Leukocytosis Status: Acute (2) Diabetes mellitus Status: Chronic (3) Hypertension Status: Chronic - Assessment and Plan (Free Text) Assessment: 72 year old female PMHx NIDDM, HTN, NAFLD admitted for intraabdominal abscess vs. seroma 13 days s/p recurrent ventral hernia repair (1) Intrabdominal Abscess vs Seroma -POD#13 hernia repair (07/12/17) -CT abd pelvis (07/21/17): Likely postoperative abscess in inferior nondependent intraperitoneal space in the lower abdomen measuring 14.1 cm greatest dimension with prominent intraperitoneal gas likely related. Emphysematous changes seen involving the left cathy-abdominal wall. -Wound Cx: Pseudomonas sensitive to Zosyn -Collection Fluid: Pseudomonas sensitive to Zosyn -ID consulted, recs appreciated: -Continue Zosyn day 5/7 for pseudomonal intra-abdominal infx -Continue Vancomycin day #2 for coag neg staph bacteremia (likely a contaminant) until negative repeat blood cx -f/u repeat blood cultures: prelim reveals no growth after 48h -Surgery consulted: drain management, plan for removal of ruslan; drain may be moved upon discharge -Pain control: Ibuprofen 600mg PO q6h prn -Zofran PRN (2) NIDDM -Chronic, Controlled -Last HgbA1c 7.5(05/19/17) -C/W Metformin 500 mg BID -Low dose SSI/ACHS -Hypoglicemia protocol -Accuchecks ACHS (3) HTN -Chronic, controlled -Continue home med: Losartan 25mg PO QD (4) Hypothyroidism -stable, controlled -Continue home med: Synthroid 100mcg PO QD (5) NAFLD -Chronic -CT abd pelvis (07/21/17): Hepatic steatosis and questionble nodular surface; consider possible cirrhotic pattern -NAFLD fib score: -1.84(F0-F2)No fibrosis vs mild/mod fibrosis -ALT/AST elevation -Will continue to monitor (6) Prophylactic measures -Heparin 5000 units SQ q8h - patient has been refusing AMA since 07/23/17 -SCDs -Florastor BID PO
--- NOTE | 2017-07-25 11:53 | CP.PCM.PN ---
Subjective - Date & Time of Evaluation Date of Evaluation: 07/25/17 Time of Evaluation: 11:53 - Subjective Subjective: ID Note- Pt. seen and examined today. denies any fever or chills, denies any abd. pain. states her ruslan were removed by the surgical team.s till has drain in place. Objective - Vital Signs/Intake and Output Vital Signs (last 24 hours): Temp Pulse Resp BP Pulse Ox 98.4 F 74 18 115/76 94 L 07/25/17 08:20 07/25/17 08:21 07/25/17 08:20 07/25/17 08:21 07/25/17 08:20 - Medications Medications: Current Medications Acetaminophen (Tylenol 325mg Tab) 650 mg PO Q6 PRN PRN Reason: Fever >100.4 F Aspirin (Ecotrin) 81 mg PO DAILY [facility] Last Admin: 07/25/17 08:16 Dose: 81 mg Dextrose (Dextrose 50% Inj) 0 ml IVP STAT PRN; Protocol PRN Reason: Hypoglycemia Protocol Docusate Sodium (Colace) 100 mg PO BID [facility] Last Admin: 07/24/17 08:28 Dose: Not Given Glucagon (Glucagen Diagnostic Kit) 0 mg IM STAT PRN; Protocol PRN Reason: Hypoglycemia Protocol Heparin Sodium (Porcine) (Heparin) 5,000 units SC Q8 [facility] PRN Reason: Protocol Last Admin: 07/25/17 08:21 Dose: Not Given Vancomycin HCl 1 gm/ Sodium (Chloride) 250 mls @ 166.667 mls/hr IVPB Q12 [facility] PRN Reason: Protocol Last Admin: 07/25/17 08:22 Dose: 166.667 mls/hr Ciprofloxacin (Cipro 400mg/200ml Dsw) 400 mg in 200 mls @ 200 mls/hr IVPB Q12 [facility] PRN Reason: Protocol Ibuprofen (Motrin Tab) 600 mg PO Q6 PRN PRN Reason: Pain, moderate (4-7) Insulin Human Regular (Humulin R) 0 units SC ACHS [facility] PRN Reason: Protocol Last Admin: 07/25/17 06:30 Dose: Not Given Levothyroxine Sodium (Synthroid) 100 mcg PO DAILY [facility] Last Admin: 07/25/17 08:16 Dose: 100 mcg Losartan Potassium (Cozaar) 25 mg PO DAILY [facility] Last Admin: 07/25/17 08:21 Dose: 25 mg Metformin HCl (Glucophage) 500 mg PO BID [facility] Last Admin: 07/25/17 08:16 Dose: 500 mg Ondansetron HCl (Zofran Inj) 4 mg IVP Q6 PRN PRN Reason: Nausea/Vomiting Saccharomyces Boulardii (Florastor) 250 mg PO BID [facility] Last Admin: 07/25/17 08:21 Dose: 250 mg - Labs Labs: - Additional Findings Additional findings: - Constitutional Appears: No Acute Distress - Head Exam Head Exam: ATRAUMATIC - Eye Exam Eye Exam: EOMI, PERRL - ENT Exam ENT Exam: Normal Oropharynx - Neck Exam Neck exam: Positive for: Full Rom - Respiratory Exam Respiratory Exam: Clear to Auscultation Bilateral, NORMAL BREATHING PATTERN - Cardiovascular Exam Cardiovascular Exam: RRR, +S1, +S2 - GI/Abdominal Exam GI & Abdominal Exam: Soft Additional comments: mid abdominal vertical surgical site , ruslan no longer present, no discharge, minimal erythema much less right pigtail catheter in place draining sanguinous fluid positive bowel sounds minimal tenderness only around surgical site no rebound, no guarding - Extremities Exam no edema - Neurological Exam Neurological exam: Alert, Oriented x 3 Laboratory Results - last 72 hr 07/22/17 07/22/17 07/22/17 04:32 15:49 21:02 WBC RBC Hgb Hct MCV MCH MCHC RDW Plt Count MPV Neut % (Auto) Lymph % (Auto) [place] % (Auto) Eos % (Auto) Baso % (Auto) Neut # Lymph # [place] # Eos # Baso # Sodium Potassium Chloride Carbon Dioxide Anion Gap BUN Creatinine Est GFR ( Amer) Est GFR (Non-Af Amer) POC Glucose (mg/dL) 110 115 H Random Glucose Calcium Total Bilirubin Direct Bilirubin AST ALT Alkaline Phosphatase Total Protein Albumin Globulin Albumin/Globulin Ratio Procalcitonin 0.16 L 07/23/17 07/23/17 07/23/17 05:08 06:11 06:11 WBC 12.6 H RBC 3.99 Hgb 11.9 L Hct 35.5 MCV 89.0 MCH 29.8 MCHC 33.5 RDW 14.4 Plt Count 384 MPV Neut % (Auto) Lymph % (Auto) [place] % (Auto) Eos % (Auto) Baso % (Auto) Neut # Lymph # [place] # Eos # Baso # Sodium 140 Potassium 4.2 Chloride 104 Carbon Dioxide 26 Anion Gap 14 BUN 17 Creatinine 1.0 Est GFR ( Amer) > 60 Est GFR (Non-Af Amer) 54 POC Glucose (mg/dL) 112 H Random Glucose 127 H Calcium 7.8 L Total Bilirubin 0.6 Direct Bilirubin AST 61 H D ALT 68 H Alkaline Phosphatase 163 H Total Protein 6.7 Albumin 2.8 L Globulin 3.8 Albumin/Globulin Ratio 0.7 L Procalcitonin 07/23/17 07/23/17 07/23/17 11:18 15:51 21:11 WBC RBC Hgb Hct MCV MCH MCHC RDW Plt Count MPV Neut % (Auto) Lymph % (Auto) [place] % (Auto) Eos % (Auto) Baso % (Auto) Neut # Lymph # [place] # Eos # Baso # Sodium Potassium Chloride Carbon Dioxide Anion Gap BUN Creatinine Est GFR ( Amer) Est GFR (Non-Af Amer) POC Glucose (mg/dL) 112 H 142 H 102 Random Glucose Calcium Total Bilirubin Direct Bilirubin AST ALT Alkaline Phosphatase Total Protein Albumin Globulin Albumin/Globulin Ratio Procalcitonin 07/24/17 07/24/17 07/24/17 05:58 06:00 06:00 WBC 12.5 H RBC 4.02 Hgb 11.7 L Hct 35.7 MCV 88.9 MCH 29.0 MCHC 32.7 L RDW 14.4 Plt Count 381 MPV 8.7 Neut % (Auto) 67.3 Lymph % (Auto) 19.9 L [place] % (Auto) 6.7 Eos % (Auto) 5.2 H Baso % (Auto) 0.9 Neut # 8.4 H Lymph # 2.5 [place] # 0.8 Eos # 0.7 Baso # 0.1 Sodium Potassium Chloride Carbon Dioxide Anion Gap BUN Creatinine Est GFR ( Amer) Est GFR (Non-Af Amer) POC Glucose (mg/dL) 127 H Random Glucose Calcium Total Bilirubin 0.5 Direct Bilirubin 0.4 AST 50 H ALT 56 H Alkaline Phosphatase 143 H Total Protein 6.5 Albumin 2.9 L Globulin 3.6 Albumin/Globulin Ratio 0.8 L Procalcitonin 07/24/17 07/24/17 07/24/17 10:57 15:45 21:23 WBC RBC Hgb Hct MCV MCH MCHC RDW Plt Count MPV Neut % (Auto) Lymph % (Auto) [place] % (Auto) Eos % (Auto) Baso % (Auto) Neut # Lymph # [place] # Eos # Baso # Sodium Potassium Chloride Carbon Dioxide Anion Gap BUN Creatinine Est GFR ( Amer) Est GFR (Non-Af Amer) POC Glucose (mg/dL) 174 H 109 100 Random Glucose Calcium Total Bilirubin Direct Bilirubin AST ALT Alkaline Phosphatase Total Protein Albumin Globulin Albumin/Globulin Ratio Procalcitonin 07/25/17 07/25/17 07/25/17 05:28 05:30 05:30 WBC 12.5 H RBC 4.08 Hgb 12.0 Hct 36.3 MCV 88.9 MCH 29.3 MCHC 33.0 RDW 14.5 Plt Count 365 MPV Neut % (Auto) Lymph % (Auto) [place] % (Auto) Eos % (Auto) Baso % (Auto) Neut # Lymph # [place] # Eos # Baso # Sodium 139 Potassium 3.7 Chloride 104 Carbon Dioxide 26 Anion Gap 13 BUN 11 Creatinine 1.0 Est GFR ( Amer) > 60 Est GFR (Non-Af Amer) 54 POC Glucose (mg/dL) 118 H Random Glucose 117 H Calcium 7.9 L Total Bilirubin Direct Bilirubin AST ALT Alkaline Phosphatase Total Protein Albumin Globulin Albumin/Globulin Ratio Procalcitonin 07/25/17 11:05 WBC RBC Hgb Hct MCV MCH MCHC RDW Plt Count MPV Neut % (Auto) Lymph % (Auto) [place] % (Auto) Eos % (Auto) Baso % (Auto) Neut # Lymph # [place] # Eos # Baso # Sodium Potassium Chloride Carbon Dioxide Anion Gap BUN Creatinine Est GFR ( Amer) Est GFR (Non-Af Amer) POC Glucose (mg/dL) 173 H Random Glucose Calcium Total Bilirubin Direct Bilirubin AST ALT Alkaline Phosphatase Total Protein Albumin Globulin Albumin/Globulin Ratio Procalcitonin Microbiology 07/21/17 18:00 Blood-Venous S.aureus & Coag-Neg Staph PNA FISH - Final 07/21/17 18:00 Blood-Venous Blood Culture - Final Coagulase Neg Staphylococcus 07/21/17 18:00 Blood-Venous Gram Stain - Final 07/22/17 18:55 Blood-Venous Blood Culture - Preliminary NO GROWTH AFTER 48 HOURS 07/21/17 18:40 Blood-Venous Blood Culture - Preliminary NO GROWTH AFTER 3 DAYS 07/22/17 15:52 Abdominal Fluid Gram Stain - Final 07/22/17 15:52 Abdominal Fluid Body Fluid Culture - Final Pseudomonas Aeruginosa 07/21/17 15:40 Abdomen Gram Stain - Final 07/21/17 15:40 Abdomen Wound Culture - Final Pseudomonas Aeruginosa 07/21/17 15:15 Urine Urine Culture - Final Lactobacillus Species Assessment and Plan (1) Intraperitoneal abscess Status: Acute (2) Post op infection Status: Acute (3) Diabetes mellitus Status: Chronic (4) Leukocytosis Status: Acute - Assessment and Plan (Free Text) Assessment: A/P- 72 year old female with DM Ii, HTN, s/p ventral hernia repair admitted with intraperitoneal abscess . s/p IR drainage of the abscess and drain in place today. afebrile now. leukocytosis trending down abd wound cx- pseudomonas sens to carbapenems and zosyn abd fluid cx- pseudomonas blood cx- 1 of the 2 bottles coag neg staph( most likely contaminant) plan- day 5 of IV zosyn, however since still has minimal wbc and based on NICOLE more sens to cipro will switch to IV cipro today. to continue for 2 more days ov abx. for now advise 2 more days to complete total of 7 days of IV abx for pseudomonal intra-abdominal infx . drain management as per surgical team. also advise to continue with vancomycin for coag neg staph bacteremia ( eventhough most likey) contaminant would advise to be on IV vanco until we have repeat negative blood cx . continue for 2 more days. monitor wbc. once pt. is d/c home she can be d/c home on oral cipro for another 7 days. all above d/w patient and the surgical team .
[2017-07-25] MEDS: Ciprofloxacin 400mg/200ml D5W 400 MG/200 ML BAG IVPB SCH ×2 (12:41→21:56)
[2017-07-26 06:15] LABS: BASO # 0.1 K/uL (0.0-0.2); BASO % 0.8 % (0.0-2.0); EOS # 0.6 K/uL (0.0-0.7); EOS % 4.3 % (0.0-4.0); HEMOGLOBIN 12.8 g/dL (12.0-16.0); LYMPH # 2.3 K/uL (1.0-4.3); LYMPH % 16.6 % (20.0-40.0); MEAN CELL VOLUME 90.1 fl (81.0-99.0); MEAN CORPUSCULAR HEMOGLOBIN 30.4 pg (27.0-31.0); MEAN CORPUSCULAR HGB CONC 33.7 g/dL (33.0-37.0); MONO # 1.1 K/uL (0.0-0.8); NEUT # 9.6 K/uL (1.8-7.0); NEUT % 70.3 % (50.0-75.0); NRBC % 0.2 % (0.0-0.0); RBC 4.22 Mil/uL (3.80-5.20); RED CELL DISTRIBUTION WIDTH 14.6 % (11.5-14.5); WHITE BLOOD COUNT 13.6 K/uL (4.8-10.8)
[2017-07-26] MEDS: Insulin Regular 100 units/ml SC SCH ×4 (06:35→22:10)
--- NOTE | 2017-07-26 07:50 | CP.PCM.PN ---
Subjective - Date & Time of Evaluation Date of Evaluation: 07/26/17 Time of Evaluation: 07:15 - Subjective Subjective: General surgery progress note for Dr. Horvath-Sobeida Quintana, PGY-1 Pt S & E at bedside. Pt reports ab pain resolved, however now c/o of bloating/distention. Reports BM this AM. Denies N & V, tolerating a diet. Objective - Vital Signs/Intake and Output Vital Signs (last 24 hours): Temp Pulse Resp BP Pulse Ox 98.9 F 82 18 104/68 98 07/25/17 23:52 07/25/17 23:52 07/25/17 23:52 07/25/17 23:52 07/25/17 23:52 Intake and Output: 07/26/17 07/26/17 06:59 18:59 Output Total 30 Balance -30 - Medications Medications: Current Medications Acetaminophen (Tylenol 325mg Tab) 650 mg PO Q6 PRN PRN Reason: Fever >100.4 F Aspirin (Ecotrin) 81 mg PO DAILY [facility] Last Admin: 07/25/17 08:16 Dose: 81 mg Dextrose (Dextrose 50% Inj) 0 ml IVP STAT PRN; Protocol PRN Reason: Hypoglycemia Protocol Docusate Sodium (Colace) 100 mg PO BID [facility] Last Admin: 07/24/17 08:28 Dose: Not Given Glucagon (Glucagen Diagnostic Kit) 0 mg IM STAT PRN; Protocol PRN Reason: Hypoglycemia Protocol Heparin Sodium (Porcine) (Heparin) 5,000 units SC Q8 [facility] PRN Reason: Protocol Last Admin: 07/26/17 01:34 Dose: Not Given Vancomycin HCl 1 gm/ Sodium (Chloride) 250 mls @ 166.667 mls/hr IVPB Q12 [facility] PRN Reason: Protocol Last Admin: 07/25/17 20:13 Dose: 166.667 mls/hr Ciprofloxacin (Cipro 400mg/200ml Dsw) 400 mg in 200 mls @ 200 mls/hr IVPB Q12 [facility] PRN Reason: Protocol Last Admin: 07/25/17 21:56 Dose: 200 mls/hr Ibuprofen (Motrin Tab) 600 mg PO Q6 PRN PRN Reason: Pain, moderate (4-7) Insulin Human Regular (Humulin R) 0 units SC ACHS [facility] PRN Reason: Protocol Last Admin: 07/26/17 06:35 Dose: Not Given Levothyroxine Sodium (Synthroid) 100 mcg PO DAILY [facility] Last Admin: 07/25/17 08:16 Dose: 100 mcg Losartan Potassium (Cozaar) 25 mg PO DAILY [facility] Last Admin: 07/25/17 08:21 Dose: 25 mg Metformin HCl (Glucophage) 500 mg PO BID [facility] Last Admin: 07/25/17 16:54 Dose: 500 mg Ondansetron HCl (Zofran Inj) 4 mg IVP Q6 PRN PRN Reason: Nausea/Vomiting Saccharomyces Boulardii (Florastor) 250 mg PO BID [facility] Last Admin: 07/25/17 16:51 Dose: 250 mg - Labs Labs: 07/26/17 05:50 07/25/17 05:30 PT 12.0 Seconds (9.8-13.1) 07/21/17 15:15 INR 1.1 (0.9-1.2) 07/21/17 15:15 APTT 29.7 Seconds (25.6-37.1) 07/21/17 15:15 - Constitutional Appears: Non-toxic, No Acute Distress - Head Exam Head Exam: ATRAUMATIC, NORMAL INSPECTION, NORMOCEPHALIC - Eye Exam Eye Exam: EOMI, Normal appearance - ENT Exam ENT Exam: Mucous Membranes Moist, Normal Exam - Neck Exam Neck Exam: Full ROM, Normal Inspection - Respiratory Exam Respiratory Exam: NORMAL BREATHING PATTERN - Cardiovascular Exam Cardiovascular Exam: REGULAR RHYTHM, +S1, +S2 - GI/Abdominal Exam GI & Abdominal Exam: Distended, Soft. absent: Firm, Guarding, Rigid, Tenderness Additional comments: Midline incision well healed, slightly erythematous RLQ drain with scant serous output - Extremities Exam Extremities Exam: Normal Inspection - Neurological Exam Neurological Exam: Alert, Awake, CN II-XII Intact, Oriented x3 - Psychiatric Exam Psychiatric exam: Normal Affect, Normal Mood - Skin Skin Exam: Dry, Intact, Normal Color, Warm Assessment and Plan - Assessment and Plan (Free Text) Assessment: 72F with abdominal wall fluid collection s/p ventral hernia repair - taken for IR drainage on 07/22 Plan: cont zosyn x 7 days - will be completed on 07/27 cont regular diet OOB ambulate pain control prn Simethicone for ab distention Continues with IR drain no further surgical intervention needed just cont abx for now DW attending Lilian, PGY-1
[2017-07-26] MEDS ORDERED: Simethicone 80 mg Chewtab PO PRN (07:54)
--- NOTE | 2017-07-26 08:21 | CP.PCM.PN ---
Subjective - Date & Time of Evaluation Date of Evaluation: 07/26/17 Time of Evaluation: 07:30 - Subjective Subjective: Family Medicine 72 year old female seen and evaluated 4 days s/p IR drainage intra-abdominal fluid collection. Patient endorses that she did not sleep last night due to stabbing/burning sensation in her lower abdomen/right flank, states it began "soon after taking a new pill I've never had before." No issues with incision from recent surgery. Also complains of increased abdominal distention. Reports increased urinary frequency since yesterday afternoon, denies burning with urination. Had 1 BM after dinner yesterday, passing flatus. Tolerating diet. Denies nausea, vomiting, fever, chills, palpitations, chest pain, dizziness, SOB , bilateral calf pain. Objective - Vital Signs/Intake and Output Vital Signs (last 24 hours): Temp Pulse Resp BP Pulse Ox 97.9 F 79 20 122/78 95 07/26/17 08:08 07/26/17 08:08 07/26/17 08:08 07/26/17 08:08 07/26/17 08:08 Intake and Output: 07/26/17 07/26/17 06:59 18:59 Output Total 30 Balance -30 - Medications Medications: Current Medications Acetaminophen (Tylenol 325mg Tab) 650 mg PO Q6 PRN PRN Reason: Fever >100.4 F Aspirin (Ecotrin) 81 mg PO DAILY [facility] Last Admin: 07/25/17 08:16 Dose: 81 mg Dextrose (Dextrose 50% Inj) 0 ml IVP STAT PRN; Protocol PRN Reason: Hypoglycemia Protocol Docusate Sodium (Colace) 100 mg PO BID [facility] Last Admin: 07/24/17 08:28 Dose: Not Given Glucagon (Glucagen Diagnostic Kit) 0 mg IM STAT PRN; Protocol PRN Reason: Hypoglycemia Protocol Heparin Sodium (Porcine) (Heparin) 5,000 units SC Q8 RADHA PRN Reason: Protocol Last Admin: 07/26/17 01:34 Dose: Not Given Vancomycin HCl 1 gm/ Sodium (Chloride) 250 mls @ 166.667 mls/hr IVPB Q12 RADHA PRN Reason: Protocol Last Admin: 07/25/17 20:13 Dose: 166.667 mls/hr Ciprofloxacin (Cipro 400mg/200ml Dsw) 400 mg in 200 mls @ 200 mls/hr IVPB Q12 RADHA PRN Reason: Protocol Last Admin: 07/25/17 21:56 Dose: 200 mls/hr Ibuprofen (Motrin Tab) 600 mg PO Q6 PRN PRN Reason: Pain, moderate (4-7) Insulin Human Regular (Humulin R) 0 units SC ACHS RADHA PRN Reason: Protocol Last Admin: 07/26/17 06:35 Dose: Not Given Levothyroxine Sodium (Synthroid) 100 mcg PO DAILY [facility] Last Admin: 07/25/17 08:16 Dose: 100 mcg Losartan Potassium (Cozaar) 25 mg PO DAILY [facility] Last Admin: 07/25/17 08:21 Dose: 25 mg Metformin HCl (Glucophage) 500 mg PO BID [facility] Last Admin: 07/25/17 16:54 Dose: 500 mg Ondansetron HCl (Zofran Inj) 4 mg IVP Q6 PRN PRN Reason: Nausea/Vomiting Saccharomyces Boulardii (Florastor) 250 mg PO BID [facility] Last Admin: 07/25/17 16:51 Dose: 250 mg Simethicone (Mylicon Chew Tab) 80 mg PO TID PRN PRN Reason: Flatulence - Labs Labs: 07/26/17 05:50 07/25/17 05:30 PT 12.0 Seconds (9.8-13.1) 07/21/17 15:15 INR 1.1 (0.9-1.2) 07/21/17 15:15 APTT 29.7 Seconds (25.6-37.1) 07/21/17 15:15 - Constitutional Appears: Well, Non-toxic, No Acute Distress - Head Exam Head Exam: ATRAUMATIC, NORMAL INSPECTION, NORMOCEPHALIC - Eye Exam Eye Exam: EOMI, Normal appearance Pupil Exam: NORMAL ACCOMODATION, PERRL - ENT Exam ENT Exam: Mucous Membranes Moist, Normal Exam - Neck Exam Neck Exam: Full ROM, Normal Inspection. absent: Tenderness - Respiratory Exam Respiratory Exam: Clear to Ausculation Bilateral, NORMAL BREATHING PATTERN. absent: Rales, Rhonchi, Wheezes, Respiratory Distress - Cardiovascular Exam Cardiovascular Exam: REGULAR RHYTHM, +S1, +S2 - GI/Abdominal Exam GI & Abdominal Exam: Distended, Soft, Tenderness (RLQ, R flank), Normal Bowel Sounds Additional comments: Incision noted to right side of abdomen with ruslan removed, periwound erythema noted. Scabbing noted to inferior aspect of incision. No drainage noted. Drain and with overlying dressing in place, draining mild serosanguinous fluid - Extremities Exam Extremities Exam: Full ROM, Normal Inspection. absent: Calf Tenderness, Pedal Edema, Tenderness Additional comments: No palpable cord b/l LE No pain on palpation calf b/l - Neurological Exam Neurological Exam: Alert, Awake, Oriented x3 - Psychiatric Exam Psychiatric exam: Normal Affect, Normal Mood - Skin Skin Exam: Erythema (Erythema around incision), Normal Color Assessment and Plan (1) Leukocytosis Status: Acute (2) Diabetes mellitus Status: Chronic (3) Hypertension Status: Chronic - Assessment and Plan (Free Text) Assessment: 72 year old female PMHx NIDDM, HTN, NAFLD admitted for intraabdominal abscess vs. seroma 14 days s/p recurrent ventral hernia repair (1) Intrabdominal Abscess vs Seroma -POD#14 hernia repair (07/12/17) -POD#4 US guided placement of a 10 fr pigtail drainage catheter within the abscess (07/22/17) -CT abd pelvis (07/21/17): Likely postoperative abscess in inferior nondependent intraperitoneal space in the lower abdomen measuring 14.1 cm greatest dimension with prominent intraperitoneal gas likely related. Emphysematous changes seen involving the left cathy-abdominal wall. -Wound Cx: Pseudomonas sensitive to Zosyn -Collection Fluid: Pseudomonas sensitive to Zosyn -Blood Cx #1 (07/21/17): Coagulase neg staphylococcus (most likely a contaminant) -Blood Cx #2 (07/21/17): No growth -ID consulted, recs appreciated: -Discontinue Zosyn for pseudomonal intra-abdominal infx; switch to IV Ciprofloxacin to continue for 2 more days (day 6/7) -Continue Vancomycin day #3 for coag neg staph bacteremia (likely a contaminant) until negative repeat blood cx -Prelim repeat blood cultures (07/22/17): no growth after 3 days -Patient may be discharged home with PO Ciprofloxacin x7 days -Surgery consulted for drain management; drain may be moved upon discharge -Simethicone for abdominal distention -Pain control: Ibuprofen 600mg PO q6h prn -Zofran PRN -PT/OT - patient refusing; patient ambulating w/o issues -afebrile; WBC increasing 13.6 today (yesterday, 07/26/17 @ 12.5) -CXR (07/26/17): The right hemidiaphragm is elevated by gas in the peritoneal space in the abdomen. Remainder of the chest radiograph is unremarkable. -Discussed with surgery, unremarkable -f/u UA, UCx (2) NIDDM -Chronic, Controlled -Last HgbA1c 7.5(05/19/17) -C/W Metformin 500 mg BID -Low dose SSI/ACHS -Hypoglicemia protocol -Accuchecks ACHS -Diabetic diet (3) HTN -Chronic, controlled -Continue home med: Losartan 25mg PO QD (4) Hypothyroidism -stable, controlled -Continue home med: Synthroid 100mcg PO QD (5) HLD -Start Atorvastatin 20mg PO QD (6) NAFLD -Chronic -CT abd pelvis (07/21/17): Hepatic steatosis and questionble nodular surface; consider possible cirrhotic pattern -NAFLD fib score: -1.84(F0-F2)No fibrosis vs mild/mod fibrosis -ALT/AST elevation -Will continue to monitor (7) Prophylactic measures -Heparin 5000 units SQ q8h - patient has been refusing AMA since 07/23/17 -SCDs -Florastor BID PO (8) Drains/Lines -10 fr pigtail drainage catheter w/TROY drain and drain bag -TROY drained ~25cc yesterday evening 07/25/17 -55cc drainage so far today
[2017-07-26] MEDS: Saccharomyces Boulardi 250 mg Cap PO SCH ×2 (08:43→17:25)
[2017-07-26] MEDS: Levothyroxine 100 MCG TAB PO SCH (08:44)
[2017-07-26 08:48] LABS: BLOOD UREA NITROGEN 11 mg/dl (7-17); CALCIUM 8.8 mg/dL (8.4-10.2); GFR AFRICAN-AMERICAN > 60; GFR NON-AFRICAN AMERICAN > 60
[2017-07-26] MEDS: Ciprofloxacin 400mg/200ml D5W 400 MG/200 ML BAG IVPB SCH ×2 (08:49→23:07)
--- NOTE | 2017-07-26 11:30 | RAD ---
HISTORY: increased wbc COMPARISON: No prior. TECHNIQUE: Chest PA and lateral FINDINGS: LUNGS: No active pulmonary disease. Elevated right hemidiaphragm from air in the intraperitoneal space. PLEURA: No significant pleural effusion identified. No pneumothorax apparent. CARDIOVASCULAR: Normal. OSSEOUS STRUCTURES: No significant abnormalities. VISUALIZED UPPER ABDOMEN: Prominent free intrarenal gas is appreciated which may be a function of peritoneal drainage catheter malfunction. Clinically correlate further. The outer free air in the upper abdomen is increased from 07/21/2017 prior chest radiograph as well as prior CT performed on the same date. OTHER FINDINGS: None. IMPRESSION: The right hemidiaphragm is elevated by gas in the peritoneal space in the abdomen. Remainder the chest radiograph is unremarkable. Clinically correlate as to whether or not this may be a function of the drainage catheter or additional perforated viscus. Findings discussed with Nurse Grant 07/26/2017 11:21 a.m. with written down and read back verification.
--- NOTE | 2017-07-26 12:45 | CT ---
PROCEDURE: Date of procedure: Procedure: 1. Abdominal wall abscess drainage with ultrasound guidance, CPT 85978 Medications: The patient received IV sedation administered by anesthesiologist HISTORY: Anterior abdominal wall abscess TECHNIQUE: Following informed consent procedure time-out, limited ultrasound performed the patient showed a large complex collection deep to the surgical incision scar. After the patient abdomen was prepped and draped in the usual sterile fashion, the skin was anesthetized with 1 % lidocaine. A 5 [place] Yueh catheter was advanced under ultrasound guidance into the collection. On return of purulent drainage, an 035 guidewire was advanced through the Yueh catheter. A 10 [place] drainage catheter was then advanced over the wire and formed within the abscess. 10 cubic centimeters of slight serosanguineous drainage from wound was sent for culture and sensitivity. The catheter was secured the patient's skin. A dressing was applied. IMPRESSION: Ultrasound-guided abscess drainage with placement of a 10 fr [place] drainage catheter with abscess. The fluid specimen was sent for culture sensitivity.
[2017-07-26 15:45] LABS: SQUAMOUS EPITHIAL 1 /hpf (0-5); URINE BACTERIA RARE (<OCC); URINE BILIRUBIN NEGATIVE (NEGATIVE); URINE BLOOD NEGATIVE (NEGATIVE); URINE CLARITY CLEAR (Clear); URINE COLOR STRAW (YELLOW); URINE GLUCOSE (UA) NEG (Normal); URINE LEUKOCYTE ESTERASE NEG Leu/uL (Negative); URINE NITRATE NEGATIVE (NEGATIVE); URINE PROTEIN NEGATIVE (NEGATIVE); URINE UROBILINOGEN 0.2-1.0 mg/dL (0.2-1.0)
[2017-07-27] MEDS: Insulin Regular 100 units/ml SC SCH ×2 (06:33→12:35)
[2017-07-27 08:29] VITALS: BP 118/76; PULSE 74; RESP 20; TEMP 98.7; O2SAT 92
[2017-07-27] MEDS: Ciprofloxacin 400mg/200ml D5W 400 MG/200 ML BAG IVPB SCH (08:40)
[2017-07-27] MEDS: Levothyroxine 100 MCG TAB PO SCH (08:40)
[2017-07-27] MEDS: Saccharomyces Boulardi 250 mg Cap PO SCH (08:43)
--- NOTE | 2017-07-27 13:37 | CP.PCM.DIS ---
Provider - Provider Date of Admission: 07/21/17 18:20 Attending physician: Zain Poe MD Primary care physician: [facility] Consults: [facility] Surgery - Dr. Horvath Time Spent in preparation of Discharge (in minutes): 30 Diagnosis - Discharge Diagnosis (1) Leukocytosis Status: Acute (2) Diabetes mellitus Status: Chronic Priority: Medium (3) Hypertension Status: Chronic Priority: Low Hospital Course - Lab Results Lab Results: Micro Results 07/26/17 15:38 Urine,Clean Catch Urine Culture - Final No Growth (<1,000 CFU/ML) 07/22/17 18:55 Blood-Venous Blood Culture - Preliminary NO GROWTH AFTER 4 DAYS 07/21/17 18:40 Blood-Venous Blood Culture - Final NO GROWTH AFTER 5 DAYS 07/21/17 18:40 Blood-Venous Gram Stain - Final TEST NOT PERFORMED 07/21/17 18:00 Blood-Venous S.aureus & Coag-Neg Staph PNA FISH - Final 07/21/17 18:00 Blood-Venous Blood Culture - Final Coagulase Neg Staphylococcus 07/21/17 18:00 Blood-Venous Gram Stain - Final 07/22/17 15:52 Abdominal Fluid Gram Stain - Final 07/22/17 15:52 Abdominal Fluid Body Fluid Culture - Final Pseudomonas Aeruginosa 07/21/17 15:40 Abdomen Gram Stain - Final 07/21/17 15:40 Abdomen Wound Culture - Final Pseudomonas Aeruginosa 07/21/17 15:15 Urine Urine Culture - Final Lactobacillus Species Most Recent Lab Values WBC 13.6 K/uL (4.8-10.8) H 07/26/17 05:50 RBC 4.22 Mil/uL (3.80-5.20) 07/26/17 05:50 Hgb 12.8 g/dL (12.0-16.0) 07/26/17 05:50 Hct 38.0 % (34.0-47.0) 07/26/17 05:50 MCV 90.1 fl (81.0-99.0) 07/26/17 05:50 MCH 30.4 pg (27.0-31.0) 07/26/17 05:50 MCHC 33.7 g/dL (33.0-37.0) 07/26/17 05:50 RDW 14.6 % (11.5-14.5) H 07/26/17 05:50 Plt Count 398 K/uL (130-400) 07/26/17 05:50 MPV 9.0 fl (7.2-11.7) 07/26/17 05:50 Neut % (Auto) 70.3 % (50.0-75.0) 07/26/17 05:50 Lymph % (Auto) 16.6 % (20.0-40.0) L 07/26/17 05:50 [place] % (Auto) 8.0 % (0.0-10.0) 07/26/17 05:50 Eos % (Auto) 4.3 % (0.0-4.0) H 07/26/17 05:50 Baso % (Auto) 0.8 % (0.0-2.0) 07/26/17 05:50 Neut # 9.6 K/uL (1.8-7.0) H 07/26/17 05:50 Lymph # 2.3 K/uL (1.0-4.3) 07/26/17 05:50 [place] # 1.1 K/uL (0.0-0.8) H 07/26/17 05:50 Eos # 0.6 K/uL (0.0-0.7) 07/26/17 05:50 Baso # 0.1 K/uL (0.0-0.2) 07/26/17 05:50 PT 12.0 Seconds (9.8-13.1) 07/21/17 15:15 INR 1.1 (0.9-1.2) 07/21/17 15:15 APTT 29.7 Seconds (25.6-37.1) 07/21/17 15:15 pO2 15 mm/Hg (30-55) L 07/21/17 20:23 VBG pH 7.44 (7.32-7.43) H 07/21/17 20:23 VBG pCO2 40 mmHg (40-60) 07/21/17 20:23 VBG HCO3 25.0 mmol/L 07/21/17 20:23 VBG Total CO2 28.4 mmol/L (22-28) H 07/21/17 20:23 VBG O2 Sat (Calc) 27.1 % (40-65) L 07/21/17 20:23 VBG Base Excess 2.8 mmol/L (0.0-2.0) H 07/21/17 20:23 VBG Potassium 4.1 mmol/L (3.6-5.2) 07/21/17 20:23 Sodium 135.0 mmol/L (132-148) 07/21/17 20:23 Chloride 101.0 mmol/L (98-107) 07/21/17 20:23 Glucose 127 mg/dL (65-105) H 07/21/17 20:23 Lactate 1.7 mmol/L (0.7-2.1) 07/21/17 20:23 FiO2 21.0 % 07/21/17 20:23 Crit Value Called To Andrew ponce 07/21/17 15:45 Crit Value Called By 23 07/21/17 15:45 Crit Value Read Back Y 07/21/17 15:45 Blood Gas Notified Time 1550 07/21/17 15:45 Sodium 139 mmol/l (132-148) 07/26/17 08:15 Potassium 3.8 MMOL/L (3.6-5.0) 07/26/17 08:15 Chloride 103 mmol/L (98-107) 07/26/17 08:15 Carbon Dioxide 26 mmol/L (22-30) 07/26/17 08:15 Anion Gap 14 (10-20) 07/26/17 08:15 BUN 11 mg/dl (7-17) 07/26/17 08:15 Creatinine 0.9 mg/dl (0.7-1.2) 07/26/17 08:15 Est GFR ( Amer) > 60 07/26/17 08:15 Est GFR (Non-Af Amer) > 60 07/26/17 08:15 POC Glucose (mg/dL) 163 mg/dL (65-110) H 07/27/17 10:54 Random Glucose 126 mg/dL (65-105) H 07/26/17 08:15 Calcium 8.8 mg/dL (8.4-10.2) 07/26/17 08:15 Total Bilirubin 0.5 mg/dl (0.2-1.3) 07/24/17 06:00 Direct Bilirubin 0.4 mg/ml (0.0-0.4) 07/24/17 06:00 AST 50 U/L (14-36) H 07/24/17 06:00 ALT 56 U/L (9-52) H 07/24/17 06:00 Alkaline Phosphatase 143 U/L (38-126) H 07/24/17 06:00 Total Protein 6.5 G/DL (6.3-8.2) 07/24/17 06:00 Albumin 2.9 g/dL (3.5-5.0) L 07/24/17 06:00 Globulin 3.6 gm/dL (2.2-3.9) 07/24/17 06:00 Albumin/Globulin Ratio 0.8 (1.0-2.1) L 07/24/17 06:00 Procalcitonin 0.16 NG/ML (0.19-0.49) L 07/22/17 04:32 Venous Blood Potassium 4.1 mmol/L (3.6-5.2) 07/21/17 20:23 Urine Color Straw (YELLOW) 07/26/17 15:38 Urine Clarity Clear (Clear) 07/26/17 15:38 Urine pH 6.0 (5.0-8.0) 07/26/17 15:38 Ur Specific [place] 1.008 (1.003-1.030) 07/26/17 15:38 Urine Protein Negative mg/dL (NEGATIVE) 07/26/17 15:38 Urine Glucose (UA) Neg mg/dL (Normal) 07/26/17 15:38 Urine Ketones Negative mg/dL (NEGATIVE) 07/26/17 15:38 Urine Blood Negative (NEGATIVE) 07/26/17 15:38 Urine Nitrate Negative (NEGATIVE) 07/26/17 15:38 Urine Bilirubin Negative (NEGATIVE) 07/26/17 15:38 Urine Urobilinogen 0.2-1.0 mg/dL (0.2-1.0) 07/26/17 15:38 Ur Leukocyte Esterase Neg Jose/uL (Negative) 07/26/17 15:38 Urine RBC (Auto) < 1 /hpf (0-3) 07/26/17 15:38 Urine Microscopic WBC < 1 /hpf (0-5) 07/26/17 15:38 Ur Squamous Epith Cells 1 /hpf (0-5) 07/26/17 15:38 Urine Bacteria Rare (<OCC) 07/26/17 15:38 - Hospital Course Hospital Course: 72 year old female PMHx NIDDM, HTN, NAFLD admitted for intraabdominal abscess. IR was consulted and patient was taken for US guided placement of a 10 fr pigtail drainage catheter within the abscess. Intra-abdominal cultures were obtained which revealed growth of pseudomonas aeruginosa sensitive to Zosyn and Ciprofloxacin; per ID patient was placed on Zosyn 3.375g IV. Patient was started on Atorvastatin 20mg PO HS. Postoperative course was unremarkable, and patient is stable for discharge home. Patient will be discharged with Ciprofloxacin 500mg PO QD x7days, also Rx for CBC, which is to be obtained prior to [facility] appointment. F/U in surgery clinic within 1 week of discharge; informed by surgery that patient needs to call for a follow-up appointment. F/U in [facility] on 08/03/17 @ 11:00AM with Dr. Faust. Discharge Exam - Head Exam Head Exam: ATRAUMATIC, NORMAL INSPECTION, NORMOCEPHALIC - Eye Exam Eye Exam: EOMI, Normal appearance Pupil Exam: NORMAL ACCOMODATION, PERRL - ENT Exam ENT Exam: Mucous Membranes Moist, Normal Exam - Neck Exam Neck exam: Full Rom, Normal Inspection - Respiratory Exam Respiratory Exam: Clear to PA & Lateral, NORMAL BREATHING PATTERN, UNREMARKABLE. absent: Rales, Rhonchi, Wheezes, Respiratory Distress - Cardiovascular Exam Cardiovascular Exam: REGULAR RHYTHM, +S1, +S2. absent: Gallop, JVD, Rubs - GI/Abdominal Exam GI & Abdominal Exam: Distended, Normal Bowel Sounds, Tenderness (Mild tenderness to palpation RLQ) Additional comments: Incision noted to right side of abdomen with ruslan removed, periwound erythema noted. Scabbing noted to inferior aspect of incision. No drainage noted to incision. - Extremities Exam Extremities exam: full ROM, normal capillary refill Additional comments: No palpable cord b/l LE No pain on palpation calf b/l - Back Exam Back exam: NORMAL INSPECTION. absent: paraspinal tenderness, tenderness, vertebral tenderness - Neurological Exam Neurological exam: Alert, Oriented x3 - Skin Skin Exam: Dry, Intact, Normal Color Discharge Plan - Discharge Medications Prescriptions: Aspirin [Adult Low Dose Aspirin EC] 81 mg PO DAILY 30 Days #30 tablet. Atorvastatin [Lipitor] 20 mg PO HS 30 Days #30 tab Ciprofloxacin HCl [Cipro] 500 mg PO DAILY 7 Days #7 tablet Levothyroxine [Synthroid] 100 mcg PO DAILY 30 Days #30 tab Losartan [Cozaar] 25 mg PO DAILY #30 tab metFORMIN [glucOPHAGE] 500 mg PO BID 30 Days #30 tab - Follow Up Plan Condition: GOOD Disposition: HOME/ ROUTINE Patient education suggested?: Yes Instructions: Abscess (GEN), Leukocytosis (DC), Leukocytosis (GEN), Hypertension (DC), Hypertension (GEN), Hypothyroidism (GEN), Hyperlipidemia (GEN ), Non-Alcoholic Fatty Liver Disease (GEN) Additional Instructions: Follow up in [facility] on 08/03/17 @ 11:00AM with Dr. Faust. Please bring your discharge packet. Rx CBC, please obtain prior to follow up appointment. Please follow up in surgery clinic with Dr. Horvath within 1 week of discharge. Referrals: Herman Horvath MD [Staff Provider] - 1 Week (Please call surgery scheduling for appointment within 1 week of discharge.)
--- NOTE | 2017-07-27 14:05 | CP.PCM.PCO ---
Physician Communication Note - Physician Communication Note Physician Communication Note: drain removed. clear for d/c. f/u next week in Dr Alexandru dave
--- NOTE | 2017-07-29 12:31 | PQF GENQUE ---
intra-abdominal abscess is documented in medical record however operative report by Dr. Blanca documented abdominal wall abscess. Please clarify after study site of abscess. This form is a permanent part of the medical record Clarification of your documentation is requested to better reflect the severity of illness and intensity of treatment of your patient. Indicators present [] Specify: []see below based on CT scan findings [] Specify: [] [] Specify: [] [] Specify: [] Location in the medical record that reflects the above clinical findings: [] Treatment Provided: [] PHYSICIAN'S RESPONSE Based on your medical judgment of the clinical indicators outlined above please clarify the following: [] Practitioner response Dx should be INTRAPERITONEAL ABSCESS [] If unable to determine, please check the box, sign and date. Present On Admission (POA) Indicator: [] Present at the time of admission [] Not present at the time of admission [] Clinically Undetermined In responding to this query, please exercise your independent professional judgment. The fact that a question is asked does not imply that any particular answer is desired or expected. Thank you for your clarification on this documentation. 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
== END 2017-07-27 15:30 | disposition home or self-care (01) | DRG 580 ==
LOC: H.ER 13:44 → H.ERHOLD 18:20 → H.TEL 21:05 → H.MEDSURG1 07-23 22:31
PROVIDERS: ADMIT Family Medicine; ATTEND Family Medicine
PROC: 0W9F30Z Drainage of Abdominal Wall with Drainage Device, Percutaneous Approach (ICD-10-PCS; principal; 2017-07-22 12:30)
DX: T81.4XXA Infection following a procedure, initial encounter (principal); K65.1 Peritoneal abscess; L02.211 Cutaneous abscess of abdominal wall; E66.01 Morbid (severe) obesity due to excess calories; L76.34 Postprocedural seroma of skin and subcutaneous tissue following other procedure; B96.5 Pseudomonas (aeruginosa) (mallei) (pseudomallei) as the cause of diseases classified elsewhere; E11.9 Type 2 diabetes mellitus without complications; E03.9 Hypothyroidism, unspecified; E78.00 Pure hypercholesterolemia, unspecified; I10 Essential (primary) hypertension; Z87.891 Personal history of nicotine dependence; M19.90 Unspecified osteoarthritis, unspecified site; F32.9 Major depressive disorder, single episode, unspecified; Z68.35 Body mass index [BMI] 35.0-35.9, adult; K76.0 Fatty (change of) liver, not elsewhere classified; Y83.8 Other surgical procedures as the cause of abnormal reaction of the patient, or of later complication, without mention of misadventure at the time of the procedure; E78.5 Hyperlipidemia, unspecified

== ENCOUNTER 2017-08-29 14:56 | Observation (INO) | payer SELFPAY ==
[2017-08-29 14:57] VITALS: BMI 40.2
[2017-08-29] MEDS ORDERED: Iohexol 240 (50 ml) PO ONE (16:13)
--- NOTE | 2017-08-29 16:45 | ED PDOC ---
HPI: Abdomen Time Seen by Provider: 08/29/17 15:34 Chief Complaint (Nursing): Abdominal Pain Chief Complaint (Provider): Abdominal Pain History Per: Patient History/Exam Limitations: no limitations Onset/Duration Of Symptoms: Days (three days ago), Worse Since Current Symptoms Are (Timing): Constant Location Of Pain/Discomfort: Diffuse Quality Of Discomfort: "Pain" Associated Symptoms: Nausea, Vomiting, Other. denies: Fever, Diarrhea, Chest Pain, Urinary Symptoms Additional Complaint(s): 72 y/o female with a past medical history of hypertension, hypercholesterolemia , and diabetes presents to the ED complaining of constant diffuse abdominal pain onset three days ago. Reports of associated symptoms of nausea, little vomiting and loose stool; but no diarrhea. The patient says the pain has worsened today and it is all over her belly. Denies of fever, chest pain, urinary problems or bloody stool. Patient also has had a colon surgery in the past and two hernia repairs by Dr. Cope. PMD: Leonardo Faust Past Medical History Reviewed: Historical Data, Nursing Documentation, Vital Signs Vital Signs: Last Vital Signs Temp 98.3 F 08/30/17 07:59 Pulse 74 08/30/17 07:59 Resp 20 08/30/17 07:59 BP 111/70 08/30/17 07:59 Pulse Ox 95 08/30/17 07:59 - Medical History PMH: Arthritis, Depression, Diabetes, HTN, Hypercholesterolemia, Hyperthyroidism , Hypothyroidism Denies: HIV, Chronic Kidney Disease - Surgical History Surgical History: Hernia Repair (x2) Other surgeries: Colon Surgery (x1) - Family History Family History: States: No Known Family Hx - Social History Current smoker - smoking cessation education provided: No Alcohol: None Drugs: Denies - Immunization History Hx Tetanus Toxoid Vaccination: No Hx Influenza Vaccination: No Hx Pneumococcal Vaccination: No - Home Medications Home Medications: Ambulatory Orders Medication Instructions Recorded Levothyroxine [Synthroid] 100 mcg PO DAILY 30 Days #30 tab 07/27/17 Losartan [Cozaar] 25 mg PO DAILY #30 tab 07/27/17 Lovastatin 40 mg PO HS 08/29/17 metFORMIN [glucOPHAGE] 1,000 mg PO BID 08/29/17 metFORMIN ER [glucoPHAGE XR] 500 mg PO DAILY 30 Days #30 ter 08/30/17 - Allergies Allergies/Adverse Reactions: Allergies Allergy/AdvReac Type Severity Reaction Status Date / Time No Known Allergies Allergy Verified 07/21/17 13:47 Review of Systems ROS Statement: Except As Marked, All Systems Reviewed And Found Negative Constitutional: Negative for: Fever Cardiovascular: Negative for: Chest Pain Gastrointestinal: Positive for: Nausea, Vomiting, Abdominal Pain. Negative for : Diarrhea Genitourinary Female: Negative for: Frequency, Other (bloody stool) Physical Exam - Reviewed Nursing Documentation Reviewed: Yes Vital Signs Reviewed: Yes - Physical Exam Appears: Positive for: Well, Non-toxic, No Acute Distress Head Exam: Positive for: ATRAUMATIC, NORMAL INSPECTION, NORMOCEPHALIC Skin: Positive for: Normal Color, Warm, Dry Eye Exam: Positive for: EOMI, Normal appearance, PERRL ENT: Positive for: Normal ENT Inspection Neck: Positive for: Normal, Painless ROM, Supple. Negative for: Decreased ROM Cardiovascular/Chest: Positive for: Regular Rate, Rhythm. Negative for: Murmur Respiratory: Positive for: Normal Breath Sounds. Negative for: Decreased Breath Sounds, Accessory Muscle Use, Respiratory Distress Gastrointestinal/Abdominal: Positive for: Soft, Tenderness (Diffuse abdomen), Distended (mildly), Other (obese abdomen). Negative for: Guarding, Rebound Back: Positive for: Normal Inspection. Negative for: L CVA Tenderness, R CVA Tenderness Extremity: Positive for: Normal ROM. Negative for: Tenderness, Pedal Edema, Deformity Neurologic/Psych: Positive for: Alert, Oriented (x3), Gait - Laboratory Results Result Diagrams: 08/29/17 16:53 08/29/17 16:53 - ECG O2 Sat by Pulse Oximetry: 99 (RA) Pulse Ox Interpretation: Normal Medical Decision Making Medical Decision Making: Time: 16:13 Initial Impression: Abdominal Pain Differential Diagnosis includes but is not limited to: Acute pancreatitis, Appendicitis, Colitis, Diverticulitis Initial Plan: --Abdominal pelvis PO & IV Contrast [CT] --EKG --CMP --Lipase --CBC --Omnipaque 50ml --Reevaluation Time: 19:00 Patient to be signed out to Dr. Mckeon pending Abdominal pelvis PO & IV Contrast [CT] and reevaluation. Documented by Wesly Londono acting as a scribe for Randell Knowles MD. All medical record entries made by the Scribe were at my direction and personally dictated by me. I have reviewed the chart and agree that the record accurately reflects my personal performance of the history, physical exam, medical decision making, and the department course for this patient. I have also personally directed, reviewed, and agree with the discharge instructions and disposition. Disposition - Clinical Impression Clinical Impression: Abdominal pain, Intraperitoneal abscess, UTI (urinary tract infection) - Patient ED Disposition Is Patient to be Admitted: Transfer of Care Counseled Patient/Family Regarding: Studies Performed, Diagnosis - Disposition Disposition: Transfer of Care Disposition Time: 19:00 Condition: FAIR Patient Signed Over To: Kostas Mckeon
[2017-08-29 17:00] LABS: BASO # 0.1 K/uL (0.0-0.2); BASO % 0.7 % (0.0-2.0); EOS # 0.3 K/uL (0.0-0.7); EOS % 2.5 % (0.0-4.0); HEMOGLOBIN 13.5 g/dL (12.0-16.0); LYMPH # 3.6 K/uL (1.0-4.3); LYMPH % 32.6 % (20.0-40.0); MEAN CELL VOLUME 88.1 fl (81.0-99.0); MEAN CORPUSCULAR HEMOGLOBIN 29.7 pg (27.0-31.0); MEAN CORPUSCULAR HGB CONC 33.7 g/dL (33.0-37.0); MEAN PLATELET VOLUME 9.6 fl (7.2-11.7); MONO # 0.8 K/uL (0.0-0.8); MONO % 7.6 % (0.0-10.0); NEUT # 6.2 K/uL (1.8-7.0); NEUT % 56.6 % (50.0-75.0); NRBC % 0.1 % (0.0-0.0); RBC 4.55 Mil/uL (3.80-5.20); RED CELL DISTRIBUTION WIDTH 14.6 % (11.5-14.5)
[2017-08-29] MEDS ORDERED: Iohexol 240 (50 ml) ONE (17:01)
[2017-08-29 17:17] LABS: ALB/GLOB RATIO 0.9 (1.0-2.1); ALBUMIN 4.1 g/dL (3.5-5.0); ALT/SGPT 47 U/L (9-52); AST/SGOT 48 U/L (14-36); BLOOD UREA NITROGEN 15 mg/dl (7-17); CALCIUM 9.4 mg/dL (8.4-10.2); GFR AFRICAN-AMERICAN > 60; GFR NON-AFRICAN AMERICAN > 60; LIPASE 64 U/L (23-300)
[2017-08-29] MEDS ORDERED: Sodium Chloride 0.9% 100 ML ONE (18:10)
[2017-08-29] MEDS ORDERED: Iohexol 300 100 ML IJ ONE (18:10)
--- NOTE | 2017-08-29 19:34 | ED PDOC ---
- Laboratory Results Result Diagrams: 08/29/17 16:53 08/29/17 16:53 - ECG O2 Sat by Pulse Oximetry: 99 (RA) Pulse Ox Interpretation: Normal Medical Decision Making Medical Decision Making: Time: 19:00 Patient signed out to me by Dr. Knowles pending Abdominal pelvis PO & IV Contrast [CT] and reevaluation. Time: 21:44 EXAM: CT Abdomen and Pelvis With Intravenous Contrast FINDINGS: LIMITATIONS: Mild streak/motion artifact. LOWER THORAX: No infiltrate seen in the lung bases. ABDOMEN: LIVER: Mildly nodular contour of the liver, suspicious for mild cirrhotic change. Fatty infiltration of the liver. GALLBLADDER AND BILE DUCTS: No CT evidence of acute cholecystitis. No evidence of significant biliary ductal dilatation. PANCREAS: See below. No CT evidence of acute pancreatitis. SPLEEN: No acute abnormality of the spleen identified. ADRENALS: No acute abnormality of the adrenal glands identified. KIDNEYS AND URETERS: No acute abnormality of the kidneys identified. No evidence of significant hydrouereteronephrosis. STOMACH AND BOWEL: Round collection of air in the head of the pancreas, felt to represent a duodenal diverticulum. Surgical suture line/surgical anatomosis is noted in the sigmoid colon. Colonic diverticulosis, with no evidence of acute diverticulitis. Otherwise, no significant abnormality of the bowel is identified. No evidence of bowel obstruction. Unremarkable appearance of the terminal ileum. APPENDIX: Normal appendix is not seen, however, there are no significant inflammatory changes visualized in the expected location of the appendix to suggest appendicitis. Recommend clinical correlation. PELVIS: BLADDER: No acute abnormality of the bladder identified. Negative. REPRODUCTIVE:No acute abnormality of the reproductive organs is seen. No acute abnormality of the uterus identified. No evidence of large adnexal masses. ABDOMEN and PELVIS: INTRAPERITONEAL SPACE: No evidence of free air or free fluid. No evidence of intrapelvic/intraperitoneal fluid collection or abscess. BONES/JOINTS: Marked degenerative disc disease at L3-4. Air in the spinal canal at the S1 level, most likely degenerative in etiology. There is vacuum phenomenon involving the nearby L5/S1 disc. SOFT TISSUES: Best seen on image 26 of series 601, there is an elongated, crescent shaped cystic/fluid density masslike area in the anterior pelvic wall musculature, which measures 8 cm in transverse dimensions, 1 cm in AP dimensions, and 2.4 cm in craniocaudal dimensions. This has an enhancing soft tissue rim. It does not contain gas. It is deep in location, localized to the deep musculature just superficial to the peritoneum. This is suspicious for a fluid collection. Diffuse stranding of the subcutaneous fat in the anterior pelvic wall soft tissues inferiorly, in the suprapubic region. Diffuse, mild swelling and fluid in the the anterior pelvic wall musculature. Findings are suspicious for cellulitis. No evidence of abdominal wall hernia containing bowel. VASCULATURE: No evidence of abdominal aortic aneurysm. No evidence of periaortic hemorrhage. LYMPH NODES: No evidence of diffuse lymphadenopathy. IMPRESSION: - Findings suspicious for diffuse cellulitis involving the anterior pelvic wall soft tissues. There is an 8 x 1 x 2.4 cm crescent-shaped fluid collection in the deep anterior pelvic wall musculature. This could represent a resolving hematoma, lymphocele , or seroma, however an infected fluid collection/abscess is not excluded. No associated gas. - Otherwise, no evidence of significant acute process. - See above for remaining findings. Pt. still complained of pain. Discussed case with Dr. Horvath who recommended no acute intervention at this time. Will admit for continued abdominal pain and possible abscess to FP service in [facility]. Documented by Wesly Londono acting as a scribe for Kostas Mckeon MD. All medical record entries made by the Scribe were at my direction and personally dictated by me. I have reviewed the chart and agree that the record accurately reflects my personal performance of the history, physical exam, medical decision making, and the department course for this patient. I have also personally directed, reviewed, and agree with the discharge instructions and disposition. Disposition - Clinical Impression Clinical Impression: Abdominal pain, Intraperitoneal abscess - POA Present On Arrival: None - Disposition Disposition: Hospitalized as Observation Patient Disposition Time: 22:45 Condition: FAIR
--- NOTE | 2017-08-29 20:09 | CT ---
EXAM: CT Abdomen and Pelvis With Intravenous Contrast EXAM DATE/TIME: 08/29/2017 4:23 PM CLINICAL HISTORY: 72 years old, female; Pain; Abdominal pain; Prior surgery; Additional info: Abdominal pain multiple surgeries TECHNIQUE: Axial computed tomography images of the abdomen and pelvis with intravenous contrast. All CT scans at this facility use one or more dose reduction techniques, viz.: automated exposure control; ma/kV adjustment per patient size (including targeted exams where dose is matched to indication; i.e. head); or iterative reconstruction technique. Coronal and sagittal reformatted images were created and reviewed. CONTRAST: 100 mL of [id number] administered intravenously. COMPARISON: None is available currently. Prior CTs have been requested. FINDINGS: LIMITATIONS: Mild streak/motion artifact. LOWER THORAX: No infiltrate seen in the lung bases. ABDOMEN: LIVER: Mildly nodular contour of the liver, suspicious for mild cirrhotic change. Fatty infiltration of the liver. GALLBLADDER AND BILE DUCTS: No CT evidence of acute cholecystitis. No evidence of significant biliary ductal dilatation. PANCREAS: See below. No CT evidence of acute pancreatitis. SPLEEN: No acute abnormality of the spleen identified. ADRENALS: No acute abnormality of the adrenal glands identified. KIDNEYS AND URETERS: No acute abnormality of the kidneys identified. No evidence of significant hydrouereteronephrosis. STOMACH AND BOWEL: Round collection of air in the head of the pancreas, felt to represent a duodenal diverticulum. Surgical suture line/surgical anatomosis is noted in the sigmoid colon. Colonic diverticulosis, with no evidence of acute diverticulitis. Otherwise, no significant abnormality of the bowel is identified. No evidence of bowel obstruction. Unremarkable appearance of the terminal ileum. APPENDIX: Normal appendix is not seen, however, there are no significant inflammatory changes visualized in the expected location of the appendix to suggest appendicitis. Recommend clinical correlation. PELVIS: BLADDER: No acute abnormality of the bladder identified. Negative. REPRODUCTIVE:No acute abnormality of the reproductive organs is seen. No acute abnormality of the uterus identified. No evidence of large adnexal masses. ABDOMEN and PELVIS: INTRAPERITONEAL SPACE: No evidence of free air or free fluid. No evidence of intrapelvic/intraperitoneal fluid collection or abscess. BONES/JOINTS: Marked degenerative disc disease at L3-4. Air in the spinal canal at the S1 level, most likely degenerative in etiology. There is vacuum phenomenon involving the nearby L5/S1 disc. SOFT TISSUES: Best seen on image 26 of series 601, there is an elongated, crescent shaped cystic/fluid density masslike area in the anterior pelvic wall musculature, which measures 8 cm in transverse dimensions, 1 cm in AP dimensions, and 2.4 cm in craniocaudal dimensions. This has an enhancing soft tissue rim. It does not contain gas. It is deep in location, localized to the deep musculature just superficial to the peritoneum. This is suspicious for a fluid collection. Diffuse stranding of the subcutaneous fat in the anterior pelvic wall soft tissues inferiorly, in the suprapubic region. Diffuse, mild swelling and fluid in the the anterior pelvic wall musculature. Findings are suspicious for cellulitis. No evidence of abdominal wall hernia containing bowel. VASCULATURE: No evidence of abdominal aortic aneurysm. No evidence of periaortic hemorrhage. LYMPH NODES: No evidence of diffuse lymphadenopathy. IMPRESSION: - Findings suspicious for diffuse cellulitis involving the anterior pelvic wall soft tissues. There is an 8 x 1 x 2.4 cm crescent-shaped fluid collection in the deep anterior pelvic wall musculature. This could represent a resolving hematoma, lymphocele , or seroma, however an infected fluid collection/abscess is not excluded. No associated gas. - Otherwise, no evidence of significant acute process. - See above for remaining findings.
[2017-08-29] MEDS ORDERED: Sodium Chloride 0.9% 1,000 ML IV STA (21:20)
[2017-08-29 22:19] LABS: VENOUS BLOOD GAS BASE EXCESS 3.7 mmol/L (0.0-2.0); VENOUS BLOOD GAS PCO2 39 mmHg (40-60); VENOUS BLOOD GAS PO2 49 mm/Hg (30-55); VENOUS BLOOD PH 7.46 (7.32-7.43)
[2017-08-29] MEDS ORDERED: Glucagon Recombinant 1 mg Inj IM PRN (22:26)
[2017-08-29] MEDS ORDERED: Dextrose 50% SYRINGE Inj (50 ml) IV PRN (22:26)
--- NOTE | 2017-08-29 22:27 | CP.PCM.CON ---
History of Present Illness - History of Present Illness History of Present Illness: General Surgery Dr. Horvath 72 y/o F w/ PMHx of recurrent ventral hernia and incisional wound infection w/ seroma presents to the ED c/o abd pain. Pt was discharged on 07/27/17 w/ PO Cipro for abd incision infection. Pt reports worsening abd pain since Tuesday. Pain started out as a 5 but on arrival to the hospital was ~10. Pt indicates RLQ &LLQ as source of abd pain. Pt denies any midline tenderness. Pt admits to concurrent nausea and diarrhea. Pt denies F/C, vomiting, constipation. Per the H &P, pt was recently started on a higher dose of metformin, after which, the pt developed abd pain and diarrhea. PMHx: HTN, DM2, HLD, diverticulitis, hyperthyroidism, hypothyroidism, morbid obesity, depression, arthritis Meds: reviewed in chart NKDA PSHx: incisional hernia repair x2, sigmoidectomy SHx: (+)tobacco, (-)EtOH, Drug use FHx: noncontributory Review of Systems - Review of Systems All systems: reviewed and no additional remarkable complaints except (see HPI) Past Patient History - Infectious Disease Hx of Infectious Diseases: None - Tetanus Immunizations Tetanus Immunization: Unknown - Past Medical History & Family History Past Medical History?: Yes - Past Social History Alcohol: None Drugs: Denies - CARDIAC Hx Hypercholesterolemia: Yes Hx Hypertension: Yes - PULMONARY Hx Respiratory Disorders: No - NEUROLOGICAL Hx Neurological Disorder: No - HEENT Hx HEENT Problems: No - RENAL Hx Chronic Kidney Disease: No - ENDOCRINE/METABOLIC Hx Hyperthyroidism: Yes Hx Hypothyroidism: Yes - HEMATOLOGICAL/ONCOLOGICAL Hx Human Immunodeficiency Virus (HIV): No - INTEGUMENTARY Hx Dermatological Problems: No - MUSCULOSKELETAL/RHEUMATOLOGICAL Hx Arthritis: Yes - GASTROINTESTINAL Hx Gastrointestinal Disorders: Yes Hx Bowel Surgery: Yes Hx Fatty Liver Disease: Yes - GENITOURINARY/GYNECOLOGICAL Hx Genitourinary Disorders: No - PSYCHIATRIC Hx Depression: Yes - SURGICAL HISTORY Hx Surgeries: Yes (colon surgery 12/25/2014) Hx Herniorrhaphy: Yes (INCISONAL HERNIA) Other/Comment: Exploratory laparotomy with sigmoid colon resection on 12/25/14 - ANESTHESIA Hx Anesthesia: Yes Hx Anesthesia Reactions: No Hx Malignant Hyperthermia: No Meds Allergies/Adverse Reactions: Allergies Allergy/AdvReac Type Severity Reaction Status Date / Time No Known Allergies Allergy Verified 07/21/17 13:47 - Medications Medications: Current Medications Sodium Chloride (Sodium Chloride 0.9%) 1,000 mls @ 150 mls/hr IV .[id number] STA Stop: 08/30/17 03:59 Last Admin: 08/29/17 21:27 Dose: 150 mls/hr Physical Exam - Constitutional Appears: Non-toxic, No Acute Distress - Head Exam Head Exam: NORMAL INSPECTION - Eye Exam Eye Exam: Normal appearance - ENT Exam ENT Exam: Mucous Membranes Moist - Respiratory Exam Respiratory Exam: NORMAL BREATHING PATTERN. absent: Accessory Muscle Use, Respiratory Distress - GI/Abdominal Exam GI & Abdominal Exam: Soft, Tenderness (TTP RLQ/LLQ). absent: Distended, Guarding, Rebound Additional comments: midline incision well healed. no drainage, erythema, warmth, fluctuance - Extremities Exam Extremities exam: Positive for: normal inspection - Neurological Exam Neurological exam: Alert - Psychiatric Exam Psychiatric exam: Normal Affect, Normal Mood - Skin Skin Exam: Dry, Intact, Normal Color, Warm Results - Vital Signs Recent Vital Signs: Last Vital Signs Temp 98.0 F 08/29/17 18:46 Pulse 88 08/29/17 18:46 Resp 17 08/29/17 18:46 BP 134/72 08/29/17 18:46 Pulse Ox 99 08/29/17 21:46 - Labs Result Diagrams: 08/29/17 16:53 08/29/17 16:53 Labs: Laboratory Results - last 24 hr 08/29/17 08/29/17 16:53 16:53 WBC 11.0 H RBC 4.55 Hgb 13.5 Hct 40.1 MCV 88.1 MCH 29.7 MCHC 33.7 RDW 14.6 H Plt Count 245 MPV 9.6 Neut % (Auto) 56.6 Lymph % (Auto) 32.6 [place] % (Auto) 7.6 Eos % (Auto) 2.5 Baso % (Auto) 0.7 Neut # (Auto) 6.2 Lymph # (Auto) 3.6 [place] # (Auto) 0.8 Eos # (Auto) 0.3 Baso # (Auto) 0.1 Sodium 142 Potassium 4.4 Chloride 98 Carbon Dioxide 28 Anion Gap 20 BUN 15 Creatinine 0.9 Est GFR ( Amer) > 60 Est GFR (Non-Af Amer) > 60 Random Glucose 97 Calcium 9.4 Total Bilirubin 0.7 AST 48 H ALT 47 Alkaline Phosphatase 111 Total Protein 8.4 H Albumin 4.1 Globulin 4.3 H Albumin/Globulin Ratio 0.9 L Lipase 64 - Imaging and Cardiology CT scan - abdomen Status: Image reviewed by me, Report reviewed by me Assessment & Plan - Assessment and Plan (Free Text) Assessment: 72 y/o F s/p ventral hernia repair x2 w/ mesh, complicated by infection presents w/ abd pain likely 2/2 medication - IV Abx; IVF - ADAT - replete electrolytes PRN - pain management - cont medical management - no surgical intervention at this time Further recs per Dr. Alexandru Hayes DO PGY2
--- NOTE | 2017-08-29 22:39 | CP.PCM.HP ---
History of Present Illness - History of Present Illness History of Present Illness: 72 YO F w/ H/O DM II, HTN, recurrent ventral hernia and incisional wound infection w/ seroma presents to the ER with worsening abdominal pain over the last three days associated with diarrhea. States she has noticed some chills but denies any fever. Describes the pain as sharp and is localized to the left lower quadrant and suprapubic area. Quantifies pain at a 6/10 which has decreased to a 3/10 after receiving pain meds in the ER. Denies any burning with micturation or increase in frequency. She has not been taking any pain medications at home. States that she completed her antibiotics last time she was discharged. - Dr. Horvath was called by the ED who reviewed the patients chart and imaging and had advised the patient to follow up outpatient. However patient states she is in a lot of pain, and is worried because last time she ended up having a intraabdominal abscess. - Patient recently was seen by her PMD and was changed from taking Metformin 500 BID to 1000 BID 3 days ago, and since then the pain and diarrhea has worsened. PMH: Hypothyroidism, DM2, HTN, Hyperlipidemia, PSH:Sigmoid colectomy secondary to obstructed colon due to diverticulitis , incisional hernia repair 07/12/17 FH: Father: lung cancer SH: 2 cig per day - 7 years, Quit 15 years ago and restarted. Occasional ETOH use, Denies illicit drug use. Lives with and son Full code. Healthcare proxy: Son(Mohinder Leger, ) Present on Admission - Present on Admission Any Indicators Present on Admission: Yes History of Uncontrolled Diabetes: Yes Review of Systems - Review of Systems All systems: reviewed and no additional remarkable complaints except Past Patient History - Infectious Disease Hx of Infectious Diseases: None - Tetanus Immunizations Tetanus Immunization: Unknown - Past Medical History & Family History Past Medical History?: Yes - Past Social History Alcohol: None Drugs: Denies - CARDIAC Hx Hypercholesterolemia: Yes Hx Hypertension: Yes - PULMONARY Hx Respiratory Disorders: No - NEUROLOGICAL Hx Neurological Disorder: No - HEENT Hx HEENT Problems: No - RENAL Hx Chronic Kidney Disease: No - ENDOCRINE/METABOLIC Hx Hyperthyroidism: Yes Hx Hypothyroidism: Yes - HEMATOLOGICAL/ONCOLOGICAL Hx Human Immunodeficiency Virus (HIV): No - INTEGUMENTARY Hx Dermatological Problems: No - MUSCULOSKELETAL/RHEUMATOLOGICAL Hx Arthritis: Yes - GASTROINTESTINAL Hx Gastrointestinal Disorders: Yes Hx Bowel Surgery: Yes Hx Fatty Liver Disease: Yes - GENITOURINARY/GYNECOLOGICAL Hx Genitourinary Disorders: No - PSYCHIATRIC Hx Depression: Yes - SURGICAL HISTORY Hx Surgeries: Yes (colon surgery 12/25/2014) Hx Herniorrhaphy: Yes (INCISONAL HERNIA) Other/Comment: Exploratory laparotomy with sigmoid colon resection on 12/25/14 - ANESTHESIA Hx Anesthesia: Yes Hx Anesthesia Reactions: No Hx Malignant Hyperthermia: No Meds Allergies/Adverse Reactions: Allergies Allergy/AdvReac Type Severity Reaction Status Date / Time No Known Allergies Allergy Verified 07/21/17 13:47 Physical Exam - Constitutional Appears: No Acute Distress - Head Exam Head Exam: NORMAL INSPECTION - Eye Exam Eye Exam: Normal appearance - Respiratory Exam Respiratory Exam: Clear to Auscultation Bilateral, NORMAL BREATHING PATTERN. absent: Rhonchi, Wheezes - Cardiovascular Exam Cardiovascular Exam: REGULAR RHYTHM, +S1, +S2 - GI/Abdominal Exam GI & Abdominal Exam: Normal Bowel Sounds, Soft, Tenderness (left lower quadrant tenderness on palpation, slight suprapubic tenderness on palpation, and right flank tenderness on palpation). absent: Distended, Rebound, Rigid - Extremities Exam Extremities exam: Positive for: normal inspection. Negative for: calf tenderness - Neurological Exam Neurological exam: Alert, CN II-XII Intact, Oriented x3 - Skin Skin Exam: Normal Color, Warm Results - Vital Signs Recent Vital Signs: Last Vital Signs Temp 98.0 F 08/29/17 18:46 Pulse 88 08/29/17 18:46 Resp 17 08/29/17 18:46 BP 134/72 08/29/17 18:46 Pulse Ox 99 08/29/17 21:46 - Labs Result Diagrams: 08/29/17 16:53 08/29/17 16:53 Labs: Laboratory Results - last 24 hr 08/29/17 08/29/17 08/29/17 16:53 16:53 22:14 WBC 11.0 H RBC 4.55 Hgb 13.5 Hct 40.1 MCV 88.1 MCH 29.7 MCHC 33.7 RDW 14.6 H Plt Count 245 MPV 9.6 Neut % (Auto) 56.6 Lymph % (Auto) 32.6 [place] % (Auto) 7.6 Eos % (Auto) 2.5 Baso % (Auto) 0.7 Neut # (Auto) 6.2 Lymph # (Auto) 3.6 [place] # (Auto) 0.8 Eos # (Auto) 0.3 Baso # (Auto) 0.1 pO2 49 VBG pH 7.46 H VBG pCO2 39 L VBG HCO3 27.5 VBG Total CO2 28.9 H VBG O2 Sat (Calc) 90.3 H VBG Base Excess 3.7 H VBG Potassium 4.1 Glucose 155 H Lactate 1.7 FiO2 21.0 Sodium 142 135.0 Potassium 4.4 Chloride 98 103.0 Carbon Dioxide 28 Anion Gap 20 BUN 15 Creatinine 0.9 Est GFR ( Amer) > 60 Est GFR (Non-Af Amer) > 60 Random Glucose 97 Calcium 9.4 Total Bilirubin 0.7 AST 48 H ALT 47 Alkaline Phosphatase 111 Total Protein 8.4 H Albumin 4.1 Globulin 4.3 H Albumin/Globulin Ratio 0.9 L Lipase 64 Venous Blood Potassium 4.1 Assessment & Plan - Assessment and Plan (Free Text) Assessment: 72 y/o F with PMhx of NIDDM, HTN and NAFLD presents for eval of her abdominal pain and was recently discharged after being treated for an abdominal abscess on 07/27/17. 1) Abdominal pain - Possibly secondary to fluid collection in deep anterior pelvic wall vs cellulites of anterior pelvic wall vs Metformin dosage increase - CT abdomen: Fluid collection in deep anterior pelvic wall musculature has significantly decreased in size compared to the prior CT, compatible with a resolving abscess. The suspected cellulits of the anterior pelvic wall soft tissue appears also decreased or improved. There is a 8 x 1 x 2.4 cm crescent shaped fluid collection in the deep anterior pelvic wall musculature - WBC: 11.0 with no left shift. Afebrile. Lactate : 1.7 - Surgery consulted - Hold metformin for now - Pain management - No IV antibiotics or surgical intervention indicated as per surgery at this point - Continue with serial abdominal exams. 2) DM 2 - C/W Low dose sliding scale - -Last HgbA1c 7.5(05/19/17) - Hold metformin b/c of GI side effects 3. HTN -Chronic, controlled, C/w home meds 4.) DVT prophylaxis - Lovenox 40 SC
[2017-08-30] MEDS: Insulin Regular 100 units/ml SC SCH ×2 (06:44→12:08)
[2017-08-30] MEDS ORDERED: Insulin Regular 100 units/ml SC SCH (07:30)
--- NOTE | 2017-08-30 07:52 | CP.PCM.PN ---
Subjective - Date & Time of Evaluation Date of Evaluation: 08/30/17 Time of Evaluation: 07:48 - Subjective Subjective: General Surgery: Dr Horvath Pt S&E. Admitted for abdominal pain with diarrhea. Pt reports diarrhea and LLQ /RLQ abdominal pain have already resolved. Denies N/V, F/C. Pt states she has b/l flank pain, which was present prior to surgery. Pt states she has not been herself the past several months. Pt states all her life everything is going wrong, and she no longer has any motivation to do anything. She has tried vitamins and eating healthy, but she just does not want to eat, and does not want to get out of bed or leave her house. Objective - Vital Signs/Intake and Output Vital Signs (last 24 hours): Temp Pulse Resp BP Pulse Ox 98.1 F 85 19 102/65 99 08/30/17 00:36 08/30/17 05:08 08/30/17 05:08 08/30/17 00:36 08/30/17 07:47 - Medications Medications: Current Medications Acetaminophen (Tylenol 325mg Tab) 650 mg PO Q4 PRN PRN Reason: Pain, Mild (1-3) Atorvastatin Calcium (Lipitor) 10 mg PO HS [facility] Last Admin: 08/29/17 23:25 Dose: 10 mg Dextrose (Dextrose 50% Inj) 0 ml IV STAT PRN; Protocol PRN Reason: Hypoglycemia Protocol Dextrose (Glutose 15) 0 gm PO ONCE PRN; Protocol PRN Reason: Hypoglycemia Protocol Enoxaparin Sodium (Lovenox) 40 mg SC DAILY [facility] PRN Reason: Protocol Glucagon (Glucagen Diagnostic Kit) 0 mg IM STAT PRN; Protocol PRN Reason: Hypoglycemia Protocol Insulin Human Regular (Humulin R) 0 units SC ACHS [facility] PRN Reason: Protocol Last Admin: 08/30/17 06:44 Dose: Not Given Ketorolac Tromethamine (Toradol) 30 mg IVP Q6 PRN PRN Reason: Pain, moderate (4-7) Levothyroxine Sodium (Synthroid) 100 mcg PO DAILY [facility] Losartan Potassium (Cozaar) 25 mg PO DAILY [facility] Morphine Sulfate (Morphine) 2 mg IVP Q4 PRN PRN Reason: Pain, severe (8-10) Nicotine (Nicoderm Cq) 1 patch TD DAILY [facility] - Labs Labs: 08/29/17 16:53 08/29/17 16:53 - Constitutional Appears: Non-toxic, No Acute Distress - Respiratory Exam Respiratory Exam: absent: Accessory Muscle Use, Respiratory Distress - Cardiovascular Exam Cardiovascular Exam: REGULAR RHYTHM. absent: Tachycardia - GI/Abdominal Exam GI & Abdominal Exam: Soft. absent: Distended, Firm, Guarding, Tenderness, Rebound Additional comments: midline incision well healed - Extremities Exam Extremities Exam: absent: Pedal Edema - Neurological Exam Neurological Exam: Alert, Awake, Oriented x3 - Psychiatric Exam Psychiatric exam: Normal Affect, Normal Mood - Skin Skin Exam: Normal Color, Warm Assessment and Plan - Assessment and Plan (Free Text) Assessment: 72F with abdominal pain and diarrhea; resolving. Possibly secondary to medication Plan: CT scan shows fluid collection has resolved, minimal inflammation persists No surgical intervention planned would recommend possible evaluation for depression will d/w Dr Alexandru Camara, PGY3
[2017-08-30 08:00] VITALS: BP 111/70; PULSE 74; RESP 20; TEMP 98.3
--- NOTE | 2017-08-30 08:34 | CP.PCM.PN ---
Subjective - Date & Time of Evaluation Date of Evaluation: 08/30/17 Time of Evaluation: 07:20 - Subjective Subjective: The patient was seen and examined at bedside this morning. There are no acute events overnight, NAD. The patient is laying in bed comfortably. The patient reports no nausea, vomiting, or diarrhea since prior to admission. Patient reports improvement of pain but still complains of generalized abdominal pain. Objective - Vital Signs/Intake and Output Vital Signs (last 24 hours): Temp Pulse Resp BP Pulse Ox 98.3 F 74 20 111/70 95 08/30/17 07:59 08/30/17 07:59 08/30/17 07:59 08/30/17 07:59 08/30/17 07:59 - Medications Medications: Current Medications Acetaminophen (Tylenol 325mg Tab) 650 mg PO Q4 PRN PRN Reason: Pain, Mild (1-3) Atorvastatin Calcium (Lipitor) 10 mg PO HS [facility] Last Admin: 08/29/17 23:25 Dose: 10 mg Dextrose (Dextrose 50% Inj) 0 ml IV STAT PRN; Protocol PRN Reason: Hypoglycemia Protocol Dextrose (Glutose 15) 0 gm PO ONCE PRN; Protocol PRN Reason: Hypoglycemia Protocol Enoxaparin Sodium (Lovenox) 40 mg SC DAILY [facility] PRN Reason: Protocol Glucagon (Glucagen Diagnostic Kit) 0 mg IM STAT PRN; Protocol PRN Reason: Hypoglycemia Protocol Insulin Human Regular (Humulin R) 0 units SC ACHS [facility] PRN Reason: Protocol Last Admin: 08/30/17 06:44 Dose: Not Given Ketorolac Tromethamine (Toradol) 30 mg IVP Q6 PRN PRN Reason: Pain, moderate (4-7) Levothyroxine Sodium (Synthroid) 100 mcg PO DAILY [facility] Losartan Potassium (Cozaar) 25 mg PO DAILY [facility] Morphine Sulfate (Morphine) 2 mg IVP Q4 PRN PRN Reason: Pain, severe (8-10) Nicotine (Nicoderm Cq) 1 patch TD DAILY [facility] - Labs Labs: 08/29/17 16:53 08/29/17 16:53 - Constitutional Appears: Non-toxic, No Acute Distress - Head Exam Head Exam: ATRAUMATIC, NORMAL INSPECTION, NORMOCEPHALIC - Eye Exam Eye Exam: Normal appearance - ENT Exam ENT Exam: Mucous Membranes Moist - Neck Exam Neck Exam: Full ROM. absent: Tenderness - Respiratory Exam Respiratory Exam: Clear to Ausculation Bilateral, NORMAL BREATHING PATTERN. absent: Decreased Breath Sounds, Rales, Rhonchi, Wheezes, Respiratory Distress - Cardiovascular Exam Cardiovascular Exam: REGULAR RHYTHM. absent: Tachycardia - GI/Abdominal Exam GI & Abdominal Exam: Soft, Normal Bowel Sounds. absent: Distended, Guarding, Tenderness, Rebound Additional comments: well healed midline incision - Extremities Exam Extremities Exam: absent: Calf Tenderness, Pedal Edema, Tenderness - Neurological Exam Neurological Exam: Alert, Awake, Oriented x3 - Skin Skin Exam: Dry, Intact, Normal Color, Warm Assessment and Plan - Assessment and Plan (Free Text) Assessment: 72 y/o woman w/ pmh of NIDDM, hypothyroidism, HTN and non-alcoholic fatty liver disease admitted for abdominal pain w/ recent discharge after being treated for an abdominal abscess on 07/27/17 Plan: 1. Abdominal pain - Hx of sigmoid colectomy due to perforated colon from diverticulitis 12/2014, incisional hernia repair 07/2016, incisional hernia repair w/ mesh and enterolysis 07/12/2017 - Possibly secondary to fluid collection in deep anterior pelvic wall vs cellulitis of anterior pelvic wall vs Metformin dosage increase vs. adhesions from multiple abdominal surgeries - CT abdomen: Fluid collection in deep anterior pelvic wall musculature has significantly decreased in size compared to the prior CT, compatible with a resolving abscess. The suspected cellulits of the anterior pelvic wall soft tissue appears also decreased or improved. There is a 8 x 1 x 2.4 cm crescent shaped fluid collection in the deep anterior pelvic wall musculature - WBC: 11.0 with no left shift. Afebrile. Lactate : 1.7 - Surgery consulted - toradol 30 mg Q6h prn - Hold metformin for now - No IV antibiotics or surgical intervention indicated as per surgery at this point - c/w serial abdominal exams 2. NIDDM 2 - c/w Low dose correction scale - consistent carbohydrate diet - Last HgbA1c 7.5% (05/19/2017) - Hold metformin b/c of GI side effects 3. HTN - Chronic, controlled w/ medication, BP 111/70 mm Hg - C/w home meds: losartan 25 mg PO daily 4. Hypothyroidism - last TSH 4.17 (05/19/2017) - last free T4 1.47 (05/19/2017) - c/w levothyroxine 100 mcg PO daily 5. Hyperlipidemia - trig 160, chol 240, LDL 142, HDL 50 (11/10/2016) - c/w atorvastatin 10 mg PO HS 6. Prophylactic measures - DVT: Lovenox 40 SC daily
[2017-08-30] MEDS: Enoxaparin 40 mg Syringe SC SCH ×2 (08:54→08:59)
[2017-08-30] MEDS ORDERED: Levothyroxine 100 MCG TAB PO SCH (09:00)
[2017-08-30 10:23] VITALS: O2SAT 99
--- NOTE | 2017-08-30 11:35 | CP.PCM.DIS ---
Provider - Provider Date of Admission: 08/29/17 21:20 Attending physician: Susan You MD Time Spent in preparation of Discharge (in minutes): 15 Diagnosis - Discharge Diagnosis (1) Abdominal pain Status: Acute Comment: likely 2/2 medication side effect vs. post op adehesions vs. resolving peritoneal fluid collection Hospital Course - Lab Results Lab Results: Most Recent Lab Values WBC 11.0 K/uL (4.8-10.8) H 08/29/17 16:53 RBC 4.55 Mil/uL (3.80-5.20) 08/29/17 16:53 Hgb 13.5 g/dL (12.0-16.0) 08/29/17 16:53 Hct 40.1 % (34.0-47.0) 08/29/17 16:53 MCV 88.1 fl (81.0-99.0) 08/29/17 16:53 MCH 29.7 pg (27.0-31.0) 08/29/17 16:53 MCHC 33.7 g/dL (33.0-37.0) 08/29/17 16:53 RDW 14.6 % (11.5-14.5) H 08/29/17 16:53 Plt Count 245 K/uL (130-400) 08/29/17 16:53 MPV 9.6 fl (7.2-11.7) 08/29/17 16:53 Neut % (Auto) 56.6 % (50.0-75.0) 08/29/17 16:53 Lymph % (Auto) 32.6 % (20.0-40.0) 08/29/17 16:53 [place] % (Auto) 7.6 % (0.0-10.0) 08/29/17 16:53 Eos % (Auto) 2.5 % (0.0-4.0) 08/29/17 16:53 Baso % (Auto) 0.7 % (0.0-2.0) 08/29/17 16:53 Neut # (Auto) 6.2 K/uL (1.8-7.0) 08/29/17 16:53 Lymph # (Auto) 3.6 K/uL (1.0-4.3) 08/29/17 16:53 [place] # (Auto) 0.8 K/uL (0.0-0.8) 08/29/17 16:53 Eos # (Auto) 0.3 K/uL (0.0-0.7) 08/29/17 16:53 Baso # (Auto) 0.1 K/uL (0.0-0.2) 08/29/17 16:53 pO2 49 mm/Hg (30-55) 08/29/17 22:14 VBG pH 7.46 (7.32-7.43) H 08/29/17 22:14 VBG pCO2 39 mmHg (40-60) L 08/29/17 22:14 VBG HCO3 27.5 mmol/L 08/29/17 22:14 VBG Total CO2 28.9 mmol/L (22-28) H 08/29/17 22:14 VBG O2 Sat (Calc) 90.3 % (40-65) H 08/29/17 22:14 VBG Base Excess 3.7 mmol/L (0.0-2.0) H 08/29/17 22:14 VBG Potassium 4.1 mmol/L (3.6-5.2) 08/29/17 22:14 Sodium 135.0 mmol/L (132-148) 08/29/17 22:14 Chloride 103.0 mmol/L (98-107) 08/29/17 22:14 Glucose 155 mg/dL (65-105) H 08/29/17 22:14 Lactate 1.7 mmol/L (0.7-2.1) 08/29/17 22:14 FiO2 21.0 % 08/29/17 22:14 Sodium 142 mmol/l (132-148) 08/29/17 16:53 Potassium 4.4 MMOL/L (3.6-5.0) 08/29/17 16:53 Chloride 98 mmol/L (98-107) 08/29/17 16:53 Carbon Dioxide 28 mmol/L (22-30) 08/29/17 16:53 Anion Gap 20 (10-20) 08/29/17 16:53 BUN 15 mg/dl (7-17) 08/29/17 16:53 Creatinine 0.9 mg/dl (0.7-1.2) 08/29/17 16:53 Est GFR ( Amer) > 60 08/29/17 16:53 Est GFR (Non-Af Amer) > 60 08/29/17 16:53 POC Glucose (mg/dL) 110 mg/dL (65-110) 08/30/17 05:53 Random Glucose 97 mg/dL (65-105) 08/29/17 16:53 Calcium 9.4 mg/dL (8.4-10.2) 08/29/17 16:53 Total Bilirubin 0.7 mg/dl (0.2-1.3) 08/29/17 16:53 AST 48 U/L (14-36) H 08/29/17 16:53 ALT 47 U/L (9-52) 08/29/17 16:53 Alkaline Phosphatase 111 U/L (38-126) 08/29/17 16:53 Total Protein 8.4 G/DL (6.3-8.2) H 08/29/17 16:53 Albumin 4.1 g/dL (3.5-5.0) 08/29/17 16:53 Globulin 4.3 gm/dL (2.2-3.9) H 08/29/17 16:53 Albumin/Globulin Ratio 0.9 (1.0-2.1) L 08/29/17 16:53 Lipase 64 U/L (23-300) 08/29/17 16:53 Venous Blood Potassium 4.1 mmol/L (3.6-5.2) 08/29/17 22:14 - Hospital Course Hospital Course: The patient is a 72 y/o woman w/ pmh of NIDDM, hypothyroidism, HTN and non- alcoholic fatty liver disease admitted for abdominal pain w/ recent discharge after being treated for an abdominal abscess on 07/27/2017. The patient on admission VSS, CBC showed mildly elevated WBC, CMP was WNL, and CT abdomen showed resolving abscess decreased cellulitis. The patient reports overnight no nausea, vomiting, or diarrhea. The patient reports improvement w/ pain. The patient was seen by surgical team and deemed to continue conservative management at this time. The patient has been seen, examined, and deemed medically fit for discharge home. The patient will be discharged w/ metformin 500 ER PO daily. The patient has an appointment at the [facility] w/ Dr. Faust on 09/01/2017 at 13:40. Discharge Exam - Head Exam Head Exam: ATRAUMATIC, NORMAL INSPECTION, NORMOCEPHALIC - Eye Exam Eye Exam: Normal appearance - ENT Exam ENT Exam: Mucous Membranes Moist - Neck Exam Neck exam: Full Rom - Respiratory Exam Respiratory Exam: Clear to PA & Lateral, NORMAL BREATHING PATTERN. absent: Decreased Breath Sounds, Rales, Rhonchi, Wheezes, Respiratory Distress - Cardiovascular Exam Cardiovascular Exam: REGULAR RHYTHM. absent: Tachycardia - GI/Abdominal Exam GI & Abdominal Exam: Normal Bowel Sounds, Soft. absent: Distended, Tenderness Additional comments: well healed midline incision - Extremities Exam Additional comments: chronic varicose veins bilaterally - Neurological Exam Neurological exam: Alert, Oriented x3 - Skin Skin Exam: Dry, Intact, Normal Color Discharge Plan - Discharge Medications Prescriptions: metFORMIN ER [glucoPHAGE XR] 500 mg PO DAILY 30 Days #30 ter - Follow Up Plan Condition: FAIR Disposition: HOME/ ROUTINE Patient education suggested?: Yes Instructions: Acute Abdominal Pain (GEN), [place] Diet Referrals: [facility] [Outside] Herman Horvath MD [Staff Provider] -
[2017-08-30] MEDS ORDERED: LOVASTATIN 40 MG PO SCH (22:00)
== END 2017-08-30 13:34 | disposition home or self-care (01) ==
LOC: H.ER 14:56 → H.ERHOLD 21:20 → H.MEDSURG1 22:55
PROVIDERS: ADMIT Family Medicine Geriatric Medicine; ATTEND Family Medicine Geriatric Medicine
DX: R10.32 Left lower quadrant pain (principal); R10.31 Right lower quadrant pain; K52.1 Toxic gastroenteritis and colitis; N39.0 Urinary tract infection, site not specified; E11.9 Type 2 diabetes mellitus without complications; I10 Essential (primary) hypertension; E03.9 Hypothyroidism, unspecified; E78.5 Hyperlipidemia, unspecified; E78.00 Pure hypercholesterolemia, unspecified; K76.0 Fatty (change of) liver, not elsewhere classified; E66.01 Morbid (severe) obesity due to excess calories; Z68.37 Body mass index [BMI] 37.0-37.9, adult
CPT/HCPCS: 74177; 80053; 82803; 82948; 83690; 85025; 87086; 96374; 99285; G0378; J1885; J7040; Q9966; Q9967

== ENCOUNTER 2017-12-23 13:28 | Emergency (ER) | payer OTHER, SELFPAY ==
[2017-12-23 13:29] VITALS: BMI 40.2
[2017-12-23] MEDS ORDERED: Iohexol 240 (50 ml) PO ONE (14:10)
[2017-12-23] MEDS ORDERED: Iohexol 240 (50 ml) ONE (14:22)
--- NOTE | 2017-12-23 14:32 | ED PDOC ---
HPI: Abdomen Time Seen by Provider: 12/23/17 13:45 Chief Complaint (Nursing): Female Genitourinary Chief Complaint (Provider): Abdominal Pain History Per: Patient History/Exam Limitations: no limitations Onset/Duration Of Symptoms: Days (x2) Current Symptoms Are (Timing): Still Present Additional Complaint(s): 72 year old female with a past medical history of HTN, diaetes, and thyroid problems presents to the ED with complaints of constant, non-radiating, left lower quadrant abdominal pain, onset two days ago. Patient reports of three surgeries in the abdomen in total. Patient's last abdominal surgery was done five months ago by Dr. Horvath. Additionally, patient is complaining of persistent liquid draining from the wound area of a past surgery for the last three months. Patient came today for pain evaluation and liquid drainage from the wound. Denies nausea, vomiting, diarrhea, rectal bleeding, and other complaints. Past Medical History Reviewed: Historical Data, Nursing Documentation, Vital Signs Vital Signs: Last Vital Signs Temp 98 F 12/23/17 18:57 Pulse 74 12/23/17 18:57 Resp 20 12/23/17 18:57 BP 130/70 12/23/17 18:57 Pulse Ox 98 12/23/17 18:57 - Medical History PMH: Arthritis, Depression, Diabetes, HTN, Hypercholesterolemia, Hyperthyroidism , Hypothyroidism Denies: HIV, Chronic Kidney Disease - Surgical History Surgical History: Hernia Repair (x2) - Family History Family History: States: Unknown Family Hx - Social History Current smoker - smoking cessation education provided: No Alcohol: None Drugs: Denies - Immunization History Hx Tetanus Toxoid Vaccination: No Hx Influenza Vaccination: No Hx Pneumococcal Vaccination: No - Home Medications Home Medications: Ambulatory Orders Medication Instructions Recorded Levothyroxine [Synthroid] 100 mcg PO DAILY 30 Days #30 tab 07/27/17 Losartan [Cozaar] 25 mg PO DAILY #30 tab 07/27/17 Lovastatin 40 mg PO HS 08/29/17 metFORMIN [glucOPHAGE] 1,000 mg PO BID 08/29/17 metFORMIN ER [glucoPHAGE XR] 500 mg PO DAILY 30 Days #30 ter 08/30/17 - Allergies Allergies/Adverse Reactions: Allergies Allergy/AdvReac Type Severity Reaction Status Date / Time No Known Allergies Allergy Verified 07/21/17 13:47 Review of Systems ROS Statement: Except As Marked, All Systems Reviewed And Found Negative Gastrointestinal: Positive for: Abdominal Pain (left lower quadrant ), Other ( liquid draining on abdomen region ) Physical Exam - Reviewed Nursing Documentation Reviewed: Yes Vital Signs Reviewed: Yes - Physical Exam Appears: Positive for: Well, No Acute Distress (comfortable ) Head Exam: Positive for: ATRAUMATIC, NORMOCEPHALIC Skin: Positive for: Normal Color, Warm, Dry Eye Exam: Positive for: Normal appearance, EOMI, PERRL ENT: Positive for: Normal ENT Inspection Neck: Positive for: Normal, Painless ROM, Supple Cardiovascular/Chest: Positive for: Regular Rate, Rhythm. Negative for: Murmur Respiratory: Positive for: Normal Breath Sounds. Negative for: Respiratory Distress Gastrointestinal/Abdominal: Positive for: Normal Exam, Soft, Tenderness (left lower quadrant tenderness to palpation), Other (transverse opertion wound in suprapuic area with minimal amount of discharge; midline scar healed, no tenderness or redness around the wounds) Back: Positive for: Normal Inspection. Negative for: L CVA Tenderness, R CVA Tenderness, Vertebral Tenderness Extremity: Positive for: Normal ROM. Negative for: Pedal Edema, Deformity Neurologic/Psych: Positive for: Alert, Oriented (x3). Negative for: Motor/ Sensory Deficits - Laboratory Results Result Diagrams: 12/23/17 15:35 12/23/17 15:35 - ECG O2 Sat by Pulse Oximetry: 99 (RA) Pulse Ox Interpretation: Normal Medical Decision Making Medical Decision Making: Time: 1415 Impression: abdominal pain, "draining post operative wound" Differentials include but not limited to diverticulitis, colitis, interabdominal abscess, abdominal wall seroma, UTI, nephritis. Plan: -- CT Abd Pelvis PO & IV -- BMP -- ED Urine Dipstick -- CBC with differentials -- Iohexol 50 ml PO -- IV Insertion -- Urinalysis 1800 CT abdomen result reviewed. Case discussed with Dr Horvath who recommends discharge and follow up with her office. Scribe Attestation: Documented by Erika Douglas, acting as a scribe for Dr. Randell Knowles MD. Provider Scribe Attestation: All medical record entries made by the Scribe were at my direction and personally dictated by me. I have reviewed the chart and agree that the record accurately reflects my personal performance of the history, physical exam, medical decision making, and the department course for this patient. I have also personally directed, reviewed, and agree with the discharge instructions and disposition. Disposition - Clinical Impression Clinical Impression: Wound discharge, Abdominal pain - Patient ED Disposition Is Patient to be Admitted: No Discussed With DrAlvin: Herman Horvath Doctor Will See Patient In The: Office Counseled Patient/Family Regarding: Studies Performed, Diagnosis, Need For Followup - Disposition Referrals: Herman Horvath MD [Staff Provider] - Disposition: Routine/Home Disposition Time: 18:00 Condition: GOOD Additional Instructions: Follow up with Dr Horvath in 4-5 days. Wound culture has been sent and pending for Dr Horvath to review. Instructions: Acute Abdomen (Belly Pain), Wound Care Print Language: DIVEHI
[2017-12-23 15:45] LABS: BASO # 0.1 K/uL (0.0-0.2); BASO % 0.8 % (0.0-2.0); EOS # 0.3 K/uL (0.0-0.7); EOS % 2.7 % (0.0-4.0); HEMOGLOBIN 14.8 g/dL (12.0-16.0); LYMPH # 3.9 K/uL (1.0-4.3); LYMPH % 38.4 % (20.0-40.0); MEAN CORPUSCULAR HEMOGLOBIN 29.6 pg (27.0-31.0); MEAN PLATELET VOLUME 9.8 fl (7.2-11.7); MONO # 0.9 K/uL (0.0-0.8); MONO % 9.2 % (0.0-10.0); NEUT % 48.9 % (50.0-75.0); NRBC % 0.2 % (0.0-0.0); RED CELL DISTRIBUTION WIDTH 14.4 % (11.5-14.5); WHITE BLOOD COUNT 10.3 K/uL (4.8-10.8)
[2017-12-23 15:58] LABS: BLOOD UREA NITROGEN 22 mg/dl (7-17); CALCIUM 9.2 mg/dL (8.4-10.2); GFR AFRICAN-AMERICAN > 60; GFR NON-AFRICAN AMERICAN > 60
[2017-12-23 16:41] LABS: SQUAMOUS EPITHIAL 4 /hpf (0-5); URINE BACTERIA FEW (<OCC); URINE BILIRUBIN NEGATIVE (NEGATIVE); URINE BLOOD NEGATIVE (NEGATIVE); URINE CLARITY SLIGHTY-CLOUDY (Clear); URINE COLOR YELLOW (YELLOW); URINE GLUCOSE (UA) NEG (Normal); URINE LEUKOCYTE ESTERASE NEG Leu/uL (Negative); URINE PROTEIN NEGATIVE (NEGATIVE); URINE UROBILINOGEN 0.2-1.0 mg/dL (0.2-1.0)
[2017-12-23] MEDS ORDERED: Sodium Chloride 0.9% 50 ML IV ONE (16:58)
[2017-12-23] MEDS ORDERED: Iohexol 300 100 ML IJ ONE (16:58)
--- NOTE | 2017-12-23 17:39 | CT ---
PROCEDURE: CT Abdomen and Pelvis with contrast HISTORY: LLQ pain hx surgeries and IA abscess COMPARISON: CT scan of the abdomen and pelvis dated 11/14/2017. TECHNIQUE: Contrast dose: 95 mL Omnipaque 300 Radiation dose: Total exam DLP = 865.8 mGy-cm. This CT exam was performed using one or more of the following dose reduction techniques: Automated exposure control, adjustment of the mA and/or kV according to patient size, and/or use of iterative reconstruction technique. FINDINGS: LOWER THORAX: Heart size normal. Coronary arterial and valvular calcifications. No focal consolidation or pleural effusion. LIVER: Coarse left hepatic calcifications redemonstrated. Nodular contour. No gross lesion or ductal dilatation. GALLBLADDER AND BILE DUCTS: Unremarkable. PANCREAS: Unremarkable. No gross lesion or ductal dilatation. SPLEEN: Unremarkable. ADRENALS: Unremarkable. No mass. KIDNEYS AND URETERS: Bilateral parapelvic cysts. No hydronephrosis. No solid mass. VASCULATURE: Unremarkable. No aortic aneurysm. BOWEL: Prior sigmoid surgery. Colonic diverticulosis. No obstruction. No gross mural thickening. APPENDIX: Normal appendix. PERITONEUM: Lower abdominal wall midline postsurgical changes. No free fluid. No free air. LYMPH NODES: Unremarkable. No enlarged lymph nodes. BLADDER: Unremarkable. REPRODUCTIVE: Unremarkable. BONES: No acute fracture. OTHER FINDINGS: None. IMPRESSION: No acute abdominal pelvic pathology. Numerous stable findings as above.
[2017-12-23 18:58] VITALS: BP 130/70; PULSE 74; RESP 20; TEMP 98
[2017-12-26 12:28] VITALS: O2SAT 99
== END 2017-12-23 18:57 | disposition home or self-care (01) ==
LOC: H.ER 13:28
DX: R10.2 Pelvic and perineal pain (principal); T81.89XA Other complications of procedures, not elsewhere classified, initial encounter
CPT/HCPCS: 74177; 80048; 81003; 85025; 87070; 87181; 99283; Q9966; Q9967

== ENCOUNTER 2018-04-04 09:15 | Day surgery (SDC) | payer SELFPAY ==
[2018-04-04 10:12] VITALS: BMI 38.9
[2018-04-04] MEDS ORDERED: Lactated Ringer's 500 ML IV ONE (10:16)
[2018-04-04] MEDS ORDERED: Propofol 10 mg/ml Inj (20 ML) ONE (10:55)
[2018-04-04 12:24] VITALS: PULSE 71; RESP 23; TEMP 96.7; O2SAT 9
[2018-04-04 12:25] VITALS: BP 109/64
== END 2018-04-04 13:19 | disposition home or self-care (01) ==
LOC: H.ENDO 09:15
PROVIDERS: ATTEND Internal Medicine Gastroenterology
DX: Z85.038 Personal history of other malignant neoplasm of large intestine (principal); Z98.0 Intestinal bypass and anastomosis status; K57.30 Diverticulosis of large intestine without perforation or abscess without bleeding; K64.8 Other hemorrhoids
CPT/HCPCS: G0105; J2001; J2704; J7120

== ENCOUNTER 2018-04-19 10:13 | Day surgery (SDC) | payer SELFPAY ==
[2018-04-19 11:32] VITALS: BMI 32.1
[2018-04-19] MEDS ORDERED: Lidocaine 1% 5ml Abboject ONE (13:04)
[2018-04-19] MEDS ORDERED: Midazolam 2 MG/2 ML VIAL ONE (13:06)
[2018-04-19] MEDS ORDERED: Absorbable Gelatin Sponge Size 12-7 ONE (13:16)
--- NOTE | 2018-04-19 13:25 | CP.SDSHP ---
Same Day Surgery H & P - History Proposed Procedure: US guided liver biopsy Pre-Op Diagnosis: Abnormal LFTs - Allergies Allergies: Allergies No Known Allergies Allergy (Verified 04/19/18 10:32) - Physical Exam Vital Signs: Vital Signs 04/19/18 04/19/18 11:22 11:27 Temperature 97.9 F Pulse Rate 74 74 Respiratory 16 Rate Blood Pressure 116/66 O2 Sat by Pulse 97 Oximetry Mental Status: Alert & Oriented x3 Neuro: WNL Heart: WNL Lungs: WNL - Impression Impression: Pt with abnormal LFTs referred for liver biopsy. Plan US guided liver biopsy. Informed consent obtained. Pt. Evaluated Today:Candidate for Anesthesia & Procedure: Yes (ASA 3 Malampati 3) - Date & Time Date: 04/19/18 Time: 13:00 Short Stay Discharge - Short Stay Discharge Admitting Diagnosis/Reason for Visit: K74.60 Disposition: HOME/ ROUTINE
--- NOTE | 2018-04-19 13:27 | PCM.SURG1 ---
Surgeon's Initial Post Op Note - Surgeon's Notes Surgeon: Trever Blanca MD Edge Sander: NONE Type of Anesthesia: IV Sedation, Moderate Sedation{RN} Pre-Operative Diagnosis: Abnormal LFTs Operative Findings: US showed unremarkable left hepatic lobe. Post-Operative Diagnosis: Abnormal LFTs Operation Performed: US guided left liver biopsy. Three 18-g core specimen obtained. Biopsy tract embolized with gelfoam. Specimen/Specimens Removed: 18-g core x 3 Estimated Blood Loss: EBL {In ML}: 3 Blood Products Given: N/A Drains Used: No Drains Post-Op Condition: Good Date of Surgery/Procedure: 04/19/18 Time of Surgery/Procedure: 13:20
[2018-04-19] MEDS ORDERED: Sodium Chloride 0.45% 1,000 ML IV SCH (13:30)
[2018-04-19 13:38] VITALS: O2SAT 100
[2018-04-19] MEDS: Lactated Ringer's 1,000 ML IV ONE ×3 (13:38→15:05)
[2018-04-19] MEDS ORDERED: Lactated Ringer's 1,000 ML IV SCH (13:45)
[2018-04-19 15:22] VITALS: RESP 18
[2018-04-19 16:30] VITALS: BP 101/53; PULSE 80; TEMP 97.7
== END 2018-04-19 16:25 | disposition home or self-care (01) ==
LOC: H.OPSURG 10:13
PROVIDERS: ATTEND Family Medicine
DX: K74.60 Unspecified cirrhosis of liver (principal); M19.90 Unspecified osteoarthritis, unspecified site; J45.909 Unspecified asthma, uncomplicated; E11.9 Type 2 diabetes mellitus without complications; E78.5 Hyperlipidemia, unspecified; I10 Essential (primary) hypertension; E66.9 Obesity, unspecified
CPT/HCPCS: 47000; 76942; 82948; 88307; J2250; J3010; J7030; J7120

== ENCOUNTER 2018-05-30 13:31 | Emergency (ER) | payer SELFPAY ==
[2018-05-30 13:31] VITALS: BMI 32.1
[2018-05-30 14:00] VITALS: RESP 18
--- NOTE | 2018-05-30 16:51 | ED PDOC ---
HPI: Wound Care - HPI Time Seen by Provider: 05/30/18 16:25 Chief Complaint (Nursing): Wound Check Chief Complaint (Provider): Wound Check History Per: Patient Exam Limitations: no limitations Additional Complaint(s): Inga Leger is a 73 year old female with a past medical history of HTN, HLD, and hernia, presents to the emergency room for a wound check. Patient states she has had a hernia operation with Dr. Horvath on 07/21. She is noted to be a poor historian about her post operation complications. Patient states x5 months ago, the wound opened up and she had drainage and fevers. She followed up with Dr. Horvath, who saw her most recently on 05/18. As per patient, she has to arrange for another procedure but the date has not been set. Patient is noted to be fairly aggressive, frustrated, and agitated with post operative care course and wants to see Dr. Horvath now. She states she has had no change in symptoms over the past x6 months. PMD: David Henriquez Past Medical History Reviewed: Historical Data, Nursing Documentation, Vital Signs Vital Signs: Last Vital Signs Temp 97 F L 05/30/18 13:56 Pulse 85 05/30/18 13:56 Resp 18 05/30/18 13:56 BP 146/64 05/30/18 13:56 Pulse Ox 98 05/30/18 13:56 - Medical History PMH: Arthritis, Depression, Diabetes, Diverticulitis, HTN, Hypercholesterolemia, Hypothyroidism Denies: HIV, Chronic Kidney Disease - Surgical History Surgical History: Hernia Repair (x2) - Family History Family History: States: Unknown Family Hx - Immunization History Hx Tetanus Toxoid Vaccination: No Hx Influenza Vaccination: No Hx Pneumococcal Vaccination: No - Home Medications Home Medications: Ambulatory Orders Medication Instructions Recorded RX: Levothyroxine [Synthroid] 100 mcg PO DAILY 30 Days #30 tab 07/27/17 RX: Losartan [Cozaar] 25 mg PO DAILY #30 tab 07/27/17 RX: Lovastatin 20 mg PO HS 08/29/17 RX: Glipizide [Glipizide ER] 2.5 mg PO DAILY 04/19/18 - Allergies Allergies/Adverse Reactions: Allergies Allergy/AdvReac Type Severity Reaction Status Date / Time No Known Allergies Allergy Verified 05/30/18 13:56 Review of Systems ROS Statement: Except As Marked, All Systems Reviewed And Found Negative Psych: Positive for: Other (agitated ) Physical Exam - Reviewed Nursing Documentation Reviewed: Yes Vital Signs Reviewed: Yes - Physical Exam Appears: Positive for: Non-toxic, No Acute Distress Head Exam: Positive for: ATRAUMATIC, NORMOCEPHALIC Skin: Positive for: Normal Color, Warm, Dry Gastrointestinal/Abdominal: Positive for: Other (2 areas of wound dehiscence; 1.5 cm each horizontal to the lower abdomen with one suture present on the right sided wound; (-) drainage or surrounding erythema). Negative for: Tenderness, Guarding, Rebound - ECG O2 Sat by Pulse Oximetry: 98 (RA) Pulse Ox Interpretation: Normal Medical Decision Making Medical Decision Making: Time: 16:25 Plan: Calls placed to residential collections 3p-5p however they were in a case. Case d/w surgical territory manager who agreed to evaluate pt. Bedside US done by surg resident and suture removed, then d/s/d applied by her. Surg is requesting abd. cortez however while trying to obtain one central pt. did not want to wait and requested to leave prior to abd. cortez. Pt. instructed to f/u with Dr. Horvath. Scribe Attestation: Documented by Rahat Tim, acting as a scribe for Sandhya Mandujano PA-C. Provider Scribe Attestation: All medical record entries made by the Scribe were at my direction and personally dictated by me. I have reviewed the chart and agree that the record accurately reflects my personal performance of the history, physical exam, medical decision making, and the department course for this patient. I have also personally directed, reviewed, and agree with the discharge instructions and disposition. Disposition - Clinical Impression Clinical Impression: Encounter for wound re-check - Patient ED Disposition Is Patient to be Admitted: No Counseled Patient/Family Regarding: Diagnosis, Need For Followup - Disposition Referrals: Herman Horvath MD [Staff Provider] - Disposition: Routine/Home Disposition Time: 18:57 Condition: STABLE Additional Instructions: bacitracin to wound. use abdominal binder. follow up with your surgeon dr. horvath Instructions: Wound Dehiscence (DC) Forms: [employer] (Lao) Print Language: GREENLANDIC
[2018-05-30 19:11] VITALS: BP 138/88; PULSE 62; TEMP 98.2
[2018-05-30 20:04] VITALS: O2SAT 98
== END 2018-05-30 19:11 | disposition home or self-care (01) ==
LOC: H.ER 13:31
DX: Z48.02 Encounter for removal of sutures (principal); Z48.01 Encounter for change or removal of surgical wound dressing

== ENCOUNTER 2018-07-17 07:28 | Day surgery (SDC) | payer SELFPAY ==
[2018-07-03 10:44] VITALS: BMI 38.5
[2018-07-17] MEDS ORDERED: Lidocaine 1% w Epi 1:100,000 Inj ONE (09:11)
[2018-07-17] MEDS ORDERED: Lactated Ringer's 1,000 ML IV ONE (09:11)
[2018-07-17] MEDS ORDERED: ceFAZolin IV 1 gm in Dextrose 1 GM/50 ML BAG IVPB ONE (09:11)
[2018-07-17] MEDS ORDERED: Lidocaine 1% Inj (20ml) ONE (09:11)
--- NOTE | 2018-07-17 10:03 | CP.SDSHP ---
Same Day Surgery H & P - History Proposed Procedure: Removal of stitch abscess Pre-Op Diagnosis: stitch abscess - Allergies Allergies: Allergies No Known Allergies Allergy (Verified 07/17/18 08:55) - Physical Exam Vital Signs: Vital Signs 07/17/18 07/17/18 08:39 08:46 Temperature 98 F Pulse Rate 74 73 Respiratory 16 Rate Blood Pressure 116/65 O2 Sat by Pulse 98 Oximetry Mental Status: Alert & Oriented x3 Neuro: WNL Heart: WNL Lungs: WNL GI: WNL - {Optional Preform as Required} Breast: WNL Abdomen: Other (stitch abscess) Rectal: WNL Integument: WNL RESERVATION CLERK: WNL : WNL - Date & Time Date: 07/17/18 Time: 10:02 Short Stay Discharge - Short Stay Discharge Admitting Diagnosis/Reason for Visit: ABD PAIN Disposition: HOME/ ROUTINE Referrals: Herman Horvath MD [Staff Provider] - Follow-up: 1) Follow up in clinic in 2 weeks Instructions: Wound Care (DC) Additional Instructions (Diet, Activity): 1) return to regular diet 2) may shower but do not bath 3) daily wound care 4) return to ER for emergencies
[2018-07-17] MEDS ORDERED: Propofol 10 mg/ml Inj (20 ML) ONE (10:17)
[2018-07-17] MEDS ORDERED: Midazolam 2 MG/2 ML VIAL ONE (10:18)
[2018-07-17] MEDS ORDERED: Lidocaine 2% Jelly (5 ml) TOP ONE (10:18)
[2018-07-17] MEDS ORDERED: Lidocaine 1% 5ml Abboject ONE (10:18)
[2018-07-17] MEDS ORDERED: Lactated Ringer's 1,000 ML IV SCH (11:15)
--- NOTE | 2018-07-17 11:17 | PCM.SURG1 ---
Surgeon's Initial Post Op Note - Surgeon's Notes Surgeon: Herman Horvath. Tag Writer: Chata PGY3 Pre-Operative Diagnosis: Abdominal stitch abscess *2 , suture sinus*2 Operative Findings: abdominal stitch sinus*2 Post-Operative Diagnosis: same Operation Performed: Exploration of abdominal stitch sinus, Removal of 4 pieces of sutures Specimen/Specimens Removed: sutures Estimated Blood Loss: EBL {In ML}: 1 Date of Surgery/Procedure: 07/17/18 Time of Surgery/Procedure: 11:16
[2018-07-17 11:39] VITALS: RESP 18
[2018-07-17 12:20] VITALS: O2SAT 96
[2018-07-17 14:23] VITALS: BP 104/60; PULSE 89; TEMP 98
--- NOTE | 2018-07-18 07:06 | OP ---
PROCEDURE DATE: 07/17/2018 PREOPERATIVE DIAGNOSIS: Stitch abscess of the abdomen x2. POSTOPERATIVE DIAGNOSIS: Stitch abscess of the abdomen x2. PROCEDURE: Removal of exposed stitch and sinus tract excision. SURGEON: Herman Horvath MD. WORK CHECKER: Satya Brizuela, PGY-3. TYPE OF ANESTHESIA: General. ANESTHESIA ADMINISTERED BY: Espinoza Garcia MD DESCRIPTION OF PROCEDURE: Upon intubation in the supine position, the patient's abdomen was prepped and draped in the usual sterile fashion. In the right lower quadrant and the left lower quadrant were two sinuses noted. Both sinuses were explored with small Luann clamp until exposed sutures were able to be assumed. Sutures were transected as fairly as possible. Two sutures were noted in the left lower quadrant suture sinus and another two were noted in the right lower quadrant suture sinus. Upon removal of exposed sutures, the wall of the sinus was debrided with sharp debridement and then irrigated well with normal saline. Further care was noted to make sure there were no retained sutures. Upon removal of sutures and suture sinus, dressing was placed with a 4x4 and Tegaderm on both the right lower quadrant and left lower quadrant suture sinuses. The patient tolerated the procedure well and was transferred to the PACU without any complication. Estimated blood was 2 mL. Satya Brizuela DO Herman Horvath MD
== END 2018-07-17 15:56 | disposition home or self-care (01) ==
LOC: H.OPSURG 07:28
PROVIDERS: ATTEND Specialist
DX: T81.41XA Infection following a procedure, superficial incisional surgical site, initial encounter (principal); M19.90 Unspecified osteoarthritis, unspecified site; E11.9 Type 2 diabetes mellitus without complications; E78.5 Hyperlipidemia, unspecified; I10 Essential (primary) hypertension; E03.9 Hypothyroidism, unspecified; E66.9 Obesity, unspecified; Z87.891 Personal history of nicotine dependence; K76.0 Fatty (change of) liver, not elsewhere classified
CPT/HCPCS: 10121; 82948; 88304; J0690; J2250; J2704; J2765; J3010; J7030; J7120